=== PATIENT | female | born 1930 | race Caucasian/White ===

== ENCOUNTER 2016-02-19 18:59 | Inpatient (IN) | payer MEDICARE ==
[~2016-02-19] VITALS: Ht 165.1 cm; Wt 72.9 kg
[~2016-02-19 18:59] MED LIST: ASPI81TA82 PO; CIPR500T4 PO; CLOP75 PO; GEMF600 PO; GLIM2 PO; LOSA50 PO; METF500 PO; PRAV80 PO; SYNT137T PO; TASI150C OR
[2016-02-19 19:05] VITALS: BP 190/99; PULSE 105; RESP 16; TEMP 98.5; O2SAT 98
[2016-02-19] MEDS ORDERED: CIPR-9 PO (19:54)
[2016-02-19] MEDS ORDERED: METF1000 PO (19:54)
[2016-02-19] MEDS ORDERED: ASPI1TAB69 PO (19:54)
[2016-02-19] MEDS ORDERED: PRAV80TA2 PO (19:54)
[2016-02-19] MEDS ORDERED: LEVO125T4 PO (19:54)
[2016-02-19] MEDS ORDERED: LOSA50TA PO (19:54)
[2016-02-19] MEDS ORDERED: TASI150C PO (19:54)
[2016-02-19] MEDS ORDERED: ASPIRIN 81 MG CHEW TAB PO ONE (20:00)
[2016-02-19] MEDS ORDERED: SODIUM CHLORIDE 0.9% FLUSH 5 ML FLUSH IVF PRN ×2 (20:00→23:45)
[2016-02-19 20:02] LABS: AUTOMATED NEUTROPHIL # 9.6 TH/MM3 (1.8-7.7); BASOPHIL # 0.4 TH/MM3 (0-0.2); BASOPHIL % 3.4 % (0.0-2.0); EOSINOPHIL % 0.3 % (0.0-4.0); HEMO FLAGS DIFF FINAL; LYMPH % 14.6 % (9.0-44.0); LYMPHOCYTE # 1.8 TH/MM3 (1.0-4.8); MEAN CELL VOLUME 83.8 FL (80.0-100.0); MEAN CORPUSCULAR HEMOGLOBIN 26.7 PG (27.0-34.0); MEAN CORPUSCULAR HGB CONC 31.9 % (32.0-36.0); NEUT % 76.7 % (16.0-70.0); PLATELET COUNT 424 TH/MM3 (150-450); RED BLOOD COUNT 3.58 MIL/MM3 (4.00-5.30); WHITE BLOOD COUNT 12.4 TH/MM3 (4.0-11.0)
[2016-02-19 20:11] LABS: CHLORIDE 93 MEQ/L (98-107); POTASSIUM 3.9 MEQ/L (3.5-5.1); SODIUM (NA) 130 MEQ/L (136-145)
[2016-02-19 20:15] LABS: ANION GAP 13 MEQ/L (5-15); BICARBONATE 24.5 MEQ/L (21.0-32.0); BLOOD UREA NITROGEN 10 MG/DL (7-18)
[2016-02-19 20:16] LABS: APTT (PATIENT) 25.7 SEC (24.3-30.1); INTERNATIONAL NORMALIZED RATIO 0.9 RATIO; PROTHROMBIN TIME - PATIENT 10.3 SEC (9.8-11.6)
[2016-02-19 20:18] LABS: ALT (GPT) 31 U/L (10-53); AST (GOT) 19 U/L (15-37); GLOMERULAR FILTRATION RATE 70 ML/MIN (>89)
[2016-02-19 20:19] VITALS: BP 187/85; PULSE 107; RESP 18; O2SAT 97
[2016-02-19 20:19] LABS: TOTAL BILIRUBIN ADULT 0.4 MG/DL (0.2-1.0)
[2016-02-19 20:21] LABS: ALKALINE PHOSPHATASE 93 U/L (45-117)
[2016-02-19 20:30] LABS: CREATINE KINASE 71 U/L (26-192)
[2016-02-19 20:40] LABS: BLOOD, URINE NEG (NEG); GLUCOSE,URINE NEG (NEG); KETONE, URINE 15 mg/dL (NEG); NITRITE,URINE NEG (NEG)
[2016-02-19 20:55] LABS: METHOD OF COLLECTION VOIDED; URINE COLOR STRAW (YELLW/STRAW)
[2016-02-19 20:56] LABS: SQUAMOUS EPITHELIAL CELL URINE 0-3 /hpf (0-5); WBC, URINE 0-2 /hpf (0-5)
[2016-02-19 20:57] LABS: COMMENT (UR) CULT NOT INDICATED; CULTURE IF INDICATED CULT NOT INDICATED
--- NOTE | 2016-02-19 20:59 | RADHPO ---
EXAM DATE/TIME: 02/19/2016 20:26 [facility] COMPARISON: CHEST PA & LAT, November 27, 2014, 23:09. INDICATIONS : Chest pain. MEDICAL HISTORY : Hypertension. Hypercholesterolemia. Carcinoma, breast. Thyroid disease, Gallbladder disease, GERD , Arthritis, Bladder prolapse, Diabetes, Anemia, Shingles SURGICAL HISTORY : Coronary artery stent. Appendectomy. Cholecystectomy. Right breast biopsy, Tubal ligation, Hysterecto my, ENCOUNTER: Initial ACUITY: 1 day PAIN SCORE: 1/10 LOCATION: Bilateral chest FINDINGS: Subsegmental airspace disease present at the bases. Heart size is mildly enlarged. Trace pleural flui d.. No pneumothorax. Atherosclerotic change in aorta. CONCLUSION: 1. Subsegmental airspace disease at the lung bases. No pneumothorax. Jorge Avila MD on February 19, 2016 at 20:55 Board Certified Radiologist. This report was verified electronically.
[2016-02-19] MEDS ORDERED: FUROSEMIDE 40 MG/4 ML VIAL IV PUSH ONE (21:00)
[2016-02-19 21:10] VITALS: BP 182/74; PULSE 101; RESP 18; O2SAT 95
[2016-02-19] MEDS ORDERED: IOHEXOL 350 MG/ML 10 ML VIAL (for RAD DIAG) IV ONE (22:03)
--- NOTE | 2016-02-19 22:30 | RADHPO ---
EXAM DATE/TIME: 02/19/2016 21:48 [facility] COMPARISON: CT PULMONARY ANGIOGRAM, November 12, 2015, 10:05. INDICATIONS : Chest pain. IV CONTRAST: 75 cc Omnipaque 350 (iohexol) IV RADIATION DOSE: 12.55 CTDIvol (mGy) MEDICAL HISTORY : Hypertension. Gastroesophageal reflux disease. SURGICAL HISTORY : None. ENCOUNTER: Initial ACUITY: 1 day PAIN SCALE: 7/10 LOCATION: chest TECHNIQUE: Volumetric scanning of the chest was performed using a pulmonary embolism protocol MIP images were re constructed. Using automated exposure control and adjustment of the mA and/or kV according to patien t size, radiation dose was kept as low as reasonably achievable to obtain optimal diagnostic quality images. FINDINGS: There are no filling defects identified to suggest pulmonary embolic disease. Small bilateral pleural effusions. Scattered subsegmental atelectasis in the lungs. Pulmonary nodule right lower lobe is sta ble in appearance compared with October 2015. Moderate to severe coronary artery calcifications. No acute findings in the upper abdomen. CONCLUSION: 1. Negative for pulmonary embolic disease. 2. 12 mm nodule right lower lobe medially is stable in size and appearance since October 2015. Simeon jeremy, this is increased in size since 2013. Finding is suspicious for a slow-growing malignancy. Furth er evaluation with PET CT recommended if this has not been performed. 3. Small bilateral pleural effusions. Scattered atelectasis and scarring in the lungs. Jorge Avila MD on February 19, 2016 at 22:21 Board Certified Radiologist. This report was verified electronically.
[2016-02-19 22:31] VITALS: BP 174/80; PULSE 102; RESP 18; O2SAT 97
--- NOTE | 2016-02-19 22:35 | PD ---
HPI Chief Complaint: Chest Pain Time Seen by Provider: 19:44 Travel History International Travel<30 days: No Contact w/Intl Traveler<30days: No Traveled to known affect area: No History of Present Illness HPI Patient is an 85-year-old female presents emergency Department with shortness of breath and leg swelling for the past week. Patient states that earlier today she did have the sensation in her upper chest that she thought was reflux disease as well. She did not take anything for it and resolved spontaneously. She does not have a cloth colorer. She has no history of congestive heart failure ACS. No cough no congestion. She states that her shortness of breath does get worse when she exerts herself or lays flat. Denies any fever. PFSH Past Medical History Hx Anticoagulant Therapy: No Anemia: Yes Arthritis: Yes Asthma: No Anxiety: No Depression: No Heart Rhythm Problems: No Cancer: Yes (CML, RIGHT BREAST) Cardiac Catheterization: Yes (NEGATIVE IN THE ) Cardiovascular Problems: Yes High Cholesterol: Yes Chemotherapy: Yes Chest Pain: Yes (OCC) Congestive Heart Failure: No COPD: No Cerebrovascular Accident: Yes (TIA X2) Diabetes: Yes Patient Takes Glucophage: Yes Diminished Hearing: No Endocrine: Yes Gastrointestinal Disorders: No GERD: Yes Genitourinary: Yes (Bladder prolapse, FIBROID TUMORS) Headaches: Yes Hepatitis: No Hiatal Hernia: No Hypertension: Yes Immune Disorder: No Implanted Vascular Access Dvce: No Kidney Stones: No Musculoskeletal: Yes (BACK, HIP) Neurologic: No Psychiatric: No Reproductive: No Respiratory: Yes Migraines: No Radiation Therapy: No Renal Failure: No Seizures: No Shingles: Yes Sleep Apnea: No Thyroid Disease: Yes Ulcer: No Tetanus Vaccination: Unknown Influenza Vaccination: Yes ?: Not Menopausal: Yes : 2 Para: 2 Tubal Ligation: Yes Past Surgical History Abdominal Surgery: Yes AICD: No Appendectomy: Yes Arteriovenous Shunt: No Cardiac Surgery: No Section: Yes (X1) Cholecystectomy: Yes Ear Surgery: No Endocrine Surgery: No Eye Surgery: Yes (cataract RIGHT EYE) Genitourinary Surgery: Yes ("2009,bladder surgery,prolapse") Gynecologic Surgery: Yes (PARTIAL HYSTERECTOMY, C SECTION) Hysterectomy: Yes (PARTIAL) Insulin Pump: No Joint Replacement: No Mastectomy: Yes (RIGHT BREAST BIOPSY ONLY) Neurologic Surgery: No Oral Surgery: No Pacemaker: No Thoracic Surgery: No Other Surgery: Yes ("blocked tear duct,left side") Social History Alcohol Use: Yes ("GLASS OF WINE VERY RARELY") Tobacco Use: No (QUIT IN S) Substance Use: No Allergies-Medications (Allergen,Severity, Reaction): Coded Allergies: Sulfa (Verified Allergy, Severe, "face swells", 02/19/16) Codeine (Verified Adverse Reaction, Severe, "heart races", 02/19/16) Reported Meds & Prescriptions Reported Meds & Active Scripts Active Reported Pravastatin 80 Mg Tab 80 Mg PO HS Tasigna (Nilotinib) 150 Mg Cap 150 Mg PO Q12H Take on empty stomach Losartan (Losartan Potassium) 50 Mg Tab 50 Mg PO Q12HR Metformin (Metformin HCl) 1,000 Mg Tab 1,000 Mg PO BIDPC With meals Levothyroxine (Levothyroxine Sodium) 125 Mcg Tab 125 Mcg PO DAILY Cipro (Ciprofloxacin HCl) 500 Mg Tab 500 Mg PO BID Aspirin 81 Mg Tabdr 81 Mg PO DAILY Physical Exam Narrative GENERAL: Well-developed well-nourished in no apparent distress SKIN: Warm and dry. No rash. HEAD: Atraumatic. Normocephalic. EYES: Pupils equal and round. No scleral icterus. No injection or drainage. ENT: No nasal bleeding or discharge. Mucous membranes pink and moist. NECK: Trachea midline. No JVD. CARDIOVASCULAR: Regular rhythm and tachycardic.. No murmur appreciated. 2+ bilateral equal pulses in all 4 extremities RESPIRATORY: No accessory muscle use. Bibasilar faint rales otherwise clear.. Breath sounds equal bilaterally. GASTROINTESTINAL: Abdomen soft, non-tender, nondistended. Hepatic and splenic margins not palpable. MUSCULOSKELETAL: No obvious deformities. No clubbing. No cyanosis. 2+ bilateral equal pitting edema of the lower extremities level of the knee.. NEUROLOGICAL: Awake and alert. No obvious cranial nerve deficits. Motor grossly within normal limits. Normal speech. PSYCHIATRIC: Appropriate mood and affect; insight and judgment normal. Data Data Last Documented VS Vital Signs Date Time Temp Pulse Resp B/P Pulse Ox O2 Delivery O2 Flow Rate FiO2 02/19/16 23:24 108 18 184/75 97 Room Air 02/19/16 19:05 98.5 Orders Electrocardiogram (02/19/16 19:50) B-Type Natriuretic Peptide (02/19/16 19:50) Ckmb (Isoenzyme) Profile (02/19/16 19:50) Complete Blood Count With Diff (02/19/16 19:50) Comprehensive Metabolic Panel (02/19/16 19:50) Prothrombin Time / Inr (Pt) (02/19/16 19:50) Act Partial Throm Time (Ptt) (02/19/16 19:50) Troponin I (02/19/16 19:50) Ecg Monitoring (02/19/16 19:50) Bilateral Bp Monitoring (02/19/16 19:50) Iv Access Insert/Monitor (02/19/16 19:50) Oximetry (02/19/16 19:50) Oxygen Administration (02/19/16 19:50) Aspirin Chew (Aspirin Chew) (02/19/16 20:00) Sodium Chloride 0.9% Flush (Ns Flush) (02/19/16 20:00) Chest, Pa & Lat (02/19/16 19:50) Urinalysis - C+S If Indicated (02/19/16 19:54) Us Leg Venous Doppler Bilat (02/19/16 20:55) Ct Pulmonary Angiogram (02/19/16 ) Furosemide Inj (Lasix Inj) (02/19/16 21:00) Iohexol 350 Inj (Omnipaque 350 Inj) (02/19/16 22:03) Admit Order (Ed Use Only) (02/19/16 ) ^ Refinery Operator Helper / Telemetry (02/19/16 23:34) Creatine Kinase (Cpk) (02/20/16 01:50) Creatine Kinase (Cpk) (02/20/16 07:50) Troponin I (02/20/16 01:50) Troponin I (02/20/16 07:50) ^ Saline Lock (02/19/16 23:34) Resp Oxygen Clif C Titrat 1-4 L (02/19/16 ) ^ Notify Dr: Other (02/19/16 23:34) Sodium Chloride 0.9% Flush (Ns Flush) (02/20/16 09:00) Sodium Chloride 0.9% Flush (Ns Flush) (02/19/16 23:45) Labs Laboratory Tests Test 02/19/16 02/19/16 19:50 20:10 White Blood Count 12.4 TH/MM3 Red Blood Count 3.58 MIL/MM3 Hemoglobin 9.6 GM/DL Hematocrit 30.0 % Mean Corpuscular Volume 83.8 FL Mean Corpuscular Hemoglobin 26.7 PG Mean Corpuscular Hemoglobin 31.9 % Concent Red Cell Distribution Width 16.0 % Platelet Count 424 TH/MM3 Mean Platelet Volume 9.2 FL Neutrophils (%) (Auto) 76.7 % Lymphocytes (%) (Auto) 14.6 % Monocytes (%) (Auto) 5.0 % Eosinophils (%) (Auto) 0.3 % Basophils (%) (Auto) 3.4 % Neutrophils # (Auto) 9.6 TH/MM3 Lymphocytes # (Auto) 1.8 TH/MM3 Monocytes # (Auto) 0.6 TH/MM3 Eosinophils # (Auto) 0.0 TH/MM3 Basophils # (Auto) 0.4 TH/MM3 CBC Comment DIFF FINAL Differential Comment Prothrombin Time 10.3 SEC Prothromb Time International 0.9 RATIO Ratio Activated Partial 25.7 SEC Thromboplast Time Sodium Level 130 MEQ/L Potassium Level 3.9 MEQ/L Chloride Level 93 MEQ/L Carbon Dioxide Level 24.5 MEQ/L Anion Gap 13 MEQ/L Blood Urea Nitrogen 10 MG/DL Creatinine 0.78 MG/DL Estimat Glomerular Filtration 70 ML/MIN Rate Random Glucose 152 MG/DL Calcium Level 8.7 MG/DL Total Bilirubin 0.4 MG/DL Aspartate Amino Transf 19 U/L (AST/SGOT) Alanine Aminotransferase 31 U/L (ALT/SGPT) Alkaline Phosphatase 93 U/L Total Creatine Kinase 71 U/L Troponin I 0.02 NG/ML B-Type Natriuretic Peptide 258 PG/ML Total Protein 7.6 GM/DL Albumin 3.7 GM/DL Urine Collection Type VOIDED Urine Color STRAW Urine Turbidity CLEAR Urine pH 7.0 Urine Specific [place] 1.015 Urine Protein NEG mg/dL Urine Glucose (UA) NEG mg/dL Urine Ketones 15 mg/dL Urine Occult Blood NEG Urine Nitrite NEG Urine Bilirubin NEG Urine Leukocyte Esterase TRACE Urine WBC 0-2 /hpf Urine Squamous Epithelial 0-3 /hpf Cells Microscopic Urinalysis Comment CULT NOT INDICATED MDM Medical Decision Making Medical Screen Exam Complete: Yes Emergency Medical Condition: Yes Interpretation(s) EKG shows sinus tachycardia with normal axis normal R-wave progression. There is a biphasic T-wave pattern and V6 without any reciprocal changes. This is an abnormal EKG. Comparison to 11/12/2015, biphasic T-wave pattern and V6 is new, patient is not tachycardic. Differential Diagnosis ACS, RI, new onset CHF, PE, DVT. Narrative Course Patient is an 85-year-old female presents today with appears to be new onset congestive heart failure. She does have pedal edema and small rales in both bases. She is saturating well and appears well. CT of her PE is pending as well as an ultrasound. At 2235 I have been tasked with transporting a critically ill patient. Patient will be signed out temporarily to Dr. Samir Javier. She is stable for time being. She's been given Lasix. I return to the emergency department after the emergent transfer, patient is already been admitted to the hospitalist by Dr. aJvier for new onset CHF. Patient's EKG has been reviewed troponin negative BNP is minimally elevated to 58, animal hyponatremia at 130 UA negative. Patient has been informed of her findings and agrees for admission at this time. She states she is a little less short of breath after some Lasix. Last 24 hours Impressions Lower Extremity Ultrasound 02/19/162054 Signed Impressions: Service Date/Time: Friday, February 19, 2016 21:59 - CONCLUSION: Normal examination. Jorge Avila MD Chest X-Ray 02/19/16 1950 Signed Impressions: Service Date/Time: Friday, February 19, 2016 20:26 - CONCLUSION: 1. Subsegmental airspace disease at the lung bases. No pneumothorax. Jorge Avila MD CT Angiography 02/19/16 0000 Signed Impressions: Service Date/Time: Friday, February 19, 2016 21:48 - CONCLUSION: 1. Negative for pulmonary embolic disease. 2. 12 mm nodule right lower lobe medially is stable in size and appearance since October 2015. However, this is increased in size since 2013. Finding is suspicious for a slow-growing malignancy. Further evaluation with PET CT recommended if this has not been performed. 3. Small bilateral pleural effusions. Scattered atelectasis and scarring in the lungs. Jorge Avila MD Diagnosis Primary Impression: Congestive heart failure Qualified Code: I50.9 - Congestive heart failure, unspecified congestive heart failure chronicity, unspecified congestive heart failure type Admitting Information Admitting Physician Requests: Observation Condition: Stable Mika Bertrand MD Feb 19, 2016 22:35
--- NOTE | 2016-02-19 22:35 | RADHPO ---
EXAM DATE/TIME: 02/19/2016 21:59 [facility] COMPARISON: No previous studies available for comparison. INDICATIONS : Feet swelling. MEDICAL HISTORY : Hypertension. Hypercholesterolemia. Thyroid disease. SURGICAL HISTORY : Appendectomy.Cholecystectomy. Hysterectomy.Right breast biopsy. section. Tubal ligation. ENCOUNTER: Initial ACUITY: 2 weeks PAIN SCORE: 2/10 LOCATION: Bilateral leg. TECHNIQUE: Venous ultrasound of the left and right leg was performed from the inguinal ligament to the proximal calf. Real-time, color Doppler and spectral tracing, compression and augmentation techniques were us ed. FINDINGS: RIGHT LEG: There is normal compressibility of the deep venous system from the inguinal region to the proximal ca lf. No echogenic clot is seen in the lumen of the common femoral, femoral, popliteal, and posterior tibial veins. There is a normal response of the venous system to proximal and distal augmentation an d respiration. LEFT LEG: There is normal compressibility of the deep venous system from the inguinal region to the proximal ca lf. No echogenic clot is seen in the lumen of the common femoral, femoral, popliteal, and posterior tibial veins. There is a normal response of the venous system to proximal and distal augmentation an d respiration. CONCLUSION: Normal examination. Jorge Avila MD on February 19, 2016 at 22:32 Board Certified Radiologist. This report was verified electronically.
--- NOTE | 2016-02-19 22:45 | EKG ---
Date Performed: 02/19/2016 Time Performed: 19:17:08 PTAGE: 85 years EKG: Sinus tachycardia Nonspecific ST and T wave abnormalities Abnormal ECG PREVIOUS TRACING : 11/12/2015 08.00 Since previous tracing, no significant change noted DOCTOR: Derrick Dahl Interpretating Date/Time 02/19/2016 22:43:37
[2016-02-19 23:24] VITALS: BP 184/75; PULSE 108; RESP 18; O2SAT 97
[2016-02-20] VITALS (10 sets, daily range): BP systolic 121–175; BP diastolic 57–85; PULSE 64–101; RESP 18–20; TEMP 97–98; O2SAT 94–98
[2016-02-20] MEDS ORDERED: LORA1TAB12 PO (01:35)
[2016-02-20] MEDS ORDERED: AMIT10TA6 PO (01:35)
[2016-02-20] MEDS ORDERED: LORazepam 1 MG TAB PO SCH (02:00)
[2016-02-20] MEDS ORDERED: AMITRIPTYLINE HCL 10 MG TAB PO SCH (02:00)
--- NOTE | 2016-02-20 02:23 | PD ---
Physical Exam Date Seen by Provider: Feb 19, 2016 Time Seen by Provider: 23:00 Narrative accepted in transfer of care from Dr Bertrand Data Data Last Documented VS Vital Signs Date Time Temp Pulse Resp B/P Pulse Ox O2 Delivery O2 Flow Rate FiO2 02/19/16 23:24 108 18 184/75 97 Room Air 02/19/16 19:05 98.5 Orders Electrocardiogram (02/19/16 19:50) B-Type Natriuretic Peptide (02/19/16 19:50) Ckmb (Isoenzyme) Profile (02/19/16 19:50) Complete Blood Count With Diff (02/19/16 19:50) Comprehensive Metabolic Panel (02/19/16 19:50) Prothrombin Time / Inr (Pt) (02/19/16 19:50) Act Partial Throm Time (Ptt) (02/19/16 19:50) Troponin I (02/19/16 19:50) Ecg Monitoring (02/19/16 19:50) Bilateral Bp Monitoring (02/19/16 19:50) Iv Access Insert/Monitor (02/19/16 19:50) Oximetry (02/19/16 19:50) Oxygen Administration (02/19/16 19:50) Aspirin Chew (Aspirin Chew) (02/19/16 20:00) Sodium Chloride 0.9% Flush (Ns Flush) (02/19/16 20:00) Chest, Pa & Lat (02/19/16 19:50) Urinalysis - C+S If Indicated (02/19/16 19:54) Us Leg Venous Doppler Bilat (02/19/16 20:55) Ct Pulmonary Angiogram (02/19/16 ) Furosemide Inj (Lasix Inj) (02/19/16 21:00) Iohexol 350 Inj (Omnipaque 350 Inj) (02/19/16 22:03) Admit Order (Ed Use Only) (02/19/16 ) ^ Residential Treatment Specialist / Telemetry (02/19/16 23:34) Creatine Kinase (Cpk) (02/20/16 01:50) Creatine Kinase (Cpk) (02/20/16 07:50) Troponin I (02/20/16 01:50) Troponin I (02/20/16 07:50) ^ Saline Lock (02/19/16 23:34) Resp Oxygen Clif C Titrat 1-4 L (02/19/16 ) ^ Notify Dr: Other (02/19/16 23:34) Sodium Chloride 0.9% Flush (Ns Flush) (02/20/16 09:00) Sodium Chloride 0.9% Flush (Ns Flush) (02/19/16 23:45) Labs Laboratory Tests Test 02/19/16 02/19/16 19:50 20:10 White Blood Count 12.4 TH/MM3 Red Blood Count 3.58 MIL/MM3 Hemoglobin 9.6 GM/DL Hematocrit 30.0 % Mean Corpuscular Volume 83.8 FL Mean Corpuscular Hemoglobin 26.7 PG Mean Corpuscular Hemoglobin 31.9 % Concent Red Cell Distribution Width 16.0 % Platelet Count 424 TH/MM3 Mean Platelet Volume 9.2 FL Neutrophils (%) (Auto) 76.7 % Lymphocytes (%) (Auto) 14.6 % Monocytes (%) (Auto) 5.0 % Eosinophils (%) (Auto) 0.3 % Basophils (%) (Auto) 3.4 % Neutrophils # (Auto) 9.6 TH/MM3 Lymphocytes # (Auto) 1.8 TH/MM3 Monocytes # (Auto) 0.6 TH/MM3 Eosinophils # (Auto) 0.0 TH/MM3 Basophils # (Auto) 0.4 TH/MM3 CBC Comment DIFF FINAL Differential Comment Prothrombin Time 10.3 SEC Prothromb Time International 0.9 RATIO Ratio Activated Partial 25.7 SEC Thromboplast Time Sodium Level 130 MEQ/L Potassium Level 3.9 MEQ/L Chloride Level 93 MEQ/L Carbon Dioxide Level 24.5 MEQ/L Anion Gap 13 MEQ/L Blood Urea Nitrogen 10 MG/DL Creatinine 0.78 MG/DL Estimat Glomerular Filtration 70 ML/MIN Rate Random Glucose 152 MG/DL Calcium Level 8.7 MG/DL Total Bilirubin 0.4 MG/DL Aspartate Amino Transf 19 U/L (AST/SGOT) Alanine Aminotransferase 31 U/L (ALT/SGPT) Alkaline Phosphatase 93 U/L Total Creatine Kinase 71 U/L Troponin I 0.02 NG/ML B-Type Natriuretic Peptide 258 PG/ML Total Protein 7.6 GM/DL Albumin 3.7 GM/DL Urine Collection Type VOIDED Urine Color STRAW Urine Turbidity CLEAR Urine pH 7.0 Urine Specific [place] 1.015 Urine Protein NEG mg/dL Urine Glucose (UA) NEG mg/dL Urine Ketones 15 mg/dL Urine Occult Blood NEG Urine Nitrite NEG Urine Bilirubin NEG Urine Leukocyte Esterase TRACE Urine WBC 0-2 /hpf Urine Squamous Epithelial 0-3 /hpf Cells Microscopic Urinalysis Comment CULT NOT INDICATED MDM Medical Record Reviewed: Yes Supervised Visit with ONELIA: No Interpretation(s) Last Impressions Lower Extremity Ultrasound 02/19/162054 Signed Impressions: Service Date/Time: Friday, February 19, 2016 21:59 - CONCLUSION: Normal examination. Jorge Avila MD Chest X-Ray 02/19/16 1950 Signed Impressions: Service Date/Time: Friday, February 19, 2016 20:26 - CONCLUSION: 1. Subsegmental airspace disease at the lung bases. No pneumothorax. Jorge Avila MD CT Angiography 02/19/16 0000 Signed Impressions: Service Date/Time: Friday, February 19, 2016 21:48 - CONCLUSION: 1. Negative for pulmonary embolic disease. 2. 12 mm nodule right lower lobe medially is stable in size and appearance since October 2015. However, this is increased in size since 2013. Finding is suspicious for a slow-growing malignancy. Further evaluation with PET CT recommended if this has not been performed. 3. Small bilateral pleural effusions. Scattered atelectasis and scarring in the lungs. Jorge Avila MD Differential Diagnosis please refer to Dr Bertrand's dictation Narrative Course accepted in transfer of care from Dr Bertrand with request to the patient for new onset CHF after pending CT resulted Patient reports she feels clinically improved after receiving Lasix IV as ordered per prior providers management. Patient continues to have good urine output. Patient is no longer complaining of dyspnea with rest and supine positioning. Patient reports not feeling well times one week with progressive shortness of breath orthopnea and dyspnea on exertion as well as noticing lower extremity and peel edema which is new for her. Physician Communication Physician Communication discussed with DR Rosado --will accept for obs admission Diagnosis Primary Impression: Congestive heart failure Qualified Code: I50.9 - Congestive heart failure, unspecified congestive heart failure chronicity, unspecified congestive heart failure type Admitting Information Admitting Physician Requests: Observation Condition: Stable Sara Javier MD Feb 20, 2016 02:23
[2016-02-20] MEDS ORDERED: NILOTINIB 150 MG PO SCH (09:00)
[2016-02-20] MEDS: LEVOTHYROXINE SODIUM 125 MCG TAB PO SCH (09:00)
[2016-02-20] MEDS: LOSARTAN 50 MG TAB PO SCH ×2 (09:01→21:31)
[2016-02-20] MEDS: SODIUM CHLORIDE 0.9% FLUSH 5 ML FLUSH IVF SCH ×2 (09:01→21:32)
[2016-02-20] MEDS: ASPIRIN EC 81 MG TABEC PO SCH (09:01)
[2016-02-20 09:04] LABS: POTASSIUM 3.4 MEQ/L (3.5-5.1)
[2016-02-20 09:07] LABS: BICARBONATE 27.1 MEQ/L (21.0-32.0); MAGNESIUM 2.2 MG/DL (1.5-2.5)
[2016-02-20] MEDS ORDERED: POTASSIUM CHLORIDE 20 MEQ CONTROLLED RELEASE TAB PO SCH (12:00)
[2016-02-20] MEDS ORDERED: GLUCAGON 1 MG/ML VIAL OTHER PRN (12:00)
[2016-02-20] MEDS ORDERED: DEXTROSE 50% IN WATER 50 ML VIAL(D50) IV PUSH PRN (12:00)
[2016-02-20] MEDS ORDERED: FUROSEMIDE 40 MG TAB PO SCH (12:00)
[2016-02-20] MEDS ORDERED: GLIMEPIRIDE 2 MG TAB PO SCH (12:15)
[2016-02-20] MEDS: FUROSEMIDE 20 MG TAB PO SCH (12:21)
[2016-02-20] MEDS: ENOXAPARIN SODIUM 40 MG/0.4 ML SYRINGE SQ SCH (12:22)
[2016-02-20] MEDS: POTASSIUM CHLORIDE 20 MEQ CONTROLLED RELEASE TAB PO SCH (12:22)
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
--- NOTE | 2016-02-20 15:40 | EC ---
Study Study Date:02/20/2016 STUDY CONCLUSIONS SUMMARY - Left ventricle: The cavity size was normal. Wall thickness was increased in a pattern of mild LVH. Systolic function was mildly to moderately reduced. The estimated ejection fraction was in the range of 40% to 45%. Diffuse hypokinesis. - Aortic valve: Valve mobility was restricted. Transvalvular velocity was within the normal range. There was mild stenosis. Valve area: 0.68cm^2(VTI). - Mitral valve: Mildly calcified annulus. Mildly thickened leaflets, . Moderate regurgitation. - Left atrium: The atrium was mildly dilated. - Tricuspid valve: Mild-moderate regurgitation. - Pulmonary arteries: Systolic pressure was moderately increased. PA peak pressure: 73mm Hg (S). If LV function is below 40, please consider prescribing an ACEI or ARB or document rationale for non-use. PROCEDURE DATA STUDY STATUS: Elective. Procedure: Transthoracic echocardiography. Image quality was fair. Scanning was performed from the parasternal, apical, and subcostal acoustic windows. Study completion: The patient tolerated the procedure well. Transthoracic echocardiography. M-mode, complete 2D, complete spectral Doppler, and color Doppler. Patient status: Inpatient. CARDIAC ANATOMY LEFT VENTRICLE: The cavity size was normal. Wall thickness was increased in a pattern of mild LVH. Systolic function was mildly to moderately reduced. The estimated ejection fraction was in the range of 40% to 45%. Diffuse hypokinesis. AORTIC VALVE: Not well visualized. Moderately thickened, moderately calcified leaflets. Valve mobility was restricted. Doppler: Transvalvular velocity was within the normal range. There was mild stenosis. No regurgitation. Valve area: 0.68cm^2(VTI). Mean gradient: 15mm Hg (S). Peak gradient: 25mm Hg (S). AORTA: Aortic root: The aortic root was normal in size. MITRAL VALVE: Mildly calcified annulus. Mildly thickened leaflets, . Doppler: Transvalvular velocity was within the normal range. There was no evidence for stenosis. Moderate regurgitation. LEFT ATRIUM: The atrium was mildly dilated. RIGHT VENTRICLE: The cavity size was normal. Wall thickness was normal. PULMONIC VALVE: Doppler: Transvalvular velocity was within the normal range. There was no evidence for stenosis. No regurgitation. TRICUSPID VALVE: Structurally normal valve. Doppler: Transvalvular velocity was within the normal range. Mild-moderate regurgitation. PULMONARY ARTERY: The main pulmonary artery was normal-sized. Systolic pressure was moderately increased. RIGHT ATRIUM: The atrium was normal in size. PERICARDIUM: There was no pericardial effusion. BASIC MEASUREMENTS ADULT Normal Left ventricle LV internal dimension, ED, chordal level, *39.4 mm 43-52 PLAX LV internal dimension, ES, chordal level, 32.5 mm 23-38 PLAX Fractional shortening, chordal level, PLAX *18 % >29 LV posterior wall thickness, ED 13.1 mm IVS/LVPW ratio, ED 0.92 <1.3 Ventricular septum Septal thickness, ED 12.1 mm Aortic valve Leaflet separation 17 mm 15-26 Right ventricle RV internal dimension, ED, PLAX 26.9 mm 19-38 BASIC MEASUREMENTS ADULT Normal Aortic valve Leaflet separation 17 mm 15-26 Aorta Root diameter, ED 23 mm 20-37 Left atrium Anterior-posterior dimension, ES *45 mm 19-40 LA/aortic root ratio 1.96 DOPPLER MEASUREMENTS ADULT Normal Main pulmonary artery Pressure, S *73 mm Hg =30 Aortic valve Peak velocity, S 250 cm/s Mean velocity, S 186 cm/s VTI, S 57.5 cm Mean gradient, S 15 mm Hg Peak gradient, S 25 mm Hg Valve area, VTI 0.68 cm^2 Tricuspid valve Regurgitant peak velocity 397 cm/s Peak RV-RA gradient, S 63 mm Hg Maximal regurgitant velocity 397 cm/s Systemic veins Estimated CVP 10 mm Hg Right ventricle RV pressure, S *73 mm Hg <30 LEGEND: Mean values are shown as u=mean value. Asterisk (*) browning values outside specified normal range. Prepared and signed by Emil Salamanca [id number]
[2016-02-20] MEDS: INSULIN ASPART SUPPLEMENTAL SCALE SQ SCH ×2 (16:00→21:00)
[2016-02-20 17:21] LABS: POTASSIUM 3.9 MEQ/L (3.5-5.1)
[2016-02-20 17:40] LABS: BICARBONATE 28.2 MEQ/L (21.0-32.0)
[2016-02-20] MEDS ORDERED: LORazepam 1 MG TAB PO PRN (21:00)
[2016-02-20] MEDS: PRAVASTATIN SOD 80 MG TAB PO SCH (21:31)
[2016-02-20] MEDS: AMITRIPTYLINE HCL 10 MG TAB PO SCH (21:31)
[2016-02-21] VITALS (7 sets, daily range): BP systolic 124–160; BP diastolic 63–78; PULSE 82–93; RESP 15–20; TEMP 96.4–98.7; O2SAT 96–100
[2016-02-21] MEDS: LEVOTHYROXINE SODIUM 125 MCG TAB PO SCH (06:34)
[2016-02-21] MEDS: INSULIN ASPART SUPPLEMENTAL SCALE SQ SCH ×4 (06:39→21:00)
[2016-02-21 07:09] LABS: POTASSIUM 4.6 MEQ/L (3.5-5.1)
[2016-02-21 07:14] LABS: BICARBONATE 27.5 MEQ/L (21.0-32.0)
[2016-02-21] MEDS ORDERED: GLIMEPIRIDE 4 MG TAB PO SCH (08:00)
[2016-02-21] MEDS: FUROSEMIDE 20 MG TAB PO SCH (08:35)
[2016-02-21] MEDS: ASPIRIN EC 81 MG TABEC PO SCH (08:36)
[2016-02-21] MEDS: POTASSIUM CHLORIDE 20 MEQ CONTROLLED RELEASE TAB PO SCH (08:36)
[2016-02-21] MEDS: LOSARTAN 50 MG TAB PO SCH ×2 (08:36→21:34)
[2016-02-21] MEDS: SODIUM CHLORIDE 0.9% FLUSH 5 ML FLUSH IVF SCH ×2 (08:36→21:34)
[2016-02-21] MEDS ORDERED: REGADENOSON INJ 0.4 MG/5 ML SYR IV ONE (09:53)
--- NOTE | 2016-02-21 11:26 | RADHPO ---
EXAM DATE/TIME: 02/21/2016 10:10 [place] COMPARISON: MYOCARDIAL PERF PHARM SPECT, GATED W/EF, November 28, 2014, 10:42. INDICATIONS : Leg swelling and increased dyspnea. Congestive heart failure. DOSE: 25.8 mCi Tc99m Myoview at stress. 8.1 mCi Tc99m Myoview at rest. 0.4 mg Lexiscan STRESS SYMPTOMS: Shortness of breath and headache. EJECTION FRACTION: 34% MEDICAL HISTORY : Hypertension. Gastroesophageal reflux disease. Carcinoma, breast. SURGICAL HISTORY : Hysterectomy. Appendectomy. section. Cholecystectomy. ENCOUNTER: Initial ACUITY: 1 day PAIN SCALE: 0/10 LOCATION: Left chest TECHNIQUE: The patient underwent pharmacologic stress with infusion of prescribed dose. Continuous ECG tracing was monitored during stress. Gated SPECT imaging was performed after stress and conventional SPECT i maging was performed at rest. The examination was performed on a SPECT/CT scanner, both attenuation and non-corrected datasets were reviewed. FINDINGS: There is redistribution in the anterior lateral wall involving the large segment of myocardium. He s econdary redistribution is seen in the inferior septal region. The ejection fraction is now 34%, dec reased from 52%. CONCLUSION: Redistribution consistent with stress-induced ischemia. Depressed ejection fraction 34%. RISK CATEGORY: Intermediate (1-3% Annual Mortality Rate) Noel Downs MD FACR on February 21, 2016 at 11:21 Board Certified Radiologist. This report was verified electronically.
--- NOTE | 2016-02-21 13:22 | HHI.PR ---
Subjective Remarks slept well, no indigestion, no sob able to lie flat, voiding Objective Vitals Vital Signs Date Time Temp Pulse Resp B/P Pulse Ox O2 Delivery O2 Flow Rate FiO2 02/21/16 08:56 97.1 93 15 124/73 97 02/21/16 04:00 98.1 90 20 132/63 98 02/21/16 00:00 97.3 82 18 133/65 96 02/20/16 20:00 97.9 101 20 154/80 98 02/20/16 20:00 96 02/20/16 16:00 97.1 95 19 157/72 95 02/20/16 02/20/16 02/21/16 15:00 23:00 07:00 Intake Total 0 ml 0 ml 0 ml Output Total 650 ml 2300 ml Balance -650 ml -2300 ml 0 ml Intake Oral 0 ml 0 ml IV Total 0 ml Output Urine Total 650 ml 2300 ml # Voids 2 # Bowel Movements 0 0 Result Diagram: 02/19/16 1950 02/21/16 0612 Other Results Vital Signs Date Time Temp Pulse Resp B/P Pulse Ox O2 Delivery O2 Flow Rate FiO2 02/21/16 08:56 97.1 93 15 124/73 97 02/20/16 07:45 Nasal Cannula 1.50 I/O 02/20/16 02/20/16 02/21/16 08:00 16:00 00:00 Intake Total 0 ml 0 ml Output Total 400 ml 650 ml 2300 ml Balance -400 ml -650 ml -2300 ml Imaging Last Impressions Myocardial Perfusion Scan Nuc Med 02/21/16 0600 Signed Impressions: Service Date/Time: Sunday, February 21, 2016 10:10 - CONCLUSION: Redistribution consistent with stress-induced ischemia. Depressed ejection fraction 34%%. RISK CATEGORY: Intermediate (1-3%% Annual Mortality Rate) Noel Downs MD FACR Lower Extremity Ultrasound 02/19/162054 Signed Impressions: Service Date/Time: Friday, February 19, 2016 21:59 - CONCLUSION: Normal examination. Jorge Avila MD Chest X-Ray 02/19/16 1950 Signed Impressions: Service Date/Time: Friday, February 19, 2016 20:26 - CONCLUSION: 1. Subsegmental airspace disease at the lung bases. No pneumothorax. Jorge Avila MD CT Angiography 02/19/16 0000 Signed Impressions: Service Date/Time: Friday, February 19, 2016 21:48 - CONCLUSION: 1. Negative for pulmonary embolic disease. 2. 12 mm nodule right lower lobe medially is stable in size and appearance since October 2015. However, this is increased in size since 2013. Finding is suspicious for a slow-growing malignancy. Further evaluation with PET CT recommended if this has not been performed. 3. Small bilateral pleural effusions. Scattered atelectasis and scarring in the lungs. Jorge Avila MD Objective Remarks Lying in bed NAD Lungs clear, faint crackle at rt base rrr +bs nontender no edema ambulating with front wheeled walker A/P Problem List: (1) Congestive heart failure Status: Acute Plan: she had a postive stress test today with decreased EF as compared to 2 years ago currently she is feeling better after diuresis, have asked cardiology to see her , responding to low dose furosemide, cont arb ,asa (2) Type 2 diabetes mellitus Status: Chronic Plan: cont diabetic diet, ssi and glimeperide, metformin on hold due to cta (3) HTN (hypertension) Status: Chronic Plan: on losartan 50 bid blood pressure doing well with addition of furosemide (4) Chronic myelogenous leukemia Status: Chronic Plan: On tasigna, followed by Dr Correa, may need medication change depending on cardiac evaluation (5) Hyperlipidemia Status: Chronic Plan: cont pravastatin Problem Qualifiers (1) Congestive heart failure: Qualified Code: I50.9 - Congestive heart failure, unspecified congestive heart failure chronicity, unspecified congestive heart failure type (2) HTN (hypertension): Qualified Code: I10 - Essential hypertension Claribel Rosado MD Feb 21, 2016 13:22
[2016-02-21] MEDS: ENOXAPARIN SODIUM 40 MG/0.4 ML SYRINGE SQ SCH (13:45)
[2016-02-21] MEDS ORDERED: MAGNESIUM HYDROXIDE SUSP 30 ML CUP PO PRN (18:00)
[2016-02-21] MEDS: AMITRIPTYLINE HCL 10 MG TAB PO SCH (21:34)
[2016-02-21] MEDS: PRAVASTATIN SOD 80 MG TAB PO SCH (21:34)
[2016-02-21] MEDS: LORazepam 1 MG TAB PO PRN (21:53)
[2016-02-22] VITALS (11 sets, daily range): BP systolic 133–151; BP diastolic 67–80; PULSE 76–99; RESP 18–20; TEMP 96.1–99; O2SAT 95–99
[2016-02-22 05:47] LABS: POTASSIUM 4.2 MEQ/L (3.5-5.1)
[2016-02-22] MEDS: INSULIN ASPART SUPPLEMENTAL SCALE SQ SCH ×4 (05:48→21:34)
[2016-02-22] MEDS: LEVOTHYROXINE SODIUM 125 MCG TAB PO SCH (05:48)
[2016-02-22 05:50] LABS: BICARBONATE 27.1 MEQ/L (21.0-32.0)
[2016-02-22] MEDS: LOSARTAN 50 MG TAB PO SCH ×2 (08:00→21:23)
[2016-02-22] MEDS: ASPIRIN EC 81 MG TABEC PO SCH (08:01)
[2016-02-22] MEDS: POTASSIUM CHLORIDE 20 MEQ CONTROLLED RELEASE TAB PO SCH (08:01)
[2016-02-22] MEDS: SODIUM CHLORIDE 0.9% FLUSH 5 ML FLUSH IVF SCH ×2 (08:01→21:23)
[2016-02-22] MEDS: FUROSEMIDE 20 MG TAB PO SCH (08:01)
--- NOTE | 2016-02-22 11:22 | HHI.PR ---
Subjective Remarks ambulating in room, voiding well, a little cough Objective Vitals Vital Signs Date Time Temp Pulse Resp B/P Pulse Ox O2 Delivery O2 Flow Rate FiO2 02/22/16 09:03 90 02/22/16 08:00 97.8 89 18 136/75 95 02/22/16 04:00 96.1 93 20 151/80 99 02/22/16 00:00 97.0 99 20 142/67 96 02/21/16 20:10 93 02/21/16 20:00 98.3 90 20 136/63 100 02/21/16 17:58 98.7 90 15 158/73 98 02/21/16 14:33 96.4 92 16 160/78 98 02/21/16 02/21/16 02/22/16 15:00 23:00 07:00 Intake Total 240 ml Balance 240 ml Intake Oral 240 ml # Voids 1 Result Diagram: 02/19/16194902/22/16 0500 Imaging Last Impressions Myocardial Perfusion Scan Nuc Med 02/21/16 0600 Signed Impressions: Service Date/Time: Sunday, February 21, 2016 10:10 - CONCLUSION: Redistribution consistent with stress-induced ischemia. Depressed ejection fraction 34%%. RISK CATEGORY: Intermediate (1-3%% Annual Mortality Rate) Noel Downs MD FACR Lower Extremity Ultrasound 02/19/162054 Signed Impressions: Service Date/Time: Friday, February 19, 2016 21:59 - CONCLUSION: Normal examination. Jorge Avila MD Chest X-Ray 02/19/16 1950 Signed Impressions: Service Date/Time: Friday, February 19, 2016 20:26 - CONCLUSION: 1. Subsegmental airspace disease at the lung bases. No pneumothorax. Jorge Avila MD CT Angiography 02/19/16 0000 Signed Impressions: Service Date/Time: Friday, February 19, 2016 21:48 - CONCLUSION: 1. Negative for pulmonary embolic disease. 2. 12 mm nodule right lower lobe medially is stable in size and appearance since October 2015. However, this is increased in size since 2013. Finding is suspicious for a slow-growing malignancy. Further evaluation with PET CT recommended if this has not been performed. 3. Small bilateral pleural effusions. Scattered atelectasis and scarring in the lungs. Jorge Avila MD Objective Remarks sitting on edge of in bed NAD Lungs clear, faint crackle at rt base rrr +bs nontender no edema ambulating with front wheeled walker A/P Problem List: (1) Congestive heart failure Status: Acute Plan: she had a postive stress test today with decreased EF as compared to 2 years ago currently she is feeling better after diuresis, have asked cardiology to see her , responding to low dose furosemide, cont arb ,asa awaiting cardiology input (2) Type 2 diabetes mellitus Status: Chronic Plan: cont diabetic diet, ssi and glimeperide, resume metformin (3) HTN (hypertension) Status: Chronic Plan: on losartan 50 bid blood pressure doing well with addition of furosemide (4) Chronic myelogenous leukemia Status: Chronic Plan: On tasigna, followed by Dr Correa, may need medication change depending on cardiac evaluation (5) Hyperlipidemia Status: Chronic Plan: cont pravastatin Problem Qualifiers (1) Congestive heart failure: Qualified Code: I50.21 - Acute systolic congestive heart failure (2) HTN (hypertension): Qualified Code: I10 - Essential hypertension Claribel Rosado MD Feb 22, 2016 11:22 Claribel Rosado MD Feb 22, 2016 11:22
[2016-02-22] MEDS: ENOXAPARIN SODIUM 40 MG/0.4 ML SYRINGE SQ SCH (11:24)
--- NOTE | 2016-02-22 13:39 | MB ---
cc: BECCA PATIÑO MD DATE OF CONSULTATION: 02/22/2016 HISTORY OF PRESENT ILLNESS This is a 85-year-old woman, admitted to the hospital with increasing shortness of breath with exertion and some mild lower extremity edema. She has noted over the past several weeks episodes as well as heartburn which has been off and on, no particular precipitant is present for it and she has used Tums or Rolaids with varying relief. The heartburn can last as long as several hours. She is admitted to the hospital and chest x-ray was unremarkable. She was felt to have a mild degree of heart failure. She was given Lasix with improvement in her ankle edema and shortness of breath. Myocardial perfusion scan was also done which has revealed redistribution in the anterior wall with ejection fraction lower than that prior. We do note that she had a previous stress test 2 years ago which was unremarkable. An echocardiogram was done which has shown estimated ejection fraction of 40-45% with mild aortic stenosis. PAST MEDICAL HISTORY Past medical history has otherwise been significant for: 1. CML which is being followed by Dr. Correa. 2. Solitary pulmonary nodule. 3. History of hypertension. 4. Hyperlipidemia. 5. Type 2 diabetes. ALLERGIES CODEINE AND SULFA. MEDICATIONS Current medications have included: 1. Pravastatin 80 mg daily. 2. Metformin twice a day. 3. Tasigna 150 twice a day. 4. Losartan 50 mg daily. 5. Amitriptyline p.o. at bedtime. 6. Levothyroxine. 7. Aspirin 81 mg daily. 8. Glimepiride 4 mg in the morning and 2 mg in the evening. PHYSICAL EXAMINATION GENERAL: She is awake and alert, in no acute distress. VITAL SIGNS: Her blood pressure is 130/70 and she is afebrile. NECK: There is no neck vein distension. Carotids are normal. LUNGS: Lungs are clear. CARDIOVASCULAR: Exam reveals regular rate and rhythm. There is a 2/6 systolic murmur at the apex. No diastolic murmur is present. ABDOMEN: Soft without tenderness. EXTREMITIES: Reveal no edema. LABORATORY DATA Laboratory examination shows normal creatinine. Her H&H is 9.6 over 30, white count is 12,400 with a fairly normal differential. ASSESSMENT The patient has evidence to suggest unstable angina with positive myocardial perfusion scan suggesting a rather large vascular bed at risk. We will add metoprolol and nitrates to her regimen and we will plan on transferring her to [place] for catheterization tomorrow. MD MORENO Morataya/FAITH /12:48 PM /1:25 PM
[2016-02-22] MEDS: METOPROLOL TARTRATE 25 MG TAB PO SCH ×2 (14:35→21:23)
[2016-02-22] MEDS: NITROGLYCERIN 2% OINT 1 GM PACKET TOPICAL SCH ×3 (14:36→23:45)
[2016-02-22 14:41] LABS: AUTOMATED NEUTROPHIL # 5.1 TH/MM3 (1.8-7.7); BASOPHIL # 0.2 TH/MM3 (0-0.2); BASOPHIL % 2.4 % (0.0-2.0); EOSINOPHIL # 0.3 TH/MM3 (0-0.4); EOSINOPHIL % 3.2 % (0.0-4.0); HEMATOCRIT 30.5 % (35.0-46.0); HEMO FLAGS DIFF FINAL; LYMPH % 23.2 % (9.0-44.0); LYMPHOCYTE # 1.8 TH/MM3 (1.0-4.8); MEAN CELL VOLUME 84.8 FL (80.0-100.0); MEAN CORPUSCULAR HEMOGLOBIN 26.7 PG (27.0-34.0); MEAN CORPUSCULAR HGB CONC 31.5 % (32.0-36.0); NEUT % 65.2 % (16.0-70.0); PLATELET COUNT 397 TH/MM3 (150-450); RED CELL DISTRIBUTION WIDTH 16.3 % (11.6-17.2); WHITE BLOOD COUNT 7.9 TH/MM3 (4.0-11.0)
[2016-02-22] MEDS ORDERED: metFORMIN HCL 500 MG TAB PO SCH (18:00)
[2016-02-22] MEDS ORDERED: DOCUSATE SODIUM 50 MG/SENNA 8.6 MG TAB PO PRN (21:00)
[2016-02-22] MEDS: PRAVASTATIN SOD 80 MG TAB PO SCH (21:23)
[2016-02-22] MEDS: LORazepam 1 MG TAB PO PRN (21:34)
[2016-02-22] MEDS: AMITRIPTYLINE HCL 10 MG TAB PO SCH (22:19)
[2016-02-23] VITALS (32 sets, daily range): BP systolic 129–158; BP diastolic 58–79; PULSE 69–99; RESP 17–20; TEMP 97.2–98.7; O2SAT 96–98
[2016-02-23] MEDS: LEVOTHYROXINE SODIUM 125 MCG TAB PO SCH (06:32)
[2016-02-23] MEDS: NITROGLYCERIN 2% OINT 1 GM PACKET TOPICAL SCH ×4 (06:32→23:16)
[2016-02-23] MEDS: INSULIN ASPART SUPPLEMENTAL SCALE SQ SCH ×4 (06:38→21:07)
--- NOTE | 2016-02-23 08:08 | HHI.PR ---
Subjective Remarks no sob. edema better. Objective Vitals heart reg lung cta abd s/nt ext no edema Vital Signs Date Time Temp Pulse Resp B/P Pulse Ox O2 Delivery O2 Flow Rate FiO2 02/23/16 08:03 97.2 85 17 129/73 97 02/23/16 06:00 86 02/23/16 05:00 74 02/23/16 04:00 98.7 79 20 145/78 96 02/23/16 04:00 79 02/23/16 03:00 76 02/23/16 02:00 78 02/23/16 01:00 75 02/23/16 00:00 71 02/23/16 00:00 98.4 71 18 137/68 98 02/22/16 23:00 76 02/22/16 22:00 78 02/22/16 21:00 84 02/22/16 20:00 98.8 91 20 133/72 96 02/22/16 20:00 91 02/22/16 18:10 99.0 88 18 144/79 99 02/22/16 18:00 99.0 88 18 144/79 99 02/22/16 12:00 97.8 88 18 134/74 95 02/22/16 09:03 90 02/22/16 02/22/16 02/23/16 15:00 23:00 07:00 Intake Total 0 ml 150 ml Balance 0 ml 150 ml Intake Oral 150 ml IV Total 0 ml 0 ml # Voids 3 # Bowel Movements 0 Result Diagram: 02/22/16 0500 02/22/16 0500 Imaging Last Impressions Myocardial Perfusion Scan Nuc Med 02/21/16 0600 Signed Impressions: Service Date/Time: Sunday, February 21, 2016 10:10 - CONCLUSION: Redistribution consistent with stress-induced ischemia. Depressed ejection fraction 34%%. RISK CATEGORY: Intermediate (1-3%% Annual Mortality Rate) Noel Downs MD FACR Lower Extremity Ultrasound 02/19/162054 Signed Impressions: Service Date/Time: Friday, February 19, 2016 21:59 - CONCLUSION: Normal examination. Jorge Avila MD Chest X-Ray 02/19/16 1950 Signed Impressions: Service Date/Time: Friday, February 19, 2016 20:26 - CONCLUSION: 1. Subsegmental airspace disease at the lung bases. No pneumothorax. Jorge Avila MD CT Angiography 02/19/16 0000 Signed Impressions: Service Date/Time: Friday, February 19, 2016 21:48 - CONCLUSION: 1. Negative for pulmonary embolic disease. 2. 12 mm nodule right lower lobe medially is stable in size and appearance since October 2015. However, this is increased in size since 2013. Finding is suspicious for a slow-growing malignancy. Further evaluation with PET CT recommended if this has not been performed. 3. Small bilateral pleural effusions. Scattered atelectasis and scarring in the lungs. Jorge Avila MD A/P Problem List: (1) Congestive heart failure Status: Acute Plan: Presents with new onset systolic chf. echo ef 40% positive stress test for ischemia Pt transferred to [facility] today hold metformin cont bb/arb/diuretic bmp tomorrow (2) Type 2 diabetes mellitus Status: Chronic Plan: cont amaryl hold metformin ssi (3) HTN (hypertension) Status: Chronic Plan: cont current meds. (4) Chronic myelogenous leukemia Status: Chronic Plan: [facility],will call Dr Correa prior to d/c (5) Hyperlipidemia Status: Chronic Plan: cont pravastatin Problem Qualifiers (1) Congestive heart failure: Qualified Code: I50.21 - Acute systolic congestive heart failure (2) HTN (hypertension): Qualified Code: I10 - Essential hypertension Aguilar Garza MD Feb 23, 2016 08:08
[2016-02-23] MEDS: ASPIRIN EC 81 MG TABEC PO SCH (08:38)
[2016-02-23] MEDS: FUROSEMIDE 20 MG TAB PO SCH (08:38)
[2016-02-23] MEDS: LOSARTAN 50 MG TAB PO SCH ×2 (08:38→20:26)
[2016-02-23] MEDS: POTASSIUM CHLORIDE 20 MEQ CONTROLLED RELEASE TAB PO SCH (08:38)
[2016-02-23] MEDS: METOPROLOL TARTRATE 25 MG TAB PO SCH ×2 (08:38→20:26)
[2016-02-23] MEDS: SODIUM CHLORIDE 0.9% FLUSH 5 ML FLUSH IVF SCH ×2 (08:40→21:07)
--- NOTE | 2016-02-23 11:39 | PD.CARD.PN ---
Subjective Subjective Remarks No further chest pain Objective Vital Signs / I&O Vital Signs Date Time Temp Pulse Resp B/P Pulse Ox O2 Delivery O2 Flow Rate FiO2 02/23/16 10:00 69 02/23/16 09:00 80 02/23/16 08:03 97.2 85 17 129/73 97 02/23/16 08:00 89 02/23/16 07:00 75 02/23/16 06:00 86 02/23/16 05:00 74 02/23/16 04:00 98.7 79 20 145/78 96 02/23/16 04:00 79 02/23/16 03:00 76 02/23/16 02:00 78 02/23/16 01:00 75 02/23/16 00:00 71 02/23/16 00:00 98.4 71 18 137/68 98 02/22/16 23:00 76 02/22/16 22:00 78 02/22/16 21:00 84 02/22/16 20:00 98.8 91 20 133/72 96 02/22/16 20:00 91 02/22/16 18:10 99.0 88 18 144/79 99 02/22/16 18:00 99.0 88 18 144/79 99 02/22/16 12:00 97.8 88 18 134/74 95 I/O 02/22/16 02/22/16 02/22/16 02/23/16 02/23/16 02/23/16 07:00 15:00 23:00 07:00 15:00 23:00 Intake Total 240 ml 0 ml 150 ml Balance 240 ml 0 ml 150 ml Intake Oral 240 ml 150 ml IV Total 0 ml 0 ml # Voids 1 3 # Bowel Movements 0 Physical Exam Lungs clear RRR Assessment and Plan Assessment and Plan For cath at 12.15 Miguelito Andre MD, FACC Feb 23, 2016 11:39
[2016-02-23] MEDS: ENOXAPARIN SODIUM 40 MG/0.4 ML SYRINGE SQ SCH (12:00)
[2016-02-23] MEDS ORDERED: HEPARIN-NS/PF INJ 500 ML ONE (12:06)
[2016-02-23] MEDS ORDERED: MIDAZOLAM HCL 2 MG/2 ML VIAL ONE (12:06)
[2016-02-23] MEDS ORDERED: HEPARIN SODIUM - IV 10,000 UNITS/10 ML VIAL ONE (12:36)
[2016-02-23] MEDS ORDERED: CLOPIDOGREL 300 MG TAB ONE (12:50)
[2016-02-23] MEDS ORDERED: MISC INFORMATION XX ONE (13:00)
[2016-02-23] MEDS ORDERED: IOHEXOL 350 MG/ML 100 ML BTL (for Cath Lab) OTHER ONE (13:00)
[2016-02-23] MEDS ORDERED: SODIUM CHLOR 0.9% 250 ML INJ 250 ML IV PRN (13:00)
[2016-02-23] MEDS ORDERED: BACITRACIN OINT 0.9 GM PKT TOP ONE (13:00)
[2016-02-23] MEDS ORDERED: LIDOCAINE HCL 1% 50 ML VIAL INFIL PRN (13:00)
[2016-02-23] MEDS ORDERED: LORazepam 2 MG/ML VIAL IV PRN (13:00)
[2016-02-23] MEDS ORDERED: ONDANSETRON HCL 4 MG/2 ML VIAL IV PRN (13:00)
[2016-02-23] MEDS ORDERED: SODIUM CHLORIDE 0.9% FLUSH 5 ML FLUSH IVF PRN (13:00)
[2016-02-23] MEDS ORDERED: METOCLOPRAMIDE HCL 10 MG/2 ML VIAL IV PRN (13:00)
[2016-02-23] MEDS ORDERED: ATROPINE SULFATE 1 MG/ML VIAL IV PRN (13:00)
[2016-02-23] MEDS ORDERED: ACETAMINOPHEN 325 MG TAB PO PRN (13:00)
--- NOTE | 2016-02-23 13:13 | MA ---
cc: BECCA PATIÑO MD DATE: 02/23/2016 PROCEDURE Cardiac catheterization. PROCEDURAL STATEMENTS The patient was prepped and draped in the usual fashion. A 6 sheath was inserted percutaneously into the right femoral artery. Coronary angiography was done with Celina preformed catheters. RESULTS The left main coronary was normal. The left anterior descending artery was essentially normal throughout its course. A ramus intermedius branch arose between the circumflex and the LAD and demonstrated a high-grade stenosis in its proximal portion compromising the lumen by approximately 90%. A small branch vessel arose from the center of this vessel as well. In the distal portion of the ramus branch a second 40-50% stenosis was present. The left circumflex artery descended into the AV groove and gave off two obtuse marginal branches. The circumflex itself was anatomically dominant. No other significant lesions were seen. The right coronary was small and non-dominant. A 75-80% stenosis was present in its proximal portion. INTERVENTION It was felt that the ramus branch was probably the culprit artery to explain the patient's symptoms. An XB 3.5 guide was used and heparin was administered with an ACT of 233. A Biz In [employer] Box JV wire was advanced into the distal ramus. Pre-dilatation with a 2.0 balloon was done resulting in a fairly good cosmetic result with some haziness noted in the midportion of the lesion. The balloon was withdrawn. A 2.25 x 12 mm bare metal stent was then deployed to 12 atmospheres with a very good cosmetic result. DYLAN-III flow was present pre and post procedure and there was no evidence for dissection. The equipment was withdrawn. The sheath was sutured in place. The patient returned to her room in good condition. CONCLUSIONS Successful PTCA and stenting of the ramus intermedius branch. MD MORENO [place]/ORESTES /12:59 PM /1:04 PM
[2016-02-23] MEDS: PRAVASTATIN SOD 80 MG TAB PO SCH (20:26)
[2016-02-23] MEDS: AMITRIPTYLINE HCL 10 MG TAB PO SCH (20:26)
[2016-02-23] MEDS ORDERED: ATORVASTATIN 80 MG TAB PO SCH (21:00)
[2016-02-23] MEDS ORDERED: SODIUM CHLORIDE 0.9% FLUSH 5 ML FLUSH IVF SCH (21:00)
[2016-02-23] MEDS: LORazepam 1 MG TAB PO PRN (23:16)
[2016-02-24] VITALS (11 sets, daily range): BP systolic 131–146; BP diastolic 66–74; PULSE 72–88; RESP 16–18; TEMP 97.7–98; O2SAT 97–98
[2016-02-24 03:43] LABS: AUTOMATED NEUTROPHIL # 6.2 TH/MM3 (1.8-7.7); BASOPHIL % 0.4 % (0.0-2.0); EOSINOPHIL # 0.2 TH/MM3 (0-0.4); EOSINOPHIL % 2.3 % (0.0-4.0); HEMATOCRIT 29.6 % (35.0-46.0); HEMO FLAGS DIFF FINAL; LYMPH % 17.4 % (9.0-44.0); LYMPHOCYTE # 1.5 TH/MM3 (1.0-4.8); MEAN CELL VOLUME 82.3 FL (80.0-100.0); MEAN CORPUSCULAR HEMOGLOBIN 26.7 PG (27.0-34.0); MEAN CORPUSCULAR HGB CONC 32.4 % (32.0-36.0); MONO % 7.9 % (0.0-8.0); PLATELET COUNT 412 TH/MM3 (150-450); RED CELL DISTRIBUTION WIDTH 16.5 % (11.6-17.2); WHITE BLOOD COUNT 8.6 TH/MM3 (4.0-11.0)
[2016-02-24 04:12] LABS: BICARBONATE 27.1 MEQ/L (21.0-32.0)
[2016-02-24 04:15] LABS: HDL CHOLESTEROL 47.4 MG/DL (40.0-60.0)
[2016-02-24] MEDS: NITROGLYCERIN 2% OINT 1 GM PACKET TOPICAL SCH (05:19)
[2016-02-24] MEDS: LEVOTHYROXINE SODIUM 125 MCG TAB PO SCH (05:20)
[2016-02-24] MEDS: INSULIN ASPART SUPPLEMENTAL SCALE SQ SCH (06:48)
--- NOTE | 2016-02-24 08:12 | HHI.PR ---
Subjective Remarks want to go home. Objective Vitals heart reg lung cta abd s. nt ext no edema Vital Signs Date Time Temp Pulse Resp B/P Pulse Ox O2 Delivery O2 Flow Rate FiO2 02/24/16 06:00 88 02/24/16 05:00 78 02/24/16 04:00 77 02/24/16 04:00 98.0 80 18 146/66 98 02/24/16 03:00 77 02/24/16 02:00 79 02/24/16 01:00 77 02/24/16 00:00 98.0 74 18 136/74 98 02/24/16 00:00 74 02/23/16 23:00 80 02/23/16 22:00 80 02/23/16 21:00 99 02/23/16 20:00 88 02/23/16 20:00 97.8 88 18 154/71 97 02/23/16 19:00 95 02/23/16 18:30 83 154/71 02/23/16 17:30 92 153/79 02/23/16 17:00 90 151/79 02/23/16 17:00 88 02/23/16 16:30 86 145/73 02/23/16 16:00 85 152/71 02/23/16 16:00 78 02/23/16 15:30 84 148/69 02/23/16 15:00 83 02/23/16 15:00 86 140/65 02/23/16 14:30 82 142/63 02/23/16 14:15 85 140/69 02/23/16 14:00 79 02/23/16 14:00 80 132/65 02/23/16 13:50 83 138/67 02/23/16 13:20 158/58 02/23/16 13:00 79 02/23/16 12:00 76 02/23/16 11:00 71 02/23/16 10:00 69 02/23/16 09:00 80 02/23/16 02/23/16 02/24/16 15:00 23:00 07:00 Intake Total 460 ml Balance 460 ml Intake Oral 460 ml # Voids 2 # Bowel Movements 1 Result Diagram: 02/24/1631302/24/16313 Imaging Last Impressions Myocardial Perfusion Scan Nuc Med 02/21/16 06 Signed Impressions: Service Date/Time: Sunday, February 21, 2016 10:10 - CONCLUSION: Redistribution consistent with stress-induced ischemia. Depressed ejection fraction 34%%. RISK CATEGORY: Intermediate (1-3%% Annual Mortality Rate) Noel Downs MD FACR Lower Extremity Ultrasound 02/19/162054 Signed Impressions: Service Date/Time: Friday, February 19, 2016 21:59 - CONCLUSION: Normal examination. Jorge Avila MD Chest X-Ray 02/19/161949 Signed Impressions: Service Date/Time: Friday, February 19, 2016 20:26 - CONCLUSION: 1. Subsegmental airspace disease at the lung bases. No pneumothorax. Jorge Avila MD CT Angiography 02/19/16 0000 Signed Impressions: Service Date/Time: Friday, February 19, 2016 21:48 - CONCLUSION: 1. Negative for pulmonary embolic disease. 2. 12 mm nodule right lower lobe medially is stable in size and appearance since October 2015. However, this is increased in size since 2013. Finding is suspicious for a slow-growing malignancy. Further evaluation with PET CT recommended if this has not been performed. 3. Small bilateral pleural effusions. Scattered atelectasis and scarring in the lungs. Jorge Avila MD A/P Problem List: (1) Congestive heart failure Status: Acute Plan: Presents with new onset systolic chf. echo ef 40% positive stress test for ischemia. cad of rca and ramus intermedius bms ramus intermedius d/c home asa/plavix lasix arb/bb f/u cardiology discussed with pcp and oncologist (2) CAD (coronary artery disease) Status: Acute Plan: see above (3) Type 2 diabetes mellitus Status: Chronic Plan: cont amaryl hold metformin ssi (4) HTN (hypertension) Status: Chronic Plan: cont current meds. (5) Chronic myelogenous leukemia Status: Chronic Plan: On tasigna,will call Dr Correa prior to d/c (6) Hyperlipidemia Status: Chronic Plan: cont pravastatin (7) Lung nodule Status: Chronic Plan: stable from oct 2015. 12mm right lung followed by oncology Problem Qualifiers (1) Congestive heart failure: Qualified Code: I50.21 - Acute systolic congestive heart failure (2) HTN (hypertension): Qualified Code: I10 - Essential hypertension Aguilar Garza MD Feb 24, 2016 08:12
[2016-02-24] MEDS ORDERED: METO25TA3 PO (08:20)
[2016-02-24] MEDS ORDERED: PLAV75TA29 PO (08:20)
[2016-02-24] MEDS ORDERED: METF1000 PO (08:20)
[2016-02-24] MEDS ORDERED: FURO20TA PO (08:20)
[2016-02-24] MEDS ORDERED: POTA20TA5 PO (08:20)
[2016-02-24] MEDS ORDERED: AMAR2TAB PO (08:21)
[2016-02-24] MEDS ORDERED: AMAR4TAB PO (08:21)
--- NOTE | 2016-02-24 08:22 | HHI.DCPOC ---
Discharge Care Plan Diagnosis: (1) CAD (coronary artery disease) (2) Congestive heart failure (3) Chronic myelogenous leukemia (4) Lung nodule (5) Type 2 diabetes mellitus (6) HTN (hypertension) (7) Hyperlipidemia Goals to Promote Your Health * To prevent worsening of your condition and complications * To maintain your health at the optimal level Directions to Meet Your Goals Take your medications as prescribed Follow your dietary instruction Follow activity as directed Keep your appointments as scheduled Take your immunizations and boosters as scheduled If your symptoms worsen call your PCP, if no PCP go to Urgent Care Center or Emergency Room Smoking is Dangerous to Your Health. Avoid second hand smoke Call the 24-hour hour crisis hotline for domestic abuse at Aguilar Garza MD Feb 24, 2016 08:22
[2016-02-24] MEDS ORDERED: CLOPIDOGREL 75 MG TAB PO SCH (09:00)
[2016-02-24] MEDS: SODIUM CHLORIDE 0.9% FLUSH 5 ML FLUSH IVF SCH (09:25)
[2016-02-24] MEDS: POTASSIUM CHLORIDE 20 MEQ CONTROLLED RELEASE TAB PO SCH (09:25)
[2016-02-24] MEDS: FUROSEMIDE 20 MG TAB PO SCH (09:26)
[2016-02-24] MEDS: ASPIRIN EC 81 MG TABEC PO SCH (09:26)
[2016-02-24] MEDS: LOSARTAN 50 MG TAB PO SCH (09:26)
[2016-02-24] MEDS: METOPROLOL TARTRATE 25 MG TAB PO SCH (09:26)
--- NOTE | 2016-03-14 09:07 | HHI.DS ---
Discharge Summary Admission Date Feb 21, 2016 at 13:00 Discharge Date: Feb 24, 2016 Admitting Diagnosis dyspnea-new onset chf; palpitations (1) Congestive heart failure Diagnosis: Principal (2) CAD (coronary artery disease) Diagnosis: Secondary (3) Type 2 diabetes mellitus Diagnosis: Secondary (4) HTN (hypertension) Diagnosis: Secondary (5) Chronic myelogenous leukemia Diagnosis: Secondary (6) Hyperlipidemia Diagnosis: Secondary (7) Lung nodule Diagnosis: Secondary Hospital Course Presents with new onset systolic chf. echo ef 40%..positive stress test for ischemia. cad of rca and ramus intermedius bms ramus intermedius d/c home with asa/plavix lasix,arb/bb f/u cardiology discussed with pcp and oncologist Pt Condition on Discharge: Stable Discharge Disposition: Discharge Home Discharge Instructions DIET: Follow Instructions for: Diabetic Diet Activities you can perform: Regular-No Restrictions Follow up Referrals: Cardiology - [address] perry PCP Follow-up - [address] ayon New Medications: Clopidogrel (Plavix) 75 Mg Tab 75 MG PO DAILY cad #30 Ref 6 TAB Furosemide (Furosemide) 20 Mg Tab 20 MG PO DAILY chf #30 Ref 6 TAB Metoprolol Tartrate (Metoprolol Tartrate) 25 Mg Tab 25 MG PO Q12HR cad #60 Ref 6 TAB Potassium Chloride Microencaps (Potassium Chloride Microencaps) 20 Meq Tab 20 MEQ PO DAILY supplement #30 TAB Changed Medications: Metformin (Metformin) 1,000 Mg Tab 1000 MG PO BIDPC resume on 02/26/16 Blood Sugar Management #0 Ref 0 TAB (Changed from: 60; With meals) Continued Medications: Amitriptyline (Amitriptyline) 10 Mg Tab 10 MG PO HS FOOT CRAMPS TAB Aspirin (Aspirin) 81 Mg Tabdr 81 MG PO DAILY HX TIA TAB Glimepiride (Amaryl) 2 Mg Tab 2 MG PO HS Take with breakfast or first main meal Blood Sugar Management #30 Ref 0 TAB Glimepiride (Amaryl) 4 Mg Tab 4 MG PO DAILY Take with breakfast or first main meal Blood Sugar Management #30 Ref 0 TAB Levothyroxine (Levothyroxine) 125 Mcg Tab 125 MCG PO DAILY Thyroid #30 Ref 0 TAB Lorazepam (Lorazepam) 1 Mg Tab 1 MG PO HS PRN ANXIETY AND/OR INSOMNIA Ref 0 TAB Losartan (Losartan) 50 Mg Tab 50 MG PO Q12HR Blood Pressure Management #30 Ref 0 TAB Nilotinib (Tasigna) 150 Mg Cap 150 MG PO Q12H Take on empty stomach Chemotherapy Management Ref 0 CAP Pravastatin (Pravastatin) 80 Mg Tab 80 MG PO HS Cholesterol Management #30 Ref 0 TAB Aguilar Garza MD Mar 14, 2016 09:07
== END 2016-02-24 11:24 | disposition home or self-care (01) | DRG 249 ==
LOC: PHED 18:59 → PHEDA 23:38 → PH3B 02-20 02:32 → OBSVTOIN 02-21 13:00 → HCIS 02-22 17:29
PROVIDERS: ADMIT Hospitalist; ATTEND Hospitalist
PROC: 4A023N7 Measurement of Cardiac Sampling and Pressure, Left Heart, Percutaneous Approach (ICD-10-PCS; 2016-02-23)
PROC: B2111ZZ Fluoroscopy of Multiple Coronary Arteries using Low Osmolar Contrast (ICD-10-PCS; 2016-02-23)
PROC: B2151ZZ Fluoroscopy of Left Heart using Low Osmolar Contrast (ICD-10-PCS; 2016-02-23)
PROC: 02703DZ Dilation of Coronary Artery, One Artery with Intraluminal Device, Percutaneous Approach (ICD-10-PCS; principal; 2016-02-23 12:15)
DX: I50.21 Acute systolic (congestive) heart failure (principal); C92.10 Chronic myeloid leukemia, BCR/ABL-positive, not having achieved remission; G62.9 Polyneuropathy, unspecified; I25.10 Atherosclerotic heart disease of native coronary artery without angina pectoris; E11.9 Type 2 diabetes mellitus without complications; I10 Essential (primary) hypertension; E78.5 Hyperlipidemia, unspecified; R91.1 Solitary pulmonary nodule; E03.9 Hypothyroidism, unspecified; I35.0 Nonrheumatic aortic (valve) stenosis; M19.90 Unspecified osteoarthritis, unspecified site; K21.9 Gastro-esophageal reflux disease without esophagitis; E78.00 Pure hypercholesterolemia, unspecified; Z85.3 Personal history of malignant neoplasm of breast; Z87.891 Personal history of nicotine dependence; Z86.73 Personal history of transient ischemic attack (TIA), and cerebral infarction without residual deficits
CPT/HCPCS: 71020; 71275; 78452; 80048; 80053; 80061; 81001; 82550; 82948; 83735; 83880; 84443; 84484; 85025; 85347; 85610; 85730; 92928; 93005; 93017; 93306; 93454; 93970; 96374; A9502; C1725; C1769; C1876; C1887; C1893; G0378; J1644; J1650; J1815; J1940; J2250; J2785; Q9967

== ENCOUNTER → 2016-06-01 | Day surgery (SDC) | payer MEDICARE ==
[~2016-06-01] MED LIST changes: +AMAR2TAB PO; +AMAR4TAB PO; +AMIT10TA6 PO; +ASPI1TAB69 PO; -ASPI81TA82 PO; -CIPR500T4 PO; -CLOP75 PO; +FURO20TA PO; -GEMF600 PO; -GLIM2 PO; +LACTATED RINGER'S 1000 ML INJ 1,000 ML ONE; +LEVO125T4 PO; +LORA1TAB12 PO; -LOSA50 PO; +LOSA50TA PO; +METF1000 PO; -METF500 PO; +METO25TA3 PO; +PLAV75TA29 PO; +POTA20TA5 PO; -PRAV80 PO; +PRAV80TA2 PO; +PROPOFOL 200 MG/20 ML AMP IV ONE; -SYNT137T PO; -TASI150C OR; +TASI150C PO
--- NOTE | 2016-06-01 10:19 | GIPROC ---
[facility] [place] [address], [address] COLONOSCOPY PROCEDURE REPORT EXAM DATE: 06/01/2016 PATIENT NAME: Hetal Limon MR #: [id number] BIRTHDATE: 1930 ENDOSCOPIST: Bebeto Snow MD ORDER #: [id number] [employer] COMMANDER: Solange Waters RN STATUS: outpatient INDICATIONS: The patient is a 86 yr old female here for a colonoscopy due to occult blood PROCEDURE PERFORMED: Colonoscopy, diagnostic MEDICATIONS: None and Per Anesthesia. PREP QUALITY: fair ESTIMATED BLOOD LOSS: None CONSENT: The patient understands the risks and benefits of the procedure and understands that these risks include, but are not limited to: sedation, allergic reaction, infection, perforation and/or bleeding. Alternative means of evaluation and treatment include, among others: physical exam, x-rays, and/or surgical intervention. The patient elects to proceed with this endoscopic procedure. medical equipment was checked for proper function. Hand hygiene and appropriate measures for infection prevention was taken. After the risks, benefits and alternatives of the procedure were thoroughly explained, Informed consent was verified, confirmed and timeout was successfully executed by the treatment team. A digital exam revealed no abnormalities of the rectum The EC-[id number] ([id number]) endoscope was introduced through the anus and advanced to the cecum, which was identified by both the appendix and ileocecal valve. The instrument was then slowly withdrawn as the colon was fully examined. COLON FINDINGS: Severe diverticulosis was noted throughout the entire examined colon. The colon mucosa was otherwise normal. Retroflexed views revealed no abnormalities The scope was then completely withdrawn from the patient and the procedure terminated. PROCEDURE WITHDRAWAL TIME:12.6minutes ADVERSE EVENTS: There were no complications. IMPRESSIONS: 1. Severe diverticulosis was noted throughout the entire examined colon 2. The colon mucosa was otherwise normal 3. Retroflexed views revealed no abnormalities 4. Revealed no abnormalities of the rectum RECOMMENDATIONS: 1. High fiber diet. Avoid nuts, seeds, and popcorn. Chew your food well. 2. Yearly hemoccult 3. Follow-up: GI Clinic 4 week(s) RECALL: Return 5 years Colonoscopy Bebeto Snow MD eSigned: Bebeto Snow MD 06/01/2016 10:19 AM cc: Richy Meza M.D and John Zapata [facility]
== END | disposition home or self-care (01) ==
LOC: ESDC 08:19
PROVIDERS: ATTEND Internal Medicine Gastroenterology
DX: K92.1 Melena (principal); K57.91 Diverticulosis of intestine, part unspecified, without perforation or abscess with bleeding; K29.70 Gastritis, unspecified, without bleeding
CPT/HCPCS: 00740; 00810; 43239; 45378; 88305; 88312; J3010; J7120

== ENCOUNTER 2016-09-18 10:08 | Emergency (ER) | payer MEDICARE ==
[~2016-09-18] VITALS: Ht 160 cm; Wt 80.5 kg
[~2016-09-18 10:08] MED LIST changes: -LACTATED RINGER'S 1000 ML INJ 1,000 ML ONE; -PROPOFOL 200 MG/20 ML AMP IV ONE
[2016-09-18 10:16] VITALS: BP 189/82; PULSE 82; RESP 20; TEMP 98.2; O2SAT 94
[2016-09-18] MEDS ORDERED: SODIUM CHLORIDE 0.9% FLUSH 10 ML FLUSH IV FLUSH PRN (11:15)
[2016-09-18] MEDS ORDERED: ONDANSETRON HCL 4 MG/2 ML VIAL IVP ONE (11:15)
[2016-09-18] MEDS ORDERED: KETOROLAC TROMETHAMINE 30 MG/ML (IVP) VIAL IVP ONE (11:15)
[2016-09-18] MEDS ORDERED: MORPHINE SULFATE 4 MG/ML INJ IV PUSH ONE (11:15)
--- NOTE | 2016-09-18 11:15 | PD ---
HPI Chief Complaint: Pain: Acute or Chronic Time Seen by Provider: 10:53 Travel History International Travel<30 days: No Contact w/Intl Traveler<30days: No Traveled to known affect area: No History of Present Illness HPI The patient is a 86-year-old female who presents emergency department for back pain that radiates to left hip and the left groin. The patient states the pain started over 1 week ago, has been constant, minimally alleviated with [place], and slightly worse with certain positions and movements. The patient was seen by her primary physician, Dr. Meza, who ordered an outpatient CT of the abdomen and pelvis with IV contrast which was essentially unremarkable. The pain starts in the left lower aspect of the back radiates around the left flank, past left hip and into the left groin. She does have a history of chronic urinary tract infections and incontinence and has a follow-up appointment with a urologist tomorrow. The patient does have a previous history of back surgery that was performed by Dr. Isbell. She denies any acute weakness or numbness to lower extremities, but does have a history of previous weakness to the left lower extremity. She does complain of mild constipation since Monday, possibly secondary to taking hydrocodone. She also complains of mild abdominal distention since Monday. She denies any nausea or vomiting. Symptoms are moderate but no acute alleviating or exacerbating factors. PFSH Past Medical History Hx Anticoagulant Therapy: No Anemia: Yes Arthritis: Yes Asthma: No Blood Disorders: No Anxiety: No Depression: No Heart Rhythm Problems: No Cancer: Yes (CML, RIGHT BREAST) Cardiac Catheterization: Yes (NEGATIVE IN THE ) Cardiovascular Problems: Yes (heart stent in Feb 2016) High Cholesterol: Yes Chemotherapy: Yes (for leukemia ) Chest Pain: Yes (OCC) Congestive Heart Failure: Yes COPD: No Cerebrovascular Accident: Yes (TIA X2) Diabetes: Yes Diminished Hearing: No Endocrine: Yes Gastrointestinal Disorders: No GERD: Yes Genitourinary: Yes (Bladder prolapse, FIBROID TUMORS) Headaches: Yes Hepatitis: No Hiatal Hernia: No Hypertension: Yes Immune Disorder: No Implanted Vascular Access Dvce: No Kidney Stones: No Musculoskeletal: Yes (BACK, HIP) Neurologic: No Psychiatric: No Reproductive: No Respiratory: Yes Migraines: No Radiation Therapy: No Renal Failure: No Seizures: No Shingles: Yes Sleep Apnea: No Thyroid Disease: Yes Ulcer: No Menopausal: Yes : 2 Para: 2 Tubal Ligation: Yes Past Surgical History Abdominal Surgery: Yes AICD: No Appendectomy: Yes Arteriovenous Shunt: No Cardiac Surgery: No Section: Yes (X1) Cholecystectomy: Yes Ear Surgery: No Endocrine Surgery: No Eye Surgery: Yes (cataract RIGHT EYE) Genitourinary Surgery: Yes ("2009,bladder surgery,prolapse") Gynecologic Surgery: Yes (PARTIAL HYSTERECTOMY, C SECTION) Hysterectomy: Yes (PARTIAL) Insulin Pump: No Joint Replacement: No Mastectomy: Yes (RIGHT BREAST BIOPSY ONLY) Neurologic Surgery: No Oral Surgery: No Pacemaker: No Thoracic Surgery: No Other Surgery: Yes ("blocked tear duct,left side") Social History Alcohol Use: Yes ("GLASS OF WINE VERY RARELY") Tobacco Use: No (QUIT IN ) Substance Use: No Allergies-Medications (Allergen,Severity, Reaction): Coded Allergies: Sulfa (Verified Allergy, Severe, "face swells", 09/18/16) Codeine (Verified Adverse Reaction, Severe, "heart races", 09/18/16) Reported Meds & Prescriptions Reported Meds & Active Scripts Active Potassium Chloride Microencaps 20 Meq Tab 20 Meq PO DAILY Metoprolol Tartrate 25 Mg Tab 25 Mg PO Q12HR Metformin (Metformin HCl) 1,000 Mg Tab 1,000 Mg PO BIDPC resume on 02/26/16 Reported Vitamin B-12 (Cyanocobalamin) 500 Mcg Tab 500 Mcg PO DAILY Tizanidine (Tizanidine HCl) 4 Mg Cap 4 Mg PO HS Hydrocodone-Acetaminophen 5-325 mg Tab 1 Tab PO Q8HR PRN Furosemide 40 Mg Tab 40 Mg PO DIRECTED Calcium 500 +D (Calcium Carbonate-Cholecalciferol) 500-400 Mg-Unit Tab 2 Tab PO DAILY Atorvastatin (Atorvastatin Calcium) 80 Mg Tab 80 Mg PO HS Amaryl (Glimepiride) 4 Mg Tab 4 Mg PO DAILY Take with breakfast or first main meal Amaryl (Glimepiride) 2 Mg Tab 2 Mg PO HS Take with breakfast or first main meal Lorazepam 1 Mg Tab 1 Mg PO HS PRN Amitriptyline (Amitriptyline HCl) 10 Mg Tab 10 Mg PO HS Tasigna (Nilotinib) 150 Mg Cap 150 Mg PO Q12H Take on empty stomach Losartan (Losartan Potassium) 50 Mg Tab 50 Mg PO Q12HR Levothyroxine (Levothyroxine Sodium) 125 Mcg Tab 125 Mcg PO DAILY Review of Systems Except as stated in HPI: all other systems reviewed are Neg Cardiovascular: No: Chest Pain or Discomfort Respiratory: No: Shortness of Breath Gastrointestinal: Positive: Abdominal Pain (distention), Constipation, No: Nausea, Vomiting Genitourinary: Positive: Incontinence, Other (has an appointment tomorrow with a urologist in regards to incontinence and recurrent UTIs) Musculoskeletal: Positive: Weakness (chronic left leg weakness), Pain Neurologic: No: Paresthesia, Sensory Disturbance Physical Exam Narrative GENERAL: Awake, alert, pleasant 86-year-old female appears her stated age and appears in moderate discomfort. SKIN: Focused skin assessment warm/dry. No stigmata of shingles over the left flank. HEAD: Atraumatic. Normocephalic. EYES: No injection or drainage. ENT: No nasal bleeding or discharge. Mucous membranes pink and moist. NECK: Trachea midline. No JVD. CARDIOVASCULAR: Regular rate and rhythm. No murmur appreciated. RESPIRATORY: No accessory muscle use. Clear to auscultation. Breath sounds equal bilaterally. GASTROINTESTINAL: Abdomen soft, no tenderness, minimal distention, well-healed midline surgical scar. Back: Well-healed midline lower lumbar scar. Tenderness over the left sacroiliac. MUSCULOSKELETAL: No obvious deformities. No clubbing. No cyanosis. No edema. Patient is able flex her hip to 90. NEUROLOGICAL: Awake and alert. No obvious cranial nerve deficits. Motor grossly within normal limits. Normal speech. Nonfocal. PSYCHIATRIC: Appropriate mood and affect; insight and judgment normal. Data Data Last Documented VS Vital Signs Date Time Temp Pulse Resp B/P Pulse Ox O2 Delivery O2 Flow Rate FiO2 09/18/16 12:04 75 20 125/67 98 Room Air 09/18/16 10:16 98.2 Orders Complete Blood Count With Diff (09/18/16 11:05) Comprehensive Metabolic Panel (09/18/16 11:05) Lipase (09/18/16 11:05) Lactic Acid (09/18/16 11:05) Urinalysis - C+S If Indicated (09/18/16 11:05) Ct Abd/Pel W/O Iv Contrast (09/18/16 11:05) Iv Access Insert/Monitor (09/18/16 11:05) Ecg Monitoring (09/18/16 11:05) Oximetry (09/18/16 11:05) Morphine Inj (Morphine Inj) (09/18/16 11:15) Ondansetron Inj (Zofran Inj) (09/18/16 11:15) Sodium Chloride 0.9% Flush (Ns Flush) (09/18/16 11:15) Ketorolac Inj (Toradol Inj) (09/18/16 11:15) Labs Laboratory Tests Test 09/18/16 09/18/16 11:15 12:00 White Blood Count 10.7 TH/MM3 Red Blood Count 3.95 MIL/MM3 Hemoglobin 11.5 GM/DL Hematocrit 34.8 % Mean Corpuscular Volume 88.1 FL Mean Corpuscular Hemoglobin 29.0 PG Mean Corpuscular Hemoglobin 33.0 % Concent Red Cell Distribution Width 17.8 % Platelet Count 275 TH/MM3 Mean Platelet Volume 9.7 FL Neutrophils (%) (Auto) 82.9 % Lymphocytes (%) (Auto) 9.7 % Monocytes (%) (Auto) 4.3 % Eosinophils (%) (Auto) 0.3 % Basophils (%) (Auto) 2.8 % Neutrophils # (Auto) 8.9 TH/MM3 Lymphocytes # (Auto) 1.0 TH/MM3 Monocytes # (Auto) 0.5 TH/MM3 Eosinophils # (Auto) 0.0 TH/MM3 Basophils # (Auto) 0.3 TH/MM3 CBC Comment DIFF FINAL Differential Comment Sodium Level 132 MEQ/L Potassium Level 4.6 MEQ/L Chloride Level 96 MEQ/L Carbon Dioxide Level 25.9 MEQ/L Anion Gap 10 MEQ/L Blood Urea Nitrogen 10 MG/DL Creatinine 0.74 MG/DL Estimat Glomerular Filtration 74 ML/MIN Rate Random Glucose 271 MG/DL Lactic Acid Level 1.9 mmol/L Calcium Level 9.4 MG/DL Total Bilirubin 0.9 MG/DL Aspartate Amino Transf 37 U/L (AST/SGOT) Alanine Aminotransferase 47 U/L (ALT/SGPT) Alkaline Phosphatase 104 U/L Total Protein 7.7 GM/DL Albumin 4.0 GM/DL Lipase 126 U/L Urine Collection Type CLEAN CATCH Urine Color DARK-YELLOW Urine Turbidity CLEAR Urine pH 7.0 Urine Specific [place] 1.017 Urine Protein TRACE mg/dL Urine Glucose (UA) 100 mg/dL Urine Ketones TRACE mg/dL Urine Occult Blood NEG Urine Nitrite NEG Urine Bilirubin NEG Urine Leukocyte Esterase TRACE Urine RBC 0-3 /hpf Urine WBC 0-2 /hpf Urine Squamous Epithelial 0-5 /hpf Cells Microscopic Urinalysis Comment CULT NOT INDICATED MDM Medical Decision Making Medical Screen Exam Complete: Yes Emergency Medical Condition: Yes Medical Record Reviewed: Yes Interpretation(s) I reviewed the patient's CT of the abdomen and pelvis with IV contrast was performed on September 13, 2016. The liver appears inhomogeneous of indeterminate nonspecific etiology. There is surgical absence of gallbladder. Small amount of free fluid in the pelvis and area in the right upper quadrant of indeterminate etiology. Stable right hepatic cyst and 1 cm right lower lobe pulmonary soft tissue nodules. Last Impressions Abdomen/Pelvis CT 09/18/16 1105 Signed Impressions: Service Date/Time: Sunday, September 18, 2016 11:27 - CONCLUSION: 1. No acute finding is identified to explain the clinical symptoms. No renal stone or signs of urinary obstruction are present. 2. There are very small bilateral pleural effusions along with a small volume of free fluid in the abdomen and pelvis from uncertain etiology. Mild anasarca. 3. Other nonacute findings include severe atherosclerotic disease, 2.2 cm right hepatic cyst, and sigmoid diverticulosis. Tru Walker MD Laboratory Tests Test 09/18/16 09/18/16 11:15 12:00 White Blood Count 10.7 TH/MM3 Red Blood Count 3.95 MIL/MM3 Hemoglobin 11.5 GM/DL Hematocrit 34.8 % Mean Corpuscular Volume 88.1 FL Mean Corpuscular Hemoglobin 29.0 PG Mean Corpuscular Hemoglobin 33.0 % Concent Red Cell Distribution Width 17.8 % Platelet Count 275 TH/MM3 Mean Platelet Volume 9.7 FL Neutrophils (%) (Auto) 82.9 % Lymphocytes (%) (Auto) 9.7 % Monocytes (%) (Auto) 4.3 % Eosinophils (%) (Auto) 0.3 % Basophils (%) (Auto) 2.8 % Neutrophils # (Auto) 8.9 TH/MM3 Lymphocytes # (Auto) 1.0 TH/MM3 Monocytes # (Auto) 0.5 TH/MM3 Eosinophils # (Auto) 0.0 TH/MM3 Basophils # (Auto) 0.3 TH/MM3 CBC Comment DIFF FINAL Differential Comment Sodium Level 132 MEQ/L Potassium Level 4.6 MEQ/L Chloride Level 96 MEQ/L Carbon Dioxide Level 25.9 MEQ/L Anion Gap 10 MEQ/L Blood Urea Nitrogen 10 MG/DL Creatinine 0.74 MG/DL Estimat Glomerular Filtration 74 ML/MIN Rate Random Glucose 271 MG/DL Lactic Acid Level 1.9 mmol/L Calcium Level 9.4 MG/DL Total Bilirubin 0.9 MG/DL Aspartate Amino Transf 37 U/L (AST/SGOT) Alanine Aminotransferase 47 U/L (ALT/SGPT) Alkaline Phosphatase 104 U/L Total Protein 7.7 GM/DL Albumin 4.0 GM/DL Lipase 126 U/L Urine Collection Type CLEAN CATCH Urine Color DARK-YELLOW Urine Turbidity CLEAR Urine pH 7.0 Urine Specific [place] 1.017 Urine Protein TRACE mg/dL Urine Glucose (UA) 100 mg/dL Urine Ketones TRACE mg/dL Urine Occult Blood NEG Urine Nitrite NEG Urine Bilirubin NEG Urine Leukocyte Esterase TRACE Urine RBC 0-3 /hpf Urine WBC 0-2 /hpf Urine Squamous Epithelial 0-5 /hpf Cells Microscopic Urinalysis Comment CULT NOT INDICATED Differential Diagnosis Doses includes back pain with radiculopathy, hydronephrosis, nephrolithiasis, pyelonephritis, diverticulitis, partial small bowel obstruction, shingles. Narrative Course IV was established, labs are drawn and sent, and the patient was placed on cardiac telemetry monitoring and continuous pulse oximetry monitoring. I reviewed the patient's outpatient CT of the abdomen and pelvis with IV contrast performed on September 13, 2016. Repeat noncontrast CT the abdomen and pelvis was performed to evaluate for nephrolithiasis and/or developing partial small bowel obstruction. The patient was administered morphine, Zofran, and monitored in the emergency department. UA was sent to lab. White count is unremarkable. UA was negative. Lactic acid is within normal limits. CT reveals anasarca but no acute findings. The patient appears to have radiculopathy type pain/ neuropathy type pain that is radiating from the left sacroiliac around the left hip and into the left groin. The patient is had previous back surgery and has undergone epidural steroid injections in the past. She is advised to follow-up with her primary physician, Dr. Meza, for outpatient referral to see pain interventional list to see if epidural steroid injections in her Kenalog injections would be of any benefit. The patient agrees and understands. She will be provided a copy of her labs and CT results at discharge. Diagnosis Primary Impression: Back pain with left-sided radiculopathy Patient Instructions: General Instructions Additional Instructions: Please provide the patient a copy of her CT results and lab results at discharge. Follow-up with your primary physician. You may benefit from outpatient follow-up with pain interventional for steroid injections. Return if symptoms worsen or progress. Med/Other Pt SpecificInfo: No Change to Meds Disposition: 01 DISCHARGE HOME Condition: Stable Philip Morales MD Sep 18, 2016 11:15
[2016-09-18 11:35] LABS: AUTOMATED NEUTROPHIL # 8.9 TH/MM3 (1.8-7.7); BASOPHIL # 0.3 TH/MM3 (0-0.2); BASOPHIL % 2.8 % (0.0-2.0); EOSINOPHIL % 0.3 % (0.0-4.0); HEMATOCRIT 34.8 % (35.0-46.0); LYMPH % 9.7 % (9.0-44.0); MEAN CELL VOLUME 88.1 FL (80.0-100.0); MONO % 4.3 % (0.0-8.0); NEUT % 82.9 % (16.0-70.0); PLATELET COUNT 275 TH/MM3 (150-450); RED BLOOD COUNT 3.95 MIL/MM3 (4.00-5.30); RED CELL DISTRIBUTION WIDTH 17.8 % (11.6-17.2); WHITE BLOOD COUNT 10.7 TH/MM3 (4.0-11.0)
[2016-09-18 11:38] LABS: HEMO FLAGS DIFF FINAL
[2016-09-18 11:47] LABS: CHLORIDE 96 MEQ/L (98-107); POTASSIUM 4.6 MEQ/L (3.5-5.1); SODIUM (NA) 132 MEQ/L (136-145)
[2016-09-18 11:51] LABS: ANION GAP 10 MEQ/L (5-15); BICARBONATE 25.9 MEQ/L (21.0-32.0); BLOOD UREA NITROGEN 10 MG/DL (7-18)
[2016-09-18 11:54] LABS: ALT (GPT) 47 U/L (10-53); AST (GOT) 37 U/L (15-37); GLOMERULAR FILTRATION RATE 74 ML/MIN (>89)
[2016-09-18 11:55] LABS: TOTAL BILIRUBIN ADULT 0.9 MG/DL (0.2-1.0)
--- NOTE | 2016-09-18 11:55 | RADRPT ---
EXAM DATE/TIME: 09/18/2016 11:27 [facility] COMPARISON: No previous studies available for comparison. INDICATIONS : Left flank pain radiating to inguinal area. ORAL CONTRAST: No oral contrast ingested. RADIATION DOSE: 24.46 CTDIvol (mGy) MEDICAL HISTORY : Cardiovascular disease. Cerebrovascular disease. Hypertension. SURGICAL HISTORY : Coronary artery stent. Cholecystectomy.Hysterectomy.Bladder prolapse surgery. ENCOUNTER: Initial ACUITY: 1 week PAIN SCALE: 8/10 LOCATION: Left flank TECHNIQUE: Volumetric scanning of the abdomen and pelvis was performed. Using automated exposure control and ad justment of the mA and/or kV according to patient size, radiation dose was kept as low as reasonably achievable to obtain optimal diagnostic quality images. DICOM format image data is available electro nically for review and comparison. FINDINGS: LOWER LUNGS: Very small bilateral pleural effusions. LIVER: Homogeneous density without a concerning abnormality. There is a partially visualized 2.2 cm right he patic cyst. Scattered punctate calcifications are present. There is no dilation of the biliary tree. Gallbladder is not visualized. SPLEEN: Normal size without lesion. PANCREAS: No acute abnormality is appreciated. KIDNEYS: Normal in size and shape. There is no mass, stone, or hydronephrosis. ADRENAL GLANDS: Within normal limits. VASCULAR: There is no aortic aneurysm. There is severe atherosclerotic disease. BOWEL/MESENTERY: Stomach and small bowel demonstrate no acute finding. There is sigmoid diverticulosis. A duodenal div erticulum is present. A small volume of free fluid is present within the abdomen and pelvis. There is no free air. ABDOMINAL WALL: There is mild diffuse subcutaneous edema. RETROPERITONEUM: There is no lymphadenopathy. BLADDER: No wall thickening or mass. REPRODUCTIVE: Uterus is absent. INGUINAL: There is no lymphadenopathy or hernia. MUSCULOSKELETAL: There are degenerative changes of the lumbar spine. CONCLUSION: 1. No acute finding is identified to explain the clinical symptoms. No renal stone or signs of urinar y obstruction are present. 2. There are very small bilateral pleural effusions along with a small volume of free fluid in the ab domen and pelvis from uncertain etiology. Mild anasarca. 3. Other nonacute findings include severe atherosclerotic disease, 2.2 cm right hepatic cyst, and sig moid diverticulosis. Tru Walker MD on September 18, 2016 at 11:48 Board Certified Radiologist. This report was verified electronically.
[2016-09-18 11:57] LABS: ALKALINE PHOSPHATASE 104 U/L (45-117)
[2016-09-18 12:04] VITALS: BP 125/67; PULSE 75; RESP 20; O2SAT 98
[2016-09-18 12:05] LABS: BLOOD, URINE NEG (NEG); GLUCOSE,URINE 100 mg/dL (NEG); KETONE, URINE TRACE mg/dL (NEG); NITRITE,URINE NEG (NEG)
[2016-09-18 12:11] LABS: METHOD OF COLLECTION CLEAN CATCH; URINE COLOR DARK-YELLOW (YELLW/STRAW)
[2016-09-18 12:12] LABS: COMMENT (UR) CULT NOT INDICATED; CULTURE IF INDICATED CULT NOT INDICATED; RBC, URINE 0-3 /hpf (0-3); SQUAMOUS EPITHELIAL CELL URINE 0-5 /hpf (0-5); WBC, URINE 0-2 /hpf (0-5)
[2016-09-18] MEDS ORDERED: ATOR1TAB18 PO (12:18)
[2016-09-18] MEDS ORDERED: HYDR-3516 PO (12:18)
[2016-09-18] MEDS ORDERED: FURO40TA PO (12:18)
[2016-09-18] MEDS ORDERED: CALC1TAB12 PO (12:18)
[2016-09-18] MEDS ORDERED: VITA500T4 PO (12:18)
[2016-09-18] MEDS ORDERED: TIZA4CAP3 PO (12:18)
[2016-09-18 12:55] VITALS: BP 135/67
== END 2016-09-18 12:58 | disposition home or self-care (01) ==
LOC: PHED 10:08
DX: M54.5 Low back pain (principal); M54.18 Radiculopathy, sacral and sacrococcygeal region
CPT/HCPCS: 74176; 80053; 81001; 83605; 83690; 85025; 96374; 96375; 99285; J1885; J2270; J2405

== ENCOUNTER 2016-10-03 17:00 | Inpatient (IN) | payer MEDICARE ==
[~2016-10-03] VITALS: Ht 160 cm; Wt 81.5 kg
[~2016-10-03 17:00] MED LIST changes: -ASPI1TAB69 PO; +ATOR1TAB18 PO; +CALC1TAB12 PO; -FURO20TA PO; +FURO40TA PO; +HYDR-3516 PO; +IOHEXOL 350 MG/ML 10 ML VIAL (for RAD DIAG) IV PUSH ONE; -PLAV75TA29 PO; -PRAV80TA2 PO; +TIZA4CAP3 PO; +VITA500T4 PO
[2016-10-03 17:10] VITALS: BP 172/76; PULSE 92; RESP 26; O2SAT 100
[2016-10-03 17:25] VITALS: BP 172/76; PULSE 87; RESP 26; TEMP 98.6; O2SAT 99
--- NOTE | 2016-10-03 17:26 | PD ---
HPI Chief Complaint: Respiratory Symptoms Time Seen by Provider: 17:19 Travel History International Travel<30 days: No Contact w/Intl Traveler<30days: No Traveled to known affect area: No History of Present Illness HPI This 86-year-old female complaining of shortness of breath. She has a history of congestive failure and is on diuretics. Her ankles have been swollen. She has orthopnea and dyspnea on minimal exertion. Her symptoms have not improved with a diuretic. In February of this year she had a cardiac catheter and a stent placed by Dr. Andre. She has a history of hypertension and type 2 diabetes. She gets a lot of palpitations at night. She also has a history of chronic myelogenous leukemia and sees Dr. Conklin. She is thought to be in remission. She went to see Dr. Conklin for a routine visit today and he was concerned about her dyspnea and recommended that she come here for evaluation. She denies any chest pain. She does say that she had a blood clot in her lung in the 80s. She does not know what triggered that. PFSH Past Medical History Hx Anticoagulant Therapy: No Anemia: Yes Arthritis: Yes Asthma: No Blood Disorders: No Anxiety: No Depression: No Heart Rhythm Problems: No Cancer: Yes (Leukemia, breast ) Cardiac Catheterization: Yes Cardiovascular Problems: Yes (heart stent in Feb 2016) High Cholesterol: Yes Chemotherapy: Yes Chest Pain: Yes Congestive Heart Failure: Yes COPD: No Cerebrovascular Accident: Yes (TIA X's 2) Diabetes: Yes Patient Takes Glucophage: Yes Diminished Hearing: No Endocrine: Yes Gastrointestinal Disorders: No GERD: Yes Genitourinary: Yes (Bladder prolapse, fibroid ) Headaches: Yes Hepatitis: No Hiatal Hernia: No Hypertension: Yes Immune Disorder: No Implanted Vascular Access Dvce: No Kidney Stones: No Musculoskeletal: Yes (Back, hip) Neurologic: No Psychiatric: No Reproductive: No Respiratory: Yes Migraines: No Radiation Therapy: No Renal Failure: No Seizures: No Shingles: Yes Sleep Apnea: No Thyroid Disease: Yes Ulcer: No Tetanus Vaccination: < 5 Years Influenza Vaccination: Yes ?: Not Menopausal: Yes : 2 Para: 2 Tubal Ligation: Yes Past Surgical History Abdominal Surgery: Yes AICD: No Appendectomy: Yes Arteriovenous Shunt: No Cardiac Surgery: No Section: Yes Cholecystectomy: Yes Coronary Stent: Yes Ear Surgery: No Endocrine Surgery: No Eye Surgery: Yes (Cataract Rt. eye ) Genitourinary Surgery: Yes (Bladder, prolapse ) Gynecologic Surgery: Yes (PARTIAL HYSTERECTOMY, C SECTION) Hysterectomy: Yes (Partial ) Insulin Pump: No Joint Replacement: No Mastectomy: Yes (Rt. breast BX) Neurologic Surgery: No Oral Surgery: No Pacemaker: No Thoracic Surgery: Yes (back) Other Surgery: Yes (blood clot in lung, breast lump removal (CA)) Social History Alcohol Use: No Tobacco Use: No Substance Use: No Allergies-Medications (Allergen,Severity, Reaction): Coded Allergies: Sulfa (Sulfonamide Antibiotics) (Unverified Allergy, Severe, Facial swelling, 10/03/16) codeine (Unverified Adverse Reaction, Severe, Heart races, 10/03/16) Reported Meds & Prescriptions Reported Meds & Active Scripts Active Potassium Chloride Microencaps 20 Meq Tab 20 Meq PO DAILY Metoprolol Tartrate 25 Mg Tab 25 Mg PO Q12HR Metformin (Metformin HCl) 1,000 Mg Tab 1,000 Mg PO BIDPC resume on 02/26/16 Reported Vitamin B-12 (Cyanocobalamin) 500 Mcg Tab 500 Mcg PO DAILY Tizanidine (Tizanidine HCl) 4 Mg Cap 4 Mg PO HS Furosemide 40 Mg Tab 40 Mg PO DAILY Calcium 500 +D (Calcium Carbonate-Cholecalciferol) 500-400 Mg-Unit Tab 2 Tab PO DAILY Atorvastatin (Atorvastatin Calcium) 80 Mg Tab 80 Mg PO HS Amaryl (Glimepiride) 4 Mg Tab 4 Mg PO BID Take with breakfast or first main meal Lorazepam 1 Mg Tab 1 Mg PO HS PRN Amitriptyline (Amitriptyline HCl) 10 Mg Tab 10 Mg PO HS Tasigna (Nilotinib) 150 Mg Cap 150 Mg PO Q12H Take on empty stomach Losartan (Losartan Potassium) 50 Mg Tab 50 Mg PO Q12HR Levothyroxine (Levothyroxine Sodium) 125 Mcg Tab 125 Mcg PO DAILY Review of Systems General / Constitutional: No: Fever, Chills Eyes: No: Diploplia, Blurred Vision HENT: No: Headaches Cardiovascular: Positive: Dyspnea on exertion, Edema, No: Chest Pain or Discomfort, Palpitations Respiratory: Positive: Shortness of Breath, Orthopnea, No: Wheezing, Sneezing, Stridor, Pleuritic Pain Gastrointestinal: No: Nausea, Vomiting Genitourinary: No: Urgency, Frequency Musculoskeletal: No: Myalgias, Arthralgias Skin: No Rash Neurologic: Positive: Weakness Endocrine: No: Heat Intolerance Hematologic/Lymphatic: No: Easy Bruising Physical Exam Narrative GENERAL: Well-developed female. She is in moderate respiratory distress. Her oxygen saturation on arrival is 88% SKIN: Focused skin assessment warm/dry. HEAD: Atraumatic. Normocephalic. EYES: Pupils equal and round. No scleral icterus. No injection or drainage. ENT: No nasal bleeding or discharge. Mucous membranes pink and moist. NECK: Trachea midline. No JVD. CARDIOVASCULAR: Regular rate and rhythm. No murmur appreciated. RESPIRATORY: There is accessory muscle use. She has some bibasilar rales GASTROINTESTINAL: Abdomen soft, non-tender, nondistended. Hepatic and splenic margins not palpable. MUSCULOSKELETAL: No obvious deformities. No clubbing. No cyanosis. Bilateral pedal edema NEUROLOGICAL: Awake and alert. No obvious cranial nerve deficits. Motor grossly within normal limits. Normal speech. PSYCHIATRIC: Appropriate mood and affect; insight and judgment normal. Data Data Last Documented VS Vital Signs Date Time Temp Pulse Resp B/P (MAP) Pulse Ox O2 Delivery O2 Flow Rate FiO2 10/03/16 21:00 82 18 142/63 (89) 99 Nasal Cannula 2.50 10/03/16 17:25 98.6 Orders Orders Electrocardiogram (10/03/16 17:22) Complete Blood Count With Diff (10/03/16 17:22) Comprehensive Metabolic Panel (10/03/16 17:22) Troponin I (10/03/16 17:22) B-Type Natriuretic Peptide (10/03/16 17:22) Prothrombin Time / Inr (Pt) (10/03/16 17:22) Act Partial Throm Time (Ptt) (10/03/16 17:22) Urinalysis - C+S If Indicated (10/03/16 17:22) Magnesium (Mg) (10/03/16 17:22) Thyroid Stimulating Hormone (10/03/16 17:22) Chest, Single Ap (10/03/16 17:22) Furosemide Inj (Lasix Inj) (10/03/16 18:30) Potassium Chloride (Kcl) (10/03/16 18:30) Ct Pulmonary Angiogram (10/03/16 18:31) Amitriptyline (Elavil) (10/03/16 21:00) Cyanocobalamin (Vitamin B12) (10/04/16 09:00) Glimepiride (Amaryl) (10/03/16 21:00) Lorazepam (Ativan) (10/03/16 20:00) Losartan (Cozaar) (10/03/16 21:00) Metformin (Glucophage) (10/04/16 09:00) Metoprolol Tartrate (Lopressor) (10/03/16 21:00) Potassium Chloride (Kcl) (10/04/16 09:00) Tizanidine Hcl (Zanaflex) (10/03/16 21:00) Calcium-Vit D 250-125 Mg (Oscal-D 250-12 (10/04/16 09:00) Patient Own Medication (10/03/16 21:00) Admit To Inpatient (10/03/16 ) Inpatient Certification (10/03/16 ) Atorvastatin (Lipitor) (10/03/16 21:00) Levothyroxine (Synthroid) (10/04/16 06:00) Bedside Glucose ISAIAH.AC&HS (10/03/16 20:18) Blood Glucose Goal (Criteria) (10/03/16 20:18) Hypoglycemia 70 Mg/Dl Or < (10/03/16 20:18) Notify Dr: Other (10/03/16 20:18) Dextrose 50% In Cooper (Vial) Inj (D50w (Vi (10/03/16 20:30) Glucagon Inj (Glucagon Inj) (10/03/16 20:30) Insulin Aspart Supplemtl Scale (Novolog (10/03/16 21:00) Levothyroxine (Synthroid) (10/04/16 06:00) Iohexol 350 Inj (Omnipaque 350 Inj) (10/03/16 16:35) Admit Order (Ed Use Only) (10/03/16 21:01) Labs Laboratory Tests Test 10/03/16 17:45 10/03/16 19:25 White Blood Count 6.9 TH/MM3 Red Blood Count 3.35 MIL/MM3 Hemoglobin 9.5 GM/DL Hematocrit 29.6 % Mean Corpuscular Volume 88.3 FL Mean Corpuscular Hemoglobin 28.4 PG Mean Corpuscular Hemoglobin Concent 32.2 % Red Cell Distribution Width 17.5 % Platelet Count 244 TH/MM3 Mean Platelet Volume 8.7 FL Neutrophils (%) (Auto) 74.6 % Lymphocytes (%) (Auto) 16.2 % Monocytes (%) (Auto) 7.6 % Eosinophils (%) (Auto) 1.2 % Basophils (%) (Auto) 0.4 % Neutrophils # (Auto) 5.2 TH/MM3 Lymphocytes # (Auto) 1.1 TH/MM3 Monocytes # (Auto) 0.5 TH/MM3 Eosinophils # (Auto) 0.1 TH/MM3 Basophils # (Auto) 0.0 TH/MM3 CBC Comment DIFF FINAL Differential Comment Prothrombin Time 11.4 SEC Prothromb Time International Ratio 1.0 RATIO Activated Partial Thromboplast Time 25.3 SEC Blood Urea Nitrogen 15 MG/DL Creatinine 0.70 MG/DL Random Glucose 156 MG/DL Total Protein 7.1 GM/DL Albumin 3.8 GM/DL Calcium Level 8.9 MG/DL Magnesium Level 1.8 MG/DL Alkaline Phosphatase 98 U/L Aspartate Amino Transf (AST/SGOT) 28 U/L Alanine Aminotransferase (ALT/SGPT) 48 U/L Total Bilirubin 0.5 MG/DL Sodium Level 135 MEQ/L Potassium Level 3.6 MEQ/L Chloride Level 100 MEQ/L Carbon Dioxide Level 25.7 MEQ/L Estimat Glomerular Filtration Rate 79 ML/MIN Troponin I 0.02 NG/ML B-Type Natriuretic Peptide 1008 PG/ML Thyroid Stimulating Hormone 3rd Gen 3.110 uIU/ML Urine Color STRAW Urine Turbidity CLEAR Urine pH 7.0 Urine Specific [place] 1.005 Urine Protein NEG mg/dL Urine Glucose (UA) NEG mg/dL Urine Ketones NEG mg/dL Urine Occult Blood NEG Urine Nitrite NEG Urine Bilirubin NEG Urine Leukocyte Esterase NEG Urine RBC 0-3 /hpf Urine WBC 0-2 /hpf Urine Squamous Epithelial Cells 0-5 /hpf Microscopic Urinalysis Comment CULT NOT INDICATED MDM Medical Decision Making Medical Screen Exam Complete: Yes Emergency Medical Condition: Yes Medical Record Reviewed: Yes Differential Diagnosis Differential includes CHF, COPD, pneumonia, anemia Narrative Course She does have a hemoglobin of 9 which is lower than she has been previously. Chest x-rays read as negative clinically she appears to have congestive heart failure. Her BNP is come back elevated at 1000. She has received intravenous Lasix and has had a brisk diuresis with clinical improvement. With supplemental oxygen his saturations are in the high 90s. EKG does not show any acute abnormality. A CTA was done to assess for pulmonary embolus and is negative Diagnosis Primary Impression: Congestive heart failure Qualified Codes: I50.9 - Heart failure, unspecified Additional Impression: Anemia Lane Tapia MD Oct 03, 2016 17:26
--- NOTE | 2016-10-03 17:41 | RADRPT ---
EXAM DATE/TIME: 10/03/2016 17:34 [facility] COMPARISON: CHEST SINGLE AP, November 12, 2015, 8:07. INDICATIONS : Shortness of breath. MEDICAL HISTORY : Hypertension. Gastroesophageal reflux disease. SURGICAL HISTORY : None. ENCOUNTER: Initial ACUITY: 1 day PAIN SCORE: 0/10 LOCATION: Bilateral chest FINDINGS: A single view of the chest demonstrates the lungs to be symmetrically aerated without evidence of mas s, infiltrate or effusion. The cardiomediastinal contours are unremarkable. Osseous structures are intact. CONCLUSION: No acute disease. Jatin aBrrios MD on October 03, 2016 at 17:39 Board Certified Radiologist. This report was verified electronically.
[2016-10-03 17:56] LABS: AUTOMATED NEUTROPHIL # 5.2 TH/MM3 (1.8-7.7); BASOPHIL % 0.4 % (0.0-2.0); EOSINOPHIL # 0.1 TH/MM3 (0-0.4); EOSINOPHIL % 1.2 % (0.0-4.0); HEMATOCRIT 29.6 % (35.0-46.0); HEMO FLAGS DIFF FINAL; LYMPH % 16.2 % (9.0-44.0); LYMPHOCYTE # 1.1 TH/MM3 (1.0-4.8); MEAN CELL VOLUME 88.3 FL (80.0-100.0); MEAN CORPUSCULAR HEMOGLOBIN 28.4 PG (27.0-34.0); MEAN CORPUSCULAR HGB CONC 32.2 % (32.0-36.0); MONO % 7.6 % (0.0-8.0); NEUT % 74.6 % (16.0-70.0); PLATELET COUNT 244 TH/MM3 (150-450); RED BLOOD COUNT 3.35 MIL/MM3 (4.00-5.30); RED CELL DISTRIBUTION WIDTH 17.5 % (11.6-17.2); WHITE BLOOD COUNT 6.9 TH/MM3 (4.0-11.0)
[2016-10-03 18:09] LABS: CHLORIDE 100 MEQ/L (98-107); POTASSIUM 3.6 MEQ/L (3.5-5.1); SODIUM (NA) 135 MEQ/L (136-145)
[2016-10-03 18:12] LABS: ANION GAP 9 MEQ/L (5-15); BICARBONATE 25.7 MEQ/L (21.0-32.0); BLOOD UREA NITROGEN 15 MG/DL (7-18); MAGNESIUM 1.8 MG/DL (1.5-2.5)
[2016-10-03 18:13] LABS: APTT (PATIENT) 25.3 SEC (24.3-30.1); PROTHROMBIN TIME - PATIENT 11.4 SEC (9.8-11.6)
[2016-10-03 18:15] LABS: ALT (GPT) 48 U/L (10-53); AST (GOT) 28 U/L (15-37); GLOMERULAR FILTRATION RATE 79 ML/MIN (>89)
[2016-10-03 18:17] LABS: TOTAL BILIRUBIN ADULT 0.5 MG/DL (0.2-1.0)
[2016-10-03 18:18] LABS: ALKALINE PHOSPHATASE 98 U/L (45-117)
[2016-10-03] MEDS ORDERED: FUROSEMIDE 40 MG/4 ML VIAL IV PUSH ONE (18:30)
[2016-10-03] MEDS ORDERED: POTASSIUM CHLORIDE 20 MEQ CONTROLLED RELEASE TAB PO ONE (18:30)
[2016-10-03 19:42] LABS: BLOOD, URINE NEG (NEG); GLUCOSE,URINE NEG (NEG); KETONE, URINE NEG (NEG); NITRITE,URINE NEG (NEG)
[2016-10-03 19:48] LABS: COMMENT (UR) CULT NOT INDICATED; CULTURE IF INDICATED CULT NOT INDICATED; RBC, URINE 0-3 /hpf (0-3); SQUAMOUS EPITHELIAL CELL URINE 0-5 /hpf (0-5); URINE COLOR STRAW (YELLW/STRAW); WBC, URINE 0-2 /hpf (0-5)
[2016-10-03] MEDS ORDERED: LORazepam 1 MG TAB PO PRN (20:00)
[2016-10-03] MEDS ORDERED: GLUCAGON 1 MG/ML VIAL OTHER PRN (20:30)
[2016-10-03] MEDS ORDERED: DEXTROSE 50% IN WATER 50 ML VIAL(D50) IV PRN (20:30)
--- NOTE | 2016-10-03 20:56 | MH ---
cc: DAVINA REYES DATE OF ADMISSION 10/03/2016 ADMISSION DIAGNOSIS Congestive heart failure. HISTORY OF PRESENT ILLNESS Mrs. Limon is a very pleasant 86-year-old female who presents to the emergency room after being sent from [facility]'s office for increasing shortness of breath. According to the patient for the last month she has become progressively more short of breath, with worsening lower extremity edema. She states she is unable to lie flat. She wakes up short of breath at night. She states that she has actually been getting palpitations as well particularly in the evening. Does not relate any particular cough of significance as she did have a PTCA with stent placement to the ramus intermediate on February of this year. At that time she did have an echo that showed an ejection fraction of 45-50% and evidence of pulmonary hypertension. She states that once she had the stent placed she was doing well for the next several months. She also has a history of anemia for which she has been getting GI evaluation. She underwent an endoscopy and colonoscopy without any difficulties. She relates no change in medications or diet over the last month. She denies any kind of chest pain. She tells me she is unable to tell me if she has gained weight as her scale is broken. PAST MEDICAL HISTORY Aside from the prior congestive heart failure and coronary artery disease is also type 2 diabetes, hypertension. 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 Hyperlipidemia. She also has a lung nodule that is being followed by her primary care doctor. She also has a history of lumbar stenosis and back pain. PAST SURGICAL HISTORY Surgical history includes the PTCA. She has had a , cholecystectomy, back surgery, left breast lumpectomy and total abdominal hysterectomy. ALLERGIES ALLERGIES INCLUDE CODEINE, SULFA AND ULTRAM. MEDICATIONS Include: 1. B12 2. Metformin 1000 milligrams twice a day. 3. Potassium chloride 20 milliequivalents daily. 4. Levothyroxine 137 micrograms daily. 5. Elavil 10 milligrams at bedtime. 6. Atorvastatin 80 milligrams daily. 7. Glimepiride 4 milligrams twice a day. 8. Losartan 50 milligrams every 12 hours. 9. Metoprolol 25 milligrams every 12 hours. 10. Tizanidine 4 milligrams at bedtime. 11. Lorazepam 1 milligram at bedtime or as needed for anxiety. 12. She is also on Tasigna 150 milligrams twice a day. HABITS She rarely consumes alcohol. She stopped smoking in the 1970s. SOCIAL HISTORY She is currently retired. She lives with her at [facility]. She still continues to use the front-wheel walker for steadiness. FAMILY HISTORY Noncontributory. REVIEW OF SYSTEMS See HPI. No fevers. No chills. No cough. She states she has had a good appetite. She suffers from constipation. No recent diarrhea. She urinates well. As stated the lower extremity swelling. She did have an episode of left flank pain for which she was in the emergency room 2 weeks ago, that resolved. PHYSICAL EXAMINATION VITAL SIGNS: Temperature is 98.6, pulse of 87, respirations 26, blood pressure is 172/76, pulse ox is 99% on 2 liters. GENERAL: When I see her in the ER she is semi-sitting in bed. She is wearing her oxygen. She is speaking in short sentences, but does not appear to be in any acute distress. HEENT: She is normocephalic and atraumatic. EOM is intact. LUNGS: Sounds are, I do no hear any rhonchi or wheezes, just very faint crackles on the right base ___. HEART: Her heart is regular. She is not tachycardiac. I hear no ectopy. ABDOMEN: Abdomen is globose. She has got good bowel sounds. Nontender. EXTREMITIES: Show edema up to her knees. LABORATORY DATA Lab work that was done showed a white count of 6.9, hemoglobin of 9.5, hematocrit 29.6, platelet count of 244, sodium of 135, BUN of 15, creatinine 0.7, GFR of 79, random glucose 156. LFTs were normal. Troponin was normal. BNP was 1008. TSH was 3.1. PT was 11.4, INR was 1, PTT was 25.3. Urine was clear. IMAGING STUDIES X-ray that was done showed no acute disease. ASSESSMENT/PLAN 1. An 86-year-old female presenting to the emergency room with volume overload and apparent CHF. At this point she is started on her diuretics, will go ahead and diurese her. Chest x-ray is read as normal and after discussion with the ER physician was gone ahead and ordered a CTA that is currently pending. Will go ahead and order an echocardiogram as well. She does have pulmonary hypertension which would also explain some of her shortness of breath but certainly not the significant amount of edema she has. Consult her assistant track coach further recommendation. She did have a stent placed on 06/02. She was placed on Plavix and aspirin but this was discontinued secondary to her iron deficiency anemia with apparent GI bleed of unknown source. 2. For her anemia. When I reviewed her hemoglobin/hematocrit from the children's institution attendant it would appear that on September 18 her hemoglobin was 11.5, today at 9.5, will continue to monitor her H&H. At this point she would need a pill cam for further evaluation. 3. For her type 2 diabetes we will continue her diabetic medications, diabetic diet and sliding scale. She is on her losartan for her hypertension. We will continue that. It would appear that her CML is stable at this point. Further recommendations as the case develops. MD JULIA Warner/GIOVANNI /8:05 PM /8:30 PM
[2016-10-03] MEDS: AMITRIPTYLINE HCL 10 MG TAB PO SCH (20:58)
[2016-10-03] MEDS: LOSARTAN 50 MG TAB PO SCH (20:58)
[2016-10-03 21:00] VITALS: BP 142/63; PULSE 82; RESP 18; O2SAT 99
[2016-10-03] MEDS ORDERED: GLIMEPIRIDE 4 MG TAB PO SCH (21:00)
[2016-10-03] MEDS: INSULIN ASPART SUPPLEMENTAL SCALE SQ SCH (21:00)
[2016-10-03] MEDS: METOPROLOL TARTRATE 25 MG TAB PO SCH (21:05)
--- NOTE | 2016-10-03 21:12 | RADRPT ---
EXAM DATE/TIME: 10/03/2016 20:30 [facility] COMPARISON: CT PULMONARY ANGIOGRAM, February 19, 2016, 21:48. INDICATIONS : Short of breath and bilateral lower extremity swelling. IV CONTRAST: 75 cc Omnipaque 350 (iohexol) IV RADIATION DOSE: 11.02 CTDIvol (mGy) MEDICAL HISTORY : Cerebrovascular disease. Cardiovascular disease Congestive heart failure.Hypertension. Diabetes. Leuk emia. Right breast cancer. SURGICAL HISTORY : Coronary artery stent. Cholecystectomy.Appendectomy.Hysterectomy. Tubal ligation. Right breast masrec lizzie. ENCOUNTER: Initial ACUITY: 1 day PAIN SCALE: 0/10 LOCATION: chest TECHNIQUE: Volumetric scanning of the chest was performed using a pulmonary embolism protocol MIP images were re constructed. Using automated exposure control and adjustment of the mA and/or kV according to patien t size, radiation dose was kept as low as reasonably achievable to obtain optimal diagnostic quality images. DICOM format image data is available electronically for review and comparison. Follow-up recommendations for detected pulmonary nodules are based at a minimum on nodule size and pa tient risk factors according to Fleischner Society Guidelines. FINDINGS: PULMONARY ARTERIES: No filling defects are seen in the pulmonary arteries through the segmental level. LUNGS: There is no consolidation or pneumothorax . Well-circumscribed nodule measuring approximately 11 mm i n the right lower lobe has remained stable. PLEURAE: There is no pleural thickening or pleural effusion. MEDIASTINUM: There is good visualization of the great vessels of the middle mediastinum. No evidence of mediastin al or hilar adenopathy/mass. MUSCULOSKELETAL: Within normal limits for patient age. MISCELLANEOUS: The visualized upper abdominal organs demonstrate no acute abnormality. CONCLUSION: 1. No evidence of PE. 2. Stable right lower lobe pulmonary nodule. 3. No acute cardiopulmonary process. Hugo Santana MD on October 03, 2016 at 20:59 Board Certified Radiologist. This report was verified electronically.
[2016-10-03] MEDS: ATORVASTATIN 40 MG TAB PO SCH (21:24)
[2016-10-03 22:00] VITALS: BP 98/65; PULSE 60; RESP 16; TEMP 95.4; O2SAT 100
[2016-10-03] MEDS ORDERED: SODIUM CHLORIDE 0.9% FLUSH 10 ML FLUSH IV FLUSH PRN (23:00)
[2016-10-04] VITALS (10 sets, daily range): BP systolic 98–157; BP diastolic 65–82; PULSE 60–85; RESP 16–20; TEMP 95.4–98.4; O2SAT 96–100
[2016-10-04] MEDS: LEVOTHYROXINE SODIUM 112 MCG TAB PO SCH (05:37)
[2016-10-04] MEDS: LEVOTHYROXINE SODIUM 25 MCG TAB PO SCH (05:38)
[2016-10-04] MEDS: INSULIN ASPART SUPPLEMENTAL SCALE SQ SCH ×4 (05:40→21:00)
[2016-10-04 06:30] LABS: AUTOMATED NEUTROPHIL # 4.6 TH/MM3 (1.8-7.7); BASOPHIL % 0.3 % (0.0-2.0); EOSINOPHIL # 0.1 TH/MM3 (0-0.4); EOSINOPHIL % 1.7 % (0.0-4.0); HEMATOCRIT 27.2 % (35.0-46.0); HEMO FLAGS DIFF FINAL; LYMPH % 18.8 % (9.0-44.0); LYMPHOCYTE # 1.2 TH/MM3 (1.0-4.8); MEAN CORPUSCULAR HEMOGLOBIN 28.5 PG (27.0-34.0); MEAN CORPUSCULAR HGB CONC 32.5 % (32.0-36.0); MONO % 7.3 % (0.0-8.0); NEUT % 71.9 % (16.0-70.0); PLATELET COUNT 207 TH/MM3 (150-450); RED CELL DISTRIBUTION WIDTH 17.4 % (11.6-17.2); WHITE BLOOD COUNT 6.4 TH/MM3 (4.0-11.0)
[2016-10-04 06:40] LABS: CHLORIDE 100 MEQ/L (98-107); POTASSIUM 3.5 MEQ/L (3.5-5.1); SODIUM (NA) 136 MEQ/L (136-145)
[2016-10-04 06:44] LABS: ANION GAP 7 MEQ/L (5-15); BICARBONATE 29.4 MEQ/L (21.0-32.0)
[2016-10-04 06:45] LABS: BLOOD UREA NITROGEN 13 MG/DL (7-18)
[2016-10-04 06:47] LABS: ALT (GPT) 40 U/L (10-53)
[2016-10-04 06:48] LABS: AST (GOT) 23 U/L (15-37)
[2016-10-04 06:49] LABS: GLOMERULAR FILTRATION RATE 107 ML/MIN (>89); TOTAL BILIRUBIN ADULT 0.7 MG/DL (0.2-1.0)
[2016-10-04 06:51] LABS: ALKALINE PHOSPHATASE 83 U/L (45-117)
--- NOTE | 2016-10-04 08:19 | PD.CONS ---
HPI Service cardiology Consult Requested By Flakito Reason for Consult CHF Primary Care Physician Richy Meza MD, PhD History of Present Illness 86yo WF with CAD, prior stenting to ramus earlier this year, anemia, HTN and DMII admitted yesterday for progressive SOB x several weeks. She went to see her operational review sergeant yesterday for follow up of anemia work-up and she was then directed to the ED due to concerns of acute CHF. She admits to having progressive SOB, lower leg edema and orthopnea for several weeks. No chest pain. Last echo earlier this year shows EF 45% with pHTN. Plavix and asa stopped around April due to anemia and concerns for occult bleed. She has had an upper and lower GI so far which were unremarkable and due to have capsule study soon. ECG upon arrival shows sinus rhythm with occasional PVCs, CXR clear. Diuresing well overnight and feeling better. Review of Systems Consitutional: DENIES: Fever, Chills, Weight loss Respiratory: DENIES: Cough, Snoring, Wheezing, Sputum production Cardiovascular: DENIES: Chest pain, Syncope, Tachycardia Gastrointestinal: DENIES: Nausea, Vomiting, Change in bowel habits, Reflux, Bloody stools, Melena Past Family Social History Allergies: Coded Allergies: Sulfa (Sulfonamide Antibiotics) (Unverified Allergy, Severe, Facial swelling, 10/03/16) codeine (Unverified Adverse Reaction, Severe, Heart races, 10/03/16) Past Medical History CAD, DMII,HTN. 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 Hyperlipidemia. She also has a lung nodule that is being followed by her primary care doctor. She also has a history of lumbar stenosis and back pain. Past Surgical History Surgical history includes the PTCA. She has had a , cholecystectomy, back surgery, left breast lumpectomy and total abdominal hysterectomy. Reported Medications Reported Meds & Active Scripts Active Potassium Chloride Microencaps 20 Meq Tab 20 Meq PO DAILY Metoprolol Tartrate 25 Mg Tab 25 Mg PO Q12HR Metformin (Metformin HCl) 1,000 Mg Tab 1,000 Mg PO BIDPC resume on 02/26/16 Reported Vitamin B-12 (Cyanocobalamin) 500 Mcg Tab 500 Mcg PO DAILY Tizanidine (Tizanidine HCl) 4 Mg Cap 4 Mg PO HS Furosemide 40 Mg Tab 40 Mg PO DAILY Calcium 500 +D (Calcium Carbonate-Cholecalciferol) 500-400 Mg-Unit Tab 2 Tab PO DAILY Atorvastatin (Atorvastatin Calcium) 80 Mg Tab 80 Mg PO HS Amaryl (Glimepiride) 4 Mg Tab 4 Mg PO BID Take with breakfast or first main meal Lorazepam 1 Mg Tab 1 Mg PO HS PRN Amitriptyline (Amitriptyline HCl) 10 Mg Tab 10 Mg PO HS Tasigna (Nilotinib) 150 Mg Cap 150 Mg PO Q12H Take on empty stomach Losartan (Losartan Potassium) 50 Mg Tab 50 Mg PO Q12HR Levothyroxine (Levothyroxine Sodium) 125 Mcg Tab 125 Mcg PO DAILY Active Ordered Medications Current Medications Medications (Trade) Dose Ordered Sig/Brian Route Start Time Stop Time Status Last Admin (Elavil) 10 mg HS PO 10/03/16 21:00 10/03/16 20:58 (Lipitor) 80 mg HS PO 10/03/16 21:00 10/03/16 21:24 (Vitamin B12) 500 mcg DAILY PO 10/04/16 09:00 (Ativan) 1 mg HS PRN PO 10/03/16 20:00 (Cozaar) 50 mg Q12HR PO 10/03/16 21:00 10/03/16 20:58 (Glucophage) 1,000 mg BIDPC PO 10/04/16 09:00 (Lopressor) 25 mg Q12HR PO 10/03/16 21:00 10/03/16 21:05 (Zanaflex) 4 mg HS PO 10/03/16 21:00 10/03/16 20:58 (Oscal-D 250-125) 4 mg DAILY PO 10/04/16 09:00 Patient Own Medication PT OWN MED: (Niloti... Q12HR PO 10/03/16 21:00 Future Hold (Synthroid) 112 mcg DAILY@0600 PO 10/04/16 06:00 10/04/16 05:37 (Synthroid) 25 mcg DAILY@0600 PO 10/04/16 06:00 10/04/16 05:38 (D50w (Vial) Inj) 50 ml UNSCH PRN IV 10/03/16 20:30 (Glucagon Inj) 1 mg UNSCH PRN OTHER 10/03/16 20:30 (NovoLOG SUPPLEMENTAL SCALE) 1 ACHS SLIDING SCALE SQ 10/03/16 21:00 (NS Flush) 2 ml BID IV FLUSH 10/04/16 09:00 (NS Flush) 2 ml UNSCH PRN IV FLUSH 10/03/16 23:00 (Lasix Inj) 40 mg BID@09,18 IVP 10/04/16 09:00 (KCl) 20 meq BID PO 10/04/16 09:00 Family History non-contributory Social History denies etoh, smoking or illicit drug use Physical Exam Vital Signs Vital Signs Date Time Temp Pulse Resp B/P (MAP) Pulse Ox O2 Delivery O2 Flow Rate FiO2 10/04/16 04:00 96.1 81 16 148/81 (103) 97 10/04/16 01:30 99 Nasal Cannula 2.00 10/04/16 00:00 95.4 60 16 98/65 (76) 100 10/03/16 22:00 10/03/16 22:00 95.4 60 16 98/65 (76) 100 10/03/16 21:00 82 18 142/63 (89) 99 Nasal Cannula 2.50 10/03/16 17:25 98.6 87 26 172/76 (108) 99 Nasal Cannula 2.00 10/03/16 17:15 26 100 Nasal Cannula 2.00 10/03/16 17:10 92 26 172/76 (108) 100 Physical Exam SKIN: Warm and dry. HEAD: Atraumatic. Normocephalic. EYES: Pupils equal and round. ENT: No nasal bleeding or discharge. Mucous membranes pink and moist. NECK: Trachea midline. No JVD. CARDIOVASCULAR: Regular rate and rhythm. No murmurs. bilateral lower leg 2+ pitting edema. RESPIRATORY: No accessory muscle use. Clear to auscultation. Breath sounds equal bilaterally. GASTROINTESTINAL: Abdomen soft, non-tender, nondistended. MUSCULOSKELETAL: Extremities without clubbing, cyanosis. No obvious deformities. NEUROLOGICAL: Awake and alert. No obvious cranial nerve deficits. Normal speech. PSYCHIATRIC: Appropriate mood and affect; insight and judgment normal. Laboratory Laboratory Tests Test 10/03/16 17:45 10/03/16 19:25 10/04/16 06:07 White Blood Count 6.9 6.4 Red Blood Count 3.35 3.10 Hemoglobin 9.5 8.8 Hematocrit 29.6 27.2 Mean Corpuscular Volume 88.3 88.0 Mean Corpuscular Hemoglobin 28.4 28.5 Mean Corpuscular Hemoglobin Concent 32.2 32.5 Red Cell Distribution Width 17.5 17.4 Platelet Count 244 207 Mean Platelet Volume 8.7 9.1 Neutrophils (%) (Auto) 74.6 71.9 Lymphocytes (%) (Auto) 16.2 18.8 Monocytes (%) (Auto) 7.6 7.3 Eosinophils (%) (Auto) 1.2 1.7 Basophils (%) (Auto) 0.4 0.3 Neutrophils # (Auto) 5.2 4.6 Lymphocytes # (Auto) 1.1 1.2 Monocytes # (Auto) 0.5 0.5 Eosinophils # (Auto) 0.1 0.1 Basophils # (Auto) 0.0 0.0 CBC Comment DIFF FINAL DIFF FINAL Differential Comment Prothrombin Time 11.4 Prothromb Time International Ratio 1.0 Activated Partial Thromboplast Time 25.3 Blood Urea Nitrogen 15 13 Creatinine 0.70 0.54 Random Glucose 156 126 Total Protein 7.1 6.5 Albumin 3.8 3.5 Calcium Level 8.9 8.9 Magnesium Level 1.8 Alkaline Phosphatase 98 83 Aspartate Amino Transf (AST/SGOT) 28 23 Alanine Aminotransferase (ALT/SGPT) 48 40 Total Bilirubin 0.5 0.7 Sodium Level 135 136 Potassium Level 3.6 3.5 Chloride Level 100 100 Carbon Dioxide Level 25.7 29.4 Estimat Glomerular Filtration Rate 79 107 Troponin I 0.02 B-Type Natriuretic Peptide 1008 Thyroid Stimulating Hormone 3rd Gen 3.110 Urine Color STRAW Urine Turbidity CLEAR Urine pH 7.0 Urine Specific [place] 1.005 Urine Protein NEG Urine Glucose (UA) NEG Urine Ketones NEG Urine Occult Blood NEG Urine Nitrite NEG Urine Bilirubin NEG Urine Leukocyte Esterase NEG Urine RBC 0-3 Urine WBC 0-2 Urine Squamous Epithelial Cells 0-5 Microscopic Urinalysis Comment CULT NOT INDICATED Anion Gap 7 Result Diagram: 10/04/1660610/04/16606 Assessment and Plan Problem List: (1) CAD (coronary artery disease) ICD Codes: I25.10 - Atherosclerotic heart disease of [place] coronary artery without angina pectoris Status: Acute (2) Anemia ICD Codes: D64.9 - Anemia, unspecified Status: Acute (3) Congestive heart failure ICD Codes: I50.9 - Heart failure, unspecified Status: Acute Assessment and Plan 86 yo WF with CAD, HTN, anemia and DMII admitted for CHF. CHF- echo in February EF 45%; echo today pending. diuresing well with -1.8L output yesterday. neg troponin, creatinine stable. ECG unremarkable. Continue diuresis with lasix IV 40mg BID. monitor Is/Os closely and creatinine. anemia- Hgb 8.8. hematology following. Problem Qualifiers (1) Congestive heart failure: Qualified Codes: I50.9 - Heart failure, unspecified Zo Vilchis Oct 04, 2016 08:19
[2016-10-04] MEDS ORDERED: CALCIUM/VITAMIN D 250 MG/125 U TAB PO SCH (09:00)
[2016-10-04] MEDS ORDERED: POTASSIUM CHLORIDE 20 MEQ CONTROLLED RELEASE TAB PO SCH (09:00)
[2016-10-04] MEDS: SODIUM CHLORIDE 0.9% FLUSH 10 ML FLUSH IV FLUSH SCH ×2 (09:33→21:29)
[2016-10-04] MEDS: FUROSEMIDE 40 MG/4 ML VIAL IVP SCH ×2 (09:34→18:51)
[2016-10-04] MEDS: CYANOCOBALAMIN 1,000 MCG TAB PO SCH (09:37)
[2016-10-04] MEDS: METOPROLOL TARTRATE 25 MG TAB PO SCH ×2 (09:38→21:29)
[2016-10-04] MEDS: POTASSIUM CHLORIDE 20 MEQ CONTROLLED RELEASE TAB PO SCH ×2 (09:38→21:31)
[2016-10-04] MEDS: metFORMIN HCL 500 MG TAB PO SCH ×2 (09:39→18:51)
[2016-10-04] MEDS: LOSARTAN 50 MG TAB PO SCH ×2 (09:39→21:30)
--- NOTE | 2016-10-04 13:38 | EKG ---
Date Performed: 10/03/2016 Time Performed: 17:29:51 PTAGE: 86 years EKG: Sinus rhythm WITH OCCASIONAL VENTRICULAR PREMATURE COMPLEXES NONSPECIFIC ST & T-WAVE ABNORMALITY BORDERLINE ECG C ompared to prior tracing no significant change PREVIOUS TRACING : 02/19/2016 19.17 DOCTOR: Sophy Rasmussen Interpretating Date/Time 10/04/2016 13:37:11
--- NOTE | 2016-10-04 14:56 | ECHRPT ---
Indication: HEART FAILURE CONCLUSIONS The left ventricular systolic function is severely reduced with an estimated ejection fraction in th e range of 30-35% There is global left ventricular dysfunction. Wall thickness is normal. Normal left ventricular size. Moderate thickening of the mitral valve leaflets. Moderate mitral valve regurgitation. Diffuse calcification of the aortic valve. Moderate aortic valve stenosis, severe stenosis cannot be excluded. There is moderate to severe tricuspid valve regurgitation. The estimated pulmonary arterial pressure is 74 mmHg. The inferior vena cava is dilated. BP: 148 / 81 HR: 103 Rhythm: Sinus MEASUREMENTS (Male / Female) Normal Values Technical Quality:Good 2D ECHO LV Diastolic Diameter PLAX 5.1 cm 4.2 - 5.9 / 3.9 - 5.3 cm LV Systolic Diameter PLAX 4.4 cm IVS Diastolic Thickness 1.1 cm 0.6 - 1.0 / 0.6 - 0.9 cm LVPW Diastolic Thickness 1.1 cm 0.6 - 1.0 / 0.6 - 0.9 cm LV Relative Wall Thickness 0.4 RV Internal Dim ED PLAX 3.1 cm LVOT Diameter 1.7 cm LA Systolic Diameter LX 4.0 cm 3.0 - 4.0 / 2.7 - 3.8 cm LV Ejection Fraction MOD 4C 35.9 % LV Cardiac Index MOD 4C 1503.0 cm/minm LV Ejection Fraction 4C AL 37.6 % LV Cardiac Index 4C AL 1608.6 cm/minm M-MODE Aortic Root Diameter MM 1.6 cm AV Cusp Separation MM 0.6 cm DOPPLER AV Peak Velocity 333.5 cm/s AV Peak Gradient 44.5 mmHg AV Mean Gradient 21.5 mmHg AV Velocity Time Integral 66.6 cm LVOT Peak Velocity 140.0 cm/s LVOT Peak Gradient 7.8 mmHg LVOT Velocity Time Integral 30.7 cm LVOT Cardiac Index 3740.6 cm/minm AV Area Cont Eq vti 1.0 cm AV Area Cont Eq pk 1.0 cm MV Area PHT 6.7 cm Mitral E Point Velocity 137.0 cm/s Mitral A Point Velocity 86.6 cm/s Mitral E to A Ratio 1.6 LV E' Lateral Velocity 7.6 cm/s Mitral E to LV E' Lateral Ratio 18.1 LV E' Septal Velocity 5.0 cm/s Mitral E to LV E' Septal Ratio 27.5 TR Peak Velocity 401.0 cm/s TR Peak Gradient 64.3 mmHg PV Peak Velocity 114.0 cm/s PV Peak Gradient 5.2 mmHg FINDINGS LEFT VENTRICLE The left ventricular systolic function is severely reduced with an estimated ejection fraction in th e range of 30-35% There is global left ventricular dysfunction. Wall thickness is normal. Normal left ventricular size. RIGHT VENTRICLE Normal right ventricular size and systolic function. LEFT ATRIUM The left atrial size is normal. RIGHT ATRIUM The right atrial size is normal. ATRIAL SEPTUM Normal atrial septal thickness without atrial level shunting by limited color doppler interrogation. AORTA The aortic root and proximal ascending aorta are normal in size on limited imaging. MITRAL VALVE Moderate thickening of the mitral valve leaflets. Moderate mitral valve regurgitation. AORTIC VALVE Diffuse calcification of the aortic valve. Moderate aortic valve stenosis. More severe stenosis can not be excluded withthe reduced EF. TRICUSPID VALVE There is moderate to severe tricuspid valve regurgitation. The estimated pulmonary arterial pressure is 74 mmHg. PULMONARY VALVE The pulmonary valve is not well visualized. VESSELS The inferior vena cava is dilated. PERICARDIUM No pericardial effusion. Gwendolyn Watt MD, FACC (Electronically Signed) Final Date:04 October 2016 14:55
--- NOTE | 2016-10-04 19:12 | HHI.PR ---
Subjective Remarks Feeling much better, can breathe better, no cp , no bm's since admission Objective Vitals Vital Signs Date Time Temp Pulse Resp B/P (MAP) Pulse Ox O2 Delivery O2 Flow Rate FiO2 10/04/16 15:50 98.4 85 20 157/82 (107) 97 10/04/16 11:38 97.7 71 20 133/75 (94) 98 10/04/16 08:00 96.9 79 20 147/80 (102) 100 10/04/16 07:45 99 Nasal Cannula 2.00 10/04/16 04:00 96.1 81 16 148/81 (103) 97 10/04/16 01:30 99 Nasal Cannula 2.00 10/04/16 00:00 95.4 60 16 98/65 (76) 100 10/03/16 22:00 10/03/16 22:00 95.4 60 16 98/65 (76) 100 10/03/16 21:00 82 18 142/63 (89) 99 Nasal Cannula 2.50 10/04/16 10/04/16 10/05/16 15:00 23:00 07:00 Intake Total 694 ml Output Total 1800 ml Balance -1106 ml Intake Oral 690 ml IV Total 4 ml Output Urine Total 1800 ml Result Diagram: 10/04/16 0607 10/04/16 0607 Other Results Last Impressions CT Angiography 10/03/16 1831 Signed Impressions: Service Date/Time: Monday, October 03, 2016 20:30 - CONCLUSION: 1. No evidence of PE. 2. Stable right lower lobe pulmonary nodule. 3. No acute cardiopulmonary process. Hugo Santana MD Chest X-Ray 10/03/16 1722 Signed Impressions: Service Date/Time: Monday, October 03, 2016 17:34 - CONCLUSION: No acute disease. Jatin Barrios MD Objective Remarks Sitting at bedside, looks much more comfortable cta, james 3/6 +bs, nontender + 1-2 pitting edema zachery A/P Problem List: (1) Congestive heart failure ICD Codes: I50.9 - Heart failure, unspecified Status: Acute Plan: diuresing well, clinically much improved echo shows diminished ef and increased compared to february cont arb follow renal function and electrolytes (2) Anemia ICD Codes: D64.9 - Anemia, unspecified Status: Chronic Plan: h/h dropped, so far gi w/u negative, next step is pill endoscopy no bms, no hemmocults monitor cbc (3) Lung nodule ICD Codes: R91.1 - Solitary pulmonary nodule Status: Chronic Plan: followed as outpatient (4) CAD (coronary artery disease) ICD Codes: I25.10 - Atherosclerotic heart disease of [place] coronary artery without angina pectoris Status: Chronic Plan: s/p stent to ramus intermedius in february, plavix and asa held due gi bleed and anemia (5) Type 2 diabetes mellitus ICD Codes: E11.9 - Type 2 diabetes mellitus without complications Status: Chronic Plan: continue on diabetic diet, metformin and sliding scale (6) Chronic myelogenous leukemia ICD Codes: C92.90 - Myeloid leukemia, unspecified, not having achieved remission Status: Chronic Plan: stable, follows with Dr Correa Problem Qualifiers (1) Congestive heart failure: Qualified Codes: I50.9 - Heart failure, unspecified Claribel Rosado MD Oct 04, 2016 19:12
[2016-10-04] MEDS: NILOTINIB 150 MG PO SCH (21:31)
[2016-10-04] MEDS: ATORVASTATIN 40 MG TAB PO SCH (21:31)
[2016-10-04] MEDS: AMITRIPTYLINE HCL 10 MG TAB PO SCH (21:35)
[2016-10-05] VITALS: BP 114/62; PULSE 69; RESP 18; TEMP 96.1; O2SAT 98
[2016-10-05 04:00] VITALS: BP 122/64; PULSE 71; RESP 18; TEMP 97.2; O2SAT 98
[2016-10-05] MEDS: INSULIN ASPART SUPPLEMENTAL SCALE SQ SCH ×2 (06:15→11:00)
[2016-10-05] MEDS: LEVOTHYROXINE SODIUM 25 MCG TAB PO SCH (06:15)
[2016-10-05] MEDS: LEVOTHYROXINE SODIUM 112 MCG TAB PO SCH (06:15)
--- NOTE | 2016-10-05 07:43 | PD.CARD.PN ---
Subjective Subjective Remarks denies chest pain or shortness of breath Objective Vital Signs / I&O Vital Signs Date Time Temp Pulse Resp B/P (MAP) Pulse Ox O2 Delivery O2 Flow Rate FiO2 10/05/16 04:00 97.2 71 18 122/64 (83) 98 10/05/16 00:00 96.1 69 18 114/62 (79) 98 10/04/16 23:00 85 10/04/16 20:34 96 21 10/04/16 20:00 85 10/04/16 20:00 97.0 82 18 147/78 (101) 97 10/04/16 15:50 98.4 85 20 157/82 (107) 97 10/04/16 11:38 97.7 71 20 133/75 (94) 98 10/04/16 08:00 96.9 79 20 147/80 (102) 100 10/04/16 07:45 99 Nasal Cannula 2.00 I/O 10/04/16 10/04/16 10/04/16 10/05/16 10/05/16 10/05/16 07:00 15:00 23:00 07:00 15:00 23:00 Intake Total 694 ml Output Total 1800 ml 900 ml Balance -1106 ml -900 ml Intake Oral 690 ml IV Total 4 ml Output Urine Total 1800 ml 900 ml # Voids 3 # Bowel Movements 0 Physical Exam GENERAL: Well-nourished, well-developed patient in no apparent distress. NECK: No JVD. No carotid bruit. CARDIOVASCULAR: Regular rate and rhythm. S1/S2 no rub or gallop. II/ PAM LSB RESPIRATORY: No accessory muscle use. Clear to auscultation. Breath sounds equal bilaterally. GASTROINTESTINAL: Abdomen soft, non-tender, nondistended. MUSCULOSKELETAL: Extremities without clubbing, cyanosis, or edema. Assessment and Plan Problem List: (1) CAD (coronary artery disease) ICD Codes: I25.10 - Atherosclerotic heart disease of [place] coronary artery without angina pectoris Status: Chronic (2) Congestive heart failure ICD Codes: I50.9 - Heart failure, unspecified Status: Acute Assessment and Plan Good diuresis, no clinical signs of CHF. She can be discharged home and f/u as outpatient Will need to consider further diagnostic workup of aortic stenosis Ischemic cardiomyopathy - on good medical regimen, avoid Sodium Problem Qualifiers (1) Congestive heart failure: Qualified Codes: I50.9 - Heart failure, unspecified Scotty Chung Oct 05, 2016 07:43
[2016-10-05 08:00] VITALS: BP 177/84; PULSE 87; RESP 18; TEMP 96.7; O2SAT 96
[2016-10-05] MEDS: LOSARTAN 50 MG TAB PO SCH (08:52)
[2016-10-05] MEDS: POTASSIUM CHLORIDE 20 MEQ CONTROLLED RELEASE TAB PO SCH (08:53)
[2016-10-05] MEDS: metFORMIN HCL 500 MG TAB PO SCH (08:53)
[2016-10-05] MEDS: METOPROLOL TARTRATE 25 MG TAB PO SCH (08:54)
[2016-10-05] MEDS: CYANOCOBALAMIN 1,000 MCG TAB PO SCH (08:54)
[2016-10-05] MEDS: SODIUM CHLORIDE 0.9% FLUSH 10 ML FLUSH IV FLUSH SCH (08:55)
[2016-10-05] MEDS: FUROSEMIDE 40 MG/4 ML VIAL IVP SCH (08:55)
[2016-10-05] MEDS: NILOTINIB 150 MG PO SCH (08:55)
[2016-10-05] MEDS ORDERED: CALCIUM/VITAMIN D 250 MG/125 U TAB PO SCH (09:00)
[2016-10-05 10:00] VITALS: O2SAT 96
[2016-10-05 11:48] LABS: AUTOMATED NEUTROPHIL # 7.3 TH/MM3 (1.8-7.7); BASOPHIL # 0.1 TH/MM3 (0-0.2); BASOPHIL % 0.7 % (0.0-2.0); EOSINOPHIL # 0.1 TH/MM3 (0-0.4); HEMATOCRIT 32.2 % (35.0-46.0); LYMPH % 12.9 % (9.0-44.0); LYMPHOCYTE # 1.2 TH/MM3 (1.0-4.8); MEAN CELL VOLUME 87.7 FL (80.0-100.0); MEAN CORPUSCULAR HEMOGLOBIN 27.9 PG (27.0-34.0); MEAN CORPUSCULAR HGB CONC 31.8 % (32.0-36.0); NEUT % 79.4 % (16.0-70.0); PLATELET COUNT 256 TH/MM3 (150-450); RED BLOOD COUNT 3.67 MIL/MM3 (4.00-5.30); RED CELL DISTRIBUTION WIDTH 17.3 % (11.6-17.2); WHITE BLOOD COUNT 9.3 TH/MM3 (4.0-11.0)
[2016-10-05 11:49] LABS: HEMO FLAGS DIFF FINAL
[2016-10-05 11:56] LABS: POTASSIUM 3.6 MEQ/L (3.5-5.1)
[2016-10-05 12:00] VITALS: BP 147/71; PULSE 74; RESP 18; TEMP 97.8; O2SAT 96
[2016-10-05 12:15] VITALS: PULSE 74
--- NOTE | 2016-10-05 13:51 | HHI.PR ---
Subjective Remarks Feeling good, still no bms, slept well tells me she actually was not taking her lasix every day. Took it maybe 3 times a week. Objective Vitals Vital Signs Date Time Temp Pulse Resp B/P (MAP) Pulse Ox O2 Delivery O2 Flow Rate FiO2 10/05/16 12:15 74 10/05/16 10:00 96 21 10/05/16 08:00 96.7 87 18 177/84 (115) 96 10/05/16 04:00 97.2 71 18 122/64 (83) 98 10/05/16 00:00 96.1 69 18 114/62 (79) 98 10/04/16 23:00 85 10/04/16 20:34 96 21 10/04/16 20:00 85 10/04/16 20:00 97.0 82 18 147/78 (101) 97 10/04/16 15:50 98.4 85 20 157/82 (107) 97 Result Diagram: 10/05/16 1115 10/05/16 1115 Objective Remarks Sitting at bedside, looks much more comfortable cta, james 3/6 +bs, nontender + trace edema zachery A/P Problem List: (1) Congestive heart failure ICD Codes: I50.9 - Heart failure, unspecified Status: Acute Plan: diuresed well, clinically much improved echo shows diminished ef and increased compared to february cont arb cardiology plans to evaluate as outpatient (2) Anemia ICD Codes: D64.9 - Anemia, unspecified Status: Chronic Plan: h/h dropped, so far gi w/u negative, next step is pill endoscopy no bms, no hemmocults h/h improved she gets transfusions as needed by dr correa (3) Lung nodule ICD Codes: R91.1 - Solitary pulmonary nodule Status: Chronic Plan: followed as outpatient (4) CAD (coronary artery disease) ICD Codes: I25.10 - Atherosclerotic heart disease of [place] coronary artery without angina pectoris Status: Chronic Plan: s/p stent to ramus intermedius in february, plavix and asa held due gi bleed and anemia stable (5) Type 2 diabetes mellitus ICD Codes: E11.9 - Type 2 diabetes mellitus without complications Status: Chronic Plan: continue on diabetic diet, metformin and sliding scale resume glimeperide at discharge (6) Chronic myelogenous leukemia ICD Codes: C92.90 - Myeloid leukemia, unspecified, not having achieved remission Status: Chronic Plan: stable, follows with Dr Correa Assessment and Plan dischrge home today with f/u with cardiology Problem Qualifiers (1) Congestive heart failure: Qualified Codes: I50.9 - Heart failure, unspecified Claribel Rosado MD Oct 05, 2016 13:51
--- NOTE | 2016-10-05 14:14 | HHI.DS ---
Discharge Summary Admission Date Oct 03, 2016 at 21:03 Discharge Date: Oct 05, 2016 Admitting Diagnosis CHF (1) Congestive heart failure Diagnosis: Principal ICD Codes: I50.9 - Heart failure, unspecified Status: Acute (2) Anemia Diagnosis: Secondary ICD Codes: D64.9 - Anemia, unspecified Status: Chronic (3) Lung nodule Diagnosis: Secondary ICD Codes: R91.1 - Solitary pulmonary nodule Status: Chronic (4) CAD (coronary artery disease) Diagnosis: Secondary ICD Codes: I25.10 - Atherosclerotic heart disease of [place] coronary artery without angina pectoris Status: Chronic (5) Type 2 diabetes mellitus Diagnosis: Secondary ICD Codes: E11.9 - Type 2 diabetes mellitus without complications Status: Chronic (6) Chronic myelogenous leukemia Diagnosis: Secondary ICD Codes: C92.90 - Myeloid leukemia, unspecified, not having achieved remission Status: Chronic [facility] Cardiology Brief History Pt presents to ER from [facility] office for 1 month of increasin SOB, edema PND and orthopnea. Admitted for chf. CBC/BMP: 10/05/16 1115 10/05/16 1115 Significant Findings Laboratory Tests Test 10/03/16 17:45 10/03/16 19:25 10/04/16 06:07 10/05/16 11:15 Red Blood Count 3.35 MIL/MM3 (4.00-5.30) 3.10 MIL/MM3 (4.00-5.30) 3.67 MIL/MM3 (4.00-5.30) Hemoglobin 9.5 GM/DL (11.6-15.3) 8.8 GM/DL (11.6-15.3) 10.2 GM/DL (11.6-15.3) Hematocrit 29.6 % (35.0-46.0) 27.2 % (35.0-46.0) 32.2 % (35.0-46.0) Red Cell Distribution Width 17.5 % (11.6-17.2) 17.4 % (11.6-17.2) 17.3 % (11.6-17.2) Neutrophils (%) (Auto) 74.6 % (16.0-70.0) 71.9 % (16.0-70.0) 79.4 % (16.0-70.0) Random Glucose 156 MG/DL (74-106) 126 MG/DL (74-106) 201 MG/DL (74-106) Sodium Level 135 MEQ/L (136-145) 133 MEQ/L (136-145) Estimat Glomerular Filtration Rate 79 ML/MIN (>89) 78 ML/MIN (>89) B-Type Natriuretic Peptide 1008 PG/ML (0-100) Mean Corpuscular Hemoglobin Concent 31.8 % (32.0-36.0) Chloride Level 96 MEQ/L (98-107) Imaging Last Impressions CT Angiography 10/03/16 1831 Signed Impressions: Service Date/Time: Monday, October 03, 2016 20:30 - CONCLUSION: 1. No evidence of PE. 2. Stable right lower lobe pulmonary nodule. 3. No acute cardiopulmonary process. Hugo Santana MD Chest X-Ray 10/03/16 1722 Signed Impressions: Service Date/Time: Monday, October 03, 2016 17:34 - CONCLUSION: No acute disease. Jatin Barrios MD PE at Discharge Sitting at bedside, looks much more comfortable cta, james 3/6 +bs, nontender + trace edema zachery Hospital Course Placed on iv lasix bid , echo ordered and seen by cardiology. Echo showed slightly diminished as compared to prior (30-35%) and She diuresed well and on day of discharge admitted to not taking her diuretics on a regular basis due to beinbg out of the house frequently with her and her husbands appointments. Stressed importance of taking them daily. Her anemia was monitored while she was in the hospital, she follow regularly with gi and hematology. She is to go home on all her regular medications. Pt Condition on Discharge: Stable Discharge Disposition: Discharge Home Discharge Instructions DIET: Follow Instructions for: Heart Healthy Diet, Diabetic Diet Activities you can perform: Regular-No Restrictions Follow up Referrals: Cardiology - 1 Week with Miguelito Andre MD PCP Follow-up - 2 Weeks with Richy Meza MD PhD Continued Medications: Amitriptyline (Amitriptyline) 10 Mg Tab 10 MG PO HS for FOOT CRAMPS, TAB Atorvastatin (Atorvastatin) 80 Mg Tab 80 MG PO HS for Cholesterol Management, #30 TAB 0 Refills Calcium Carbonate-Cholecalciferol (Calcium 500 +D) 500-400 Mg-Unit Tab 2 TAB PO DAILY for Calcium Supplement, TAB 0 Refills Cyanocobalamin (Vitamin B-12) 500 Mcg Tab 500 MCG PO DAILY for Nutritional Supplement, #1 BOTTLE 0 Refills Furosemide (Furosemide) 40 Mg Tab 40 MG PO DAILY, #30 TAB 0 Refills Glimepiride (Amaryl) 4 Mg Tab 4 MG PO BID for Blood Sugar Management, #30 TAB 0 Refills Take with breakfast or first main meal Levothyroxine (Levothyroxine) 125 Mcg Tab 125 MCG PO DAILY for Thyroid, #30 TAB 0 Refills Lorazepam (Lorazepam) 1 Mg Tab 1 MG PO HS PRN for ANXIETY AND/OR INSOMNIA, TAB 0 Refills Losartan (Losartan) 50 Mg Tab 50 MG PO Q12HR for Blood Pressure Management, #30 TAB 0 Refills Metformin (Metformin) 1,000 Mg Tab 1000 MG PO BIDPC for Blood Sugar Management, #0 TAB 0 Refills resume on 02/26/16 Metoprolol Tartrate (Metoprolol Tartrate) 25 Mg Tab 25 MG PO Q12HR for cad, #60 TAB 6 Refills Nilotinib (Tasigna) 150 Mg Cap 150 MG PO Q12H for Chemotherapy Management, CAP 0 Refills Take on empty stomach Potassium Chloride Microencaps (Potassium Chloride Microencaps) 20 Meq Tab 20 MEQ PO DAILY for supplement, #30 TAB Tizanidine (Tizanidine) 4 Mg Cap 4 MG PO HS for Muscle Spasm, CAP 0 Refills Claribel Rosado MD Oct 05, 2016 14:14
== END 2016-10-05 15:25 | disposition home or self-care (01) | DRG 292 ==
LOC: PHED 17:00 → PHEDA 21:03 → PH3A 22:02
PROVIDERS: ADMIT Legal Medicine; ATTEND Legal Medicine
DX: I11.0 Hypertensive heart disease with heart failure (principal); C92.11 Chronic myeloid leukemia, BCR/ABL-positive, in remission; I27.2 Other secondary pulmonary hypertension; E11.9 Type 2 diabetes mellitus without complications; K21.9 Gastro-esophageal reflux disease without esophagitis; E78.5 Hyperlipidemia, unspecified; I50.22 Chronic systolic (congestive) heart failure; D50.9 Iron deficiency anemia, unspecified; I25.10 Atherosclerotic heart disease of native coronary artery without angina pectoris; I25.5 Ischemic cardiomyopathy; M48.06 Spinal stenosis, lumbar region; I35.0 Nonrheumatic aortic (valve) stenosis; R91.1 Solitary pulmonary nodule; M19.90 Unspecified osteoarthritis, unspecified site; Z79.84 Long term (current) use of oral hypoglycemic drugs; Z95.5 Presence of coronary angioplasty implant and graft; Z86.711 Personal history of pulmonary embolism; Z85.3 Personal history of malignant neoplasm of breast; Z92.21 Personal history of antineoplastic chemotherapy; Z86.73 Personal history of transient ischemic attack (TIA), and cerebral infarction without residual deficits; Z87.891 Personal history of nicotine dependence
CPT/HCPCS: 36415; 71010; 71275; 80048; 80053; 81001; 82948; 83735; 83880; 84443; 84484; 85025; 85610; 85730; 93005; 93306; 96374; 99212; 99214; G0463; J1815; J1940; Q9967

== ENCOUNTER 2016-12-14 11:46 | Emergency (ER) | payer MEDICARE ==
[~2016-12-14 11:46] MED LIST changes: -AMAR2TAB PO; -ATOR1TAB18 PO; +ATOR80TA45 PO; +CYCL5TAB PO; -HYDR-3516 PO; -IOHEXOL 350 MG/ML 10 ML VIAL (for RAD DIAG) IV PUSH ONE; +MEDI220T PO; +NORC5TAB PO
[2016-12-14 11:49] VITALS: BP 178/89; PULSE 94; RESP 15; TEMP 97.7; O2SAT 95
[2016-12-14] MEDS ORDERED: MORPHINE SULFATE 4 MG/ML INJ IV PUSH ONE (12:00)
[2016-12-14] MEDS ORDERED: ONDANSETRON HCL 4 MG/2 ML VIAL IV PUSH ONE (12:00)
[2016-12-14] MEDS ORDERED: KETOROLAC TROMETHAMINE 30 MG/ML (IVP) VIAL IV PUSH ONE (12:00)
--- NOTE | 2016-12-14 12:05 | PD ---
HPI Chief Complaint: Back/ Neck Pain or Injury Time Seen by Provider: 11:51 Travel History International Travel<30 days: No Contact w/Intl Traveler<30days: No Traveled to known affect area: No History of Present Illness HPI The patient is a 86-year-old female who presents to the emergency department via EMS for low back pain. The patient states her back pain is located in the lower aspect of the back, radiates down the right leg. The pain is worse with movement but present at rest. The patient has a history of chronic back pain in the past and has been evaluated by her primary physician, Dr. Meza, for chronic back pain. The patient was referred to pain management in the past, however, her pet pain resolved and she never saw pain management. However, the patient's back pain started again last Monday, is located lower back, radiates down the right leg, worsen movement, and there are no current alleviating symptoms. The patient does state she had injections of Toradol, morphine, and Lortab which were working, however, she is now having breakthrough pain. She denies any focal weakness the right lower extremity denies any urinary or fecal incontinence. She denies any recent trauma to the low back and denies any recent falls. The patient was evaluated twice in the last several days in the emergency department and underwent a CT lumbar spine which revealed chronic degenerative changes but no acute fractures. PFSH Past Medical History Hx Anticoagulant Therapy: No Anemia: Yes Arthritis: Yes Asthma: No Autoimmune Disease: No Blood Disorders: No Anxiety: No Depression: No Heart Rhythm Problems: No Cancer: Yes (Leukemia, breast ) Cardiac Catheterization: Yes Cardiovascular Problems: Yes High Cholesterol: Yes Chemotherapy: Yes Chest Pain: Yes Congestive Heart Failure: Yes COPD: No Cerebrovascular Accident: Yes (TIA X's 2) Diabetes: Yes Diminished Hearing: No Endocrine: Yes Gastrointestinal Disorders: No GERD: Yes Genitourinary: Yes (Bladder prolapse, fibroid ) Headaches: Yes Hepatitis: No Hiatal Hernia: No Hypertension: Yes Immune Disorder: No Implanted Vascular Access Dvce: No Kidney Stones: No Musculoskeletal: Yes (Back, hip) Neurologic: No Psychiatric: No Reproductive: No Respiratory: Yes Migraines: No Radiation Therapy: No Renal Failure: No Seizures: No Shingles: Yes Sleep Apnea: No Thyroid Disease: Yes Ulcer: No Menopausal: Yes : 2 Para: 2 Tubal Ligation: Yes Past Surgical History Abdominal Surgery: Yes AICD: No Appendectomy: Yes Arteriovenous Shunt: No Cardiac Surgery: No Section: Yes Cholecystectomy: Yes Coronary Stent: Yes Ear Surgery: No Endocrine Surgery: No Eye Surgery: Yes (Cataract Rt. eye ) Genitourinary Surgery: Yes (Bladder, prolapse ) Gynecologic Surgery: Yes (PARTIAL HYSTERECTOMY, C SECTION) Hysterectomy: Yes (Partial ) Insulin Pump: No Joint Replacement: No Mastectomy: Yes (Rt. breast BX) Neurologic Surgery: No Oral Surgery: No Pacemaker: No Thoracic Surgery: Yes (back) Other Surgery: Yes (blood clot in lung, breast lump biopsy(CA)) Social History Alcohol Use: No Tobacco Use: No Substance Use: No Allergies-Medications (Allergen,Severity, Reaction): Coded Allergies: Sulfa (Sulfonamide Antibiotics) (Unverified Allergy, Severe, Facial swelling, 12/14/16) codeine (Unverified Adverse Reaction, Severe, Heart races, 12/14/16) Reported Meds & Prescriptions Reported Meds & Active Scripts Active [place] (Hydrocodone-Acetaminophen) 5-325 mg Tab 1 Tab PO Q6H PRN Naproxen Sodium 220 Mg Tab 440 Mg PO BID PRN 5 Days Flexeril (Cyclobenzaprine HCl) 5 Mg Tab 5 Mg PO TID 5 Days Potassium Chloride Microencaps 20 Meq Tab 20 Meq PO DAILY Metoprolol Tartrate 25 Mg Tab 25 Mg PO Q12HR Metformin (Metformin HCl) 1,000 Mg Tab 1,000 Mg PO BIDPC resume on 02/26/16 Reported Vitamin B-12 (Cyanocobalamin) 500 Mcg Tab 500 Mcg PO DAILY Tizanidine (Tizanidine HCl) 4 Mg Cap 4 Mg PO HS Furosemide 40 Mg Tab 40 Mg PO DAILY Calcium 500 +D (Calcium Carbonate-Cholecalciferol) 500-400 Mg-Unit Tab 2 Tab PO DAILY Atorvastatin (Atorvastatin Calcium) 80 Mg Tab 80 Mg PO HS Amaryl (Glimepiride) 4 Mg Tab 4 Mg PO BID Take with breakfast or first main meal Lorazepam 1 Mg Tab 1 Mg PO HS PRN Amitriptyline (Amitriptyline HCl) 10 Mg Tab 10 Mg PO HS Tasign[place] (Nilotinib) 150 Mg Cap 150 Mg PO Q12H Take on empty stomach Losartan (Losartan Potassium) 50 Mg Tab 50 Mg PO Q12HR Levothyroxine (Levothyroxine Sodium) 125 Mcg Tab 125 Mcg PO DAILY Review of Systems Except as stated in HPI: all other systems reviewed are Neg General / Constitutional: No: Fever Cardiovascular: No: Chest Pain or Discomfort Respiratory: No: Shortness of Breath Gastrointestinal: No: Nausea, Vomiting, Abdominal Pain Genitourinary: No: Dysuria, Incontinence Musculoskeletal: Positive: Pain, Other (difficulty ambulating secondary to pain ), No: Limited ROM Neurologic: No: Focal Abnormalities, Change in Mentation, Paresthesia, Incontinence, Sensory Disturbance Physical Exam Narrative GENERAL: Awake, alert, pleasant 86-year-old female who appears her stated age and is in no acute respiratory distress. SKIN: Focused skin assessment warm/dry. HEAD: Atraumatic. Normocephalic. EYES: No injection or drainage. ENT: No nasal bleeding or discharge. Mucous membranes pink and moist. NECK: Trachea midline. No JVD. CARDIOVASCULAR: Regular rate and rhythm. No murmur appreciated. RESPIRATORY: No accessory muscle use. Clear to auscultation. Breath sounds equal bilaterally. GASTROINTESTINAL: Abdomen soft, non-tender, nondistended. No rebound tenderness. Back: Mild tenderness of the lower lumbar and sacral region as well as the right sacroiliac joint. Negative CVA tenderness. MUSCULOSKELETAL: Negative straight leg on the right. Flexion right great toes 5 out of 5. Plantar flexion is 5 over 5 on the right. Dorsiflexion is 5 out of 5 in the right. Extension right knee is 4+5 on the right. Flexion of the right hip is 4+/5 on the right, most likely secondary to pain. Positive right dorsalis pedal pulse. No tenderness of lateral aspect of the right hip. NEUROLOGICAL: Awake and alert. No obvious cranial nerve deficits. Motor grossly within normal limits. Normal speech. Sensation is intact to the medial , lateral, dorsal aspect of the right leg. PSYCHIATRIC: Appropriate mood and affect; insight and judgment normal. Data Data Last Documented VS Vital Signs Date Time Temp Pulse Resp B/P (MAP) Pulse Ox O2 Delivery O2 Flow Rate FiO2 12/14/16 13:12 67 15 125/62 (83) 95 Room Air 12/14/16 11:49 97.7 Orders Orders Complete Blood Count With Diff (12/14/16 11:57) Basic Metabolic Panel (Bmp) (12/14/16 11:57) Urinalysis - C+S If Indicated (12/14/16 11:57) Morphine Inj (Morphine Inj) (12/14/16 12:00) Ketorolac Inj (Toradol Inj) (12/14/16 12:00) Ondansetron Inj (Zofran Inj) (12/14/16 12:00) Morphine Inj (Morphine Inj) (12/14/16 12:15) Ed Discharge Order (12/14/16 13:07) Urine Culture (12/14/16 13:09) Labs Laboratory Tests Test 12/14/16 12:08 12/14/16 13:09 White Blood Count 7.6 TH/MM3 Red Blood Count 3.45 MIL/MM3 Hemoglobin 9.6 GM/DL Hematocrit 29.7 % Mean Corpuscular Volume 86.0 FL Mean Corpuscular Hemoglobin 27.8 PG Mean Corpuscular Hemoglobin Concent 32.3 % Red Cell Distribution Width 16.5 % Platelet Count 284 TH/MM3 Mean Platelet Volume 8.5 FL Neutrophils (%) (Auto) 78.4 % Lymphocytes (%) (Auto) 12.2 % Monocytes (%) (Auto) 5.3 % Eosinophils (%) (Auto) 1.1 % Basophils (%) (Auto) 3.0 % Neutrophils # (Auto) 6.0 TH/MM3 Lymphocytes # (Auto) 0.9 TH/MM3 Monocytes # (Auto) 0.4 TH/MM3 Eosinophils # (Auto) 0.1 TH/MM3 Basophils # (Auto) 0.2 TH/MM3 CBC Comment DIFF FINAL Differential Comment Blood Urea Nitrogen 13 MG/DL Creatinine 0.55 MG/DL Random Glucose 164 MG/DL Calcium Level 9.1 MG/DL Sodium Level 130 MEQ/L Potassium Level 4.6 MEQ/L Chloride Level 95 MEQ/L Carbon Dioxide Level 24.4 MEQ/L Anion Gap 11 MEQ/L Estimat Glomerular Filtration Rate 104 ML/MIN Urine Collection Type CLEAN CATCH Urine Color YELLOW Urine Turbidity SLIGHT Urine pH 6.5 Urine Specific [place] 1.009 Urine Protein NEG mg/dL Urine Glucose (UA) NEG mg/dL Urine Ketones NEG mg/dL Urine Occult Blood NEG Urine Nitrite POS Urine Bilirubin NEG Urine Leukocyte Esterase SMALL Urine RBC 0-3 /hpf Urine WBC 6-8 /hpf Urine Squamous Epithelial Cells 6-8 /hpf Urine Bacteria MANY /hpf Microscopic Urinalysis Comment CULTURE INDICATED Urine Collection Time 13:09 MDM Medical Decision Making Medical Screen Exam Complete: Yes Emergency Medical Condition: Yes Medical Record Reviewed: Yes Interpretation(s) I reviewed the patient's CT lumbar spine without contrast that was performed on 12/11/2016. Conclusion revealed advanced discogenic degenerative changes throughout the lumbar spine with broad-based disc bulging extending into the neural foramina at each level. In addition, there is expansion of the L2 vertebral body with coarsened trabecula and the vertebral bodies and posterior elements characteristic of Paget's disease. Laboratory Tests Test 12/14/16 12:08 White Blood Count 7.6 TH/MM3 Red Blood Count 3.45 MIL/MM3 Hemoglobin 9.6 GM/DL Hematocrit 29.7 % Mean Corpuscular Volume 86.0 FL Mean Corpuscular Hemoglobin 27.8 PG Mean Corpuscular Hemoglobin Concent 32.3 % Red Cell Distribution Width 16.5 % Platelet Count 284 TH/MM3 Mean Platelet Volume 8.5 FL Neutrophils (%) (Auto) 78.4 % Lymphocytes (%) (Auto) 12.2 % Monocytes (%) (Auto) 5.3 % Eosinophils (%) (Auto) 1.1 % Basophils (%) (Auto) 3.0 % Neutrophils # (Auto) 6.0 TH/MM3 Lymphocytes # (Auto) 0.9 TH/MM3 Monocytes # (Auto) 0.4 TH/MM3 Eosinophils # (Auto) 0.1 TH/MM3 Basophils # (Auto) 0.2 TH/MM3 CBC Comment DIFF FINAL Differential Comment Blood Urea Nitrogen 13 MG/DL Creatinine 0.55 MG/DL Random Glucose 164 MG/DL Calcium Level 9.1 MG/DL Sodium Level 130 MEQ/L Potassium Level 4.6 MEQ/L Chloride Level 95 MEQ/L Carbon Dioxide Level 24.4 MEQ/L Anion Gap 11 MEQ/L Estimat Glomerular Filtration Rate 104 ML/MIN Differential Diagnosis Differential diagnosis includes chronic back pain, herniated disc, fracture, cauda equina, spinal stenosis, sciatica, breakthrough pain. Narrative Course IV was established, labs are drawn and sent, and the patient was placed on cardiac telemetry monitoring and continuous pulse oximetry monitoring. The patient was administered Toradol, morphine, and Zofran. I had a discussion with the patient's primary physician, Dr. Meza, at 12:05 PM and after discussion was agreed we tried pain management via IV, patient persists to have symptoms, case management will evaluate the patient for placement into short- term rehabilitation. I do discussion with the patient who is unsure if she would prefer to be discharged home to the [facility] or have short term rehabilitation. Therefore, the patient and her were allowed time to consider her options. The patient would prefer rehabilitation, therefore, discussed the patient once again with her primary physician, Dr. Meza. Dr. Meza notified [facility] case management who spoke with our case management and arranged shelter facility short term rehabilitation at [facility], per the patient's request. Diagnosis Primary Impression: Back pain with right-sided radiculopathy Additional Impressions: Inability to ambulate due to multiple joints UTI (urinary tract infection) Qualified Codes: N30.00 - Acute cystitis without hematuria Patient Instructions: General Instructions Med/Other Pt SpecificInfo: Prescription(s) given Scripts Ciprofloxacin (Cipro) 500 Mg Tab 500 MG PO BID for Infection for 3 Days, #6 TAB 0 Refills Prov: Philip Morales MD 12/14/16 Disposition: 70 TRANSFER TO OTHER FACILITY (transfer to [facility]) Condition: Stable Philip Morales MD Dec 14, 2016 12:05
[2016-12-14 12:14] LABS: BASOPHIL # 0.2 TH/MM3 (0-0.2); EOSINOPHIL # 0.1 TH/MM3 (0-0.4); EOSINOPHIL % 1.1 % (0.0-4.0); HEMATOCRIT 29.7 % (35.0-46.0); HEMO FLAGS DIFF FINAL; LYMPH % 12.2 % (9.0-44.0); LYMPHOCYTE # 0.9 TH/MM3 (1.0-4.8); MEAN CORPUSCULAR HEMOGLOBIN 27.8 PG (27.0-34.0); MEAN CORPUSCULAR HGB CONC 32.3 % (32.0-36.0); MONO % 5.3 % (0.0-8.0); NEUT % 78.4 % (16.0-70.0); PLATELET COUNT 284 TH/MM3 (150-450); RED BLOOD COUNT 3.45 MIL/MM3 (4.00-5.30); RED CELL DISTRIBUTION WIDTH 16.5 % (11.6-17.2); WHITE BLOOD COUNT 7.6 TH/MM3 (4.0-11.0)
[2016-12-14] MEDS ORDERED: MORPHINE SULFATE 8 MG/ML INJ IV PUSH ONE (12:15)
[2016-12-14 12:22] LABS: POTASSIUM 4.6 MEQ/L (3.5-5.1)
[2016-12-14 12:25] LABS: BICARBONATE 24.4 MEQ/L (21.0-32.0)
[2016-12-14 13:12] VITALS: BP 125/62; PULSE 67; RESP 15; O2SAT 95
[2016-12-14 13:18] LABS: BLOOD, URINE NEG (NEG); GLUCOSE,URINE NEG (NEG); KETONE, URINE NEG (NEG); NITRITE,URINE POS (NEG); PH, URINE 6.5 (5.0-8.5)
[2016-12-14 13:30] LABS: URINE COLOR YELLOW (YELLW/STRAW)
[2016-12-14 13:31] LABS: BACTERIA, URINE MANY /hpf; COMMENT (UR) CULTURE INDICATED; CULTURE IF INDICATED CULTURE INDICATED; METHOD OF COLLECTION CLEAN CATCH; RBC, URINE 0-3 /hpf (0-3)
[2016-12-14] MEDS ORDERED: CIPR-9 PO (13:41)
[2016-12-14] MEDS ORDERED: CIPROFLOXACIN 500 MG TAB PO ONE (13:45)
[2016-12-14] MEDS ORDERED: NORC5TAB PO (14:05)
[2016-12-14] MEDS ORDERED: LORA-474 PO (14:39)
[2016-12-14 15:00] VITALS: BP 129/75
== END 2016-12-14 15:37 | disposition short-term general hospital (02) ==
LOC: PHED 11:46
DX: M54.5 Low back pain (principal); N30.00 Acute cystitis without hematuria; B96.20 Unspecified Escherichia coli [E. coli] as the cause of diseases classified elsewhere; E11.9 Type 2 diabetes mellitus without complications; I11.0 Hypertensive heart disease with heart failure; I50.9 Heart failure, unspecified; Z79.84 Long term (current) use of oral hypoglycemic drugs
CPT/HCPCS: 80048; 81001; 85025; 87077; 87086; 87186; 96374; 96375; 99284; J1885; J2270; J2405

== ENCOUNTER 2017-01-30 10:32 | Emergency (ER) | payer MEDICARE ==
[~2017-01-30] VITALS: Ht 160 cm; Wt 75.0 kg
[~2017-01-30 10:32] MED LIST changes: +CIPR-9 PO; +LORA-474 PO; -MEDI220T PO
[2017-01-30 10:38] VITALS: BP 179/83; PULSE 82; RESP 18; TEMP 98.3; O2SAT 97
--- NOTE | 2017-01-30 10:53 | PD ---
HPI Chief Complaint: GI Complaint Time Seen by Provider: 10:43 Travel History International Travel<30 days: No Contact w/Intl Traveler<30days: No Traveled to known affect area: No History of Present Illness HPI Patient is an 86-year-old female presents emergency department for evaluation of bowel and bladder incontinence. Patient states that last week she had a MRI of her lumbar spine showing multiple degenerative changes, she states she was still having significant pain and went to a shipyard painter helper who did an epidural on her on Monday. She states her pain is now very well-controlled but now she is having bladder and bowel incontinence. She's also endorsing some dark stools. Denies any weakness numbness and tingling in the saddle distribution inability to ambulate. She called her primary care physician today Dr. Meza who directed her towards emergency department. PFSH Past Medical History Hx Anticoagulant Therapy: No Anemia: Yes Arthritis: Yes Asthma: No Autoimmune Disease: No Blood Disorders: No Anxiety: No Depression: No Heart Rhythm Problems: No Cancer: Yes (Leukemia, breast ) Cardiac Catheterization: Yes Cardiovascular Problems: Yes High Cholesterol: Yes Chemotherapy: Yes Chest Pain: Yes Congestive Heart Failure: Yes COPD: No Cerebrovascular Accident: Yes (TIA X's 2) Diabetes: Yes Patient Takes Glucophage: Yes Diminished Hearing: No Endocrine: Yes Gastrointestinal Disorders: No GERD: Yes Genitourinary: Yes (Bladder prolapse, fibroid ) Headaches: Yes Hepatitis: No Hiatal Hernia: No Hypertension: Yes Immune Disorder: No Implanted Vascular Access Dvce: No Kidney Stones: No Musculoskeletal: Yes (Back, hip) Neurologic: No Psychiatric: No Reproductive: No Respiratory: Yes Migraines: No Radiation Therapy: No Renal Failure: No Seizures: No Shingles: Yes Sleep Apnea: No Thyroid Disease: Yes Ulcer: No Tetanus Vaccination: < 5 Years Influenza Vaccination: Yes Menopausal: Yes : 2 Para: 2 Tubal Ligation: Yes Past Surgical History Abdominal Surgery: Yes AICD: No Appendectomy: Yes Arteriovenous Shunt: No Cardiac Surgery: No Section: Yes Cholecystectomy: Yes Coronary Stent: Yes Ear Surgery: No Endocrine Surgery: No Eye Surgery: Yes (Cataract Rt. eye ) Genitourinary Surgery: Yes (Bladder, prolapse ) Gynecologic Surgery: Yes (PARTIAL HYSTERECTOMY, C SECTION) Hysterectomy: Yes (Partial ) Insulin Pump: No Joint Replacement: No Mastectomy: Yes (Rt. breast BX) Neurologic Surgery: No Oral Surgery: No Pacemaker: No Thoracic Surgery: Yes (back) Other Surgery: Yes (blood clot in lung, breast lump biopsy(CA)) Social History Alcohol Use: No Tobacco Use: No Substance Use: No Allergies-Medications (Allergen,Severity, Reaction): Coded Allergies: Sulfa (Sulfonamide Antibiotics) (Unverified Allergy, Severe, Facial swelling, 01/30/17) codeine (Unverified Adverse Reaction, Severe, Heart races, 01/30/17) Reported Meds & Prescriptions Reported Meds & Active Scripts Active Keflex (Cephalexin) 500 Mg Cap 500 Mg PO Q6H 7 Days Ativan (Lorazepam) 1 Mg Tab 1 Mg PO HS PRN [place] (Hydrocodone-Acetaminophen) 5-325 mg Tab 1 Tab PO Q6H PRN Cipro (Ciprofloxacin HCl) 500 Mg Tab 500 Mg PO BID 3 Days [place] (Hydrocodone-Acetaminophen) 5-325 mg Tab 1 Tab PO Q6H PRN Flexeril (Cyclobenzaprine HCl) 5 Mg Tab 5 Mg PO TID 5 Days Potassium Chloride Microencaps 20 Meq Tab 20 Meq PO DAILY Metoprolol Tartrate 25 Mg Tab 25 Mg PO Q12HR Metformin (Metformin HCl) 1,000 Mg Tab 1,000 Mg PO BIDPC resume on 02/26/16 Reported Vitamin B-12 (Cyanocobalamin) 500 Mcg Tab 500 Mcg PO DAILY Tizanidine (Tizanidine HCl) 4 Mg Cap 4 Mg PO HS Furosemide 40 Mg Tab 40 Mg PO DAILY Calcium 500 +D (Calcium Carbonate-Cholecalciferol) 500-400 Mg-Unit Tab 2 Tab PO DAILY Atorvastatin (Atorvastatin Calcium) 80 Mg Tab 80 Mg PO HS Amaryl (Glimepiride) 4 Mg Tab 4 Mg PO BID Take with breakfast or first main meal Lorazepam 1 Mg Tab 1 Mg PO HS PRN Amitriptyline (Amitriptyline HCl) 10 Mg Tab 10 Mg PO HS Tasigna (Nilotinib) 150 Mg Cap 150 Mg PO Q12H Take on empty stomach Losartan (Losartan Potassium) 50 Mg Tab 50 Mg PO Q12HR Levothyroxine (Levothyroxine Sodium) 125 Mcg Tab 125 Mcg PO DAILY Review of Systems Except as stated in HPI: all other systems reviewed are Neg Physical Exam Narrative GENERAL: Well-developed well-nourished no obvious distress SKIN: Focused skin assessment warm/dry. HEAD: Atraumatic. Normocephalic. EYES: Pupils equal and round. No scleral icterus. No injection or drainage. ENT: No nasal bleeding or discharge. Mucous membranes pink and moist. NECK: Trachea midline. No JVD. CARDIOVASCULAR: Regular rate and rhythm. No murmur appreciated. RESPIRATORY: No accessory muscle use. Clear to auscultation. Breath sounds equal bilaterally. GASTROINTESTINAL: Abdomen soft, non-tender, nondistended. Hepatic and splenic margins not palpable. MUSCULOSKELETAL: No obvious deformities. No clubbing. No cyanosis. No edema. NEUROLOGICAL: Awake and alert. Cranial nerves II through XII are grossly intact and nonfocal, 5 out of 5 strength in plantar flexion and extension at the knee. Sensation is intact over L4-L5 and S1 nerve roots. Patient has no numbness or tingling at the rectum, rectal tone is normal, no hemorrhoids felt. Brown stool, weakly Hemoccult positive. PSYCHIATRIC: Appropriate mood and affect; insight and judgment normal. Data Data Last Documented VS Orders Orders Complete Blood Count With Diff (01/30/17 10:58) Comprehensive Metabolic Panel (01/30/17 10:58) Prothrombin Time / Inr (Pt) (01/30/17 10:58) Act Partial Throm Time (Ptt) (01/30/17 10:58) Urinalysis - C+S If Indicated (01/30/17 10:58) Iv Access Insert/Monitor (01/30/17 10:58) Ecg Monitoring (01/30/17 10:58) Oximetry (01/30/17 10:58) Sodium Chloride 0.9% Flush (Ns Flush) (01/30/17 11:00) Sodium Chlorid 0.9% 500 Ml Inj (Ns 500 M (01/30/17 11:00) Mri L Spine W&W/O Contrast (01/30/17 ) Gadodiamide Pf Inj (Omniscan Pf Inj) (01/30/17 13:01) Urine Culture (01/30/17 14:35) Ed Discharge Order (01/30/17 15:07) Labs Laboratory Tests Test 01/30/17 10:45 01/30/17 14:35 White Blood Count 10.7 TH/MM3 Red Blood Count 3.57 MIL/MM3 Hemoglobin 10.3 GM/DL Hematocrit 31.2 % Mean Corpuscular Volume 87.3 FL Mean Corpuscular Hemoglobin 28.9 PG Mean Corpuscular Hemoglobin Concent 33.1 % Red Cell Distribution Width 20.0 % Platelet Count 274 TH/MM3 Mean Platelet Volume 9.9 FL Neutrophils (%) (Auto) 82.1 % Lymphocytes (%) (Auto) 10.9 % Monocytes (%) (Auto) 6.6 % Eosinophils (%) (Auto) 0.2 % Basophils (%) (Auto) 0.2 % Neutrophils # (Auto) 8.8 TH/MM3 Lymphocytes # (Auto) 1.2 TH/MM3 Monocytes # (Auto) 0.7 TH/MM3 Eosinophils # (Auto) 0.0 TH/MM3 Basophils # (Auto) 0.0 TH/MM3 CBC Comment DIFF FINAL Differential Comment Prothrombin Time 10.7 SEC Prothromb Time International Ratio 1.1 RATIO Activated Partial Thromboplast Time 24.2 SEC Blood Urea Nitrogen 16 MG/DL Creatinine 0.75 MG/DL Random Glucose 287 MG/DL Total Protein 7.2 GM/DL Albumin 4.1 GM/DL Calcium Level 9.1 MG/DL Alkaline Phosphatase 107 U/L Aspartate Amino Transf (AST/SGOT) 36 U/L Alanine Aminotransferase (ALT/SGPT) 71 U/L Total Bilirubin 0.7 MG/DL Sodium Level 131 MEQ/L Potassium Level 4.6 MEQ/L Chloride Level 101 MEQ/L Carbon Dioxide Level 21.0 MEQ/L Anion Gap 9 MEQ/L Estimat Glomerular Filtration Rate 73 ML/MIN Urine Color YELLOW Urine Turbidity HAZY Urine pH 6.0 Urine Specific [place] 1.011 Urine Protein TRACE mg/dL Urine Glucose (UA) NEG mg/dL Urine Ketones NEG mg/dL Urine Occult Blood NEG Urine Nitrite POS Urine Bilirubin NEG Urine Urobilinogen LESS THAN 2.0 MG/DL Urine Leukocyte Esterase NEG Urine WBC 2 /hpf Urine Squamous Epithelial Cells 2 /hpf Urine Bacteria MANY /hpf Microscopic Urinalysis Comment CULTURE INDICATED MDM Medical Decision Making Medical Screen Exam Complete: Yes Emergency Medical Condition: Yes Differential Diagnosis Urinary tract infection, cauda equina seems unlikely, diarrheal illness, Narrative Course Patient roomed in emergency department, although I think that clinically cauda equina is unlikely the patient does have risk factors fallen at think that an MRI is indicated. She could have epidural hematoma as well given recent instrumentation. 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 I do not see evidence for hematoma. No significant impingement is at the tip of the conus at L2-L3. Noel oDwns MD FACR The patient was reassured, she does have urinary tract infection which may explain her urinary symptoms, she's not had bowel movement while in the emergency department. Results were discussed with the patient and recommended continued follow-up with Dr. Meza. She stable for discharge. Diagnosis Primary Impression: Back pain with left-sided radiculopathy Additional Impression: UTI (urinary tract infection) Qualified Codes: N39.0 - Urinary tract infection, site not specified Scripts Cephalexin (Keflex) 500 Mg Cap 500 MG PO Q6H for Infection for 7 Days, #28 CAP 0 Refills Prov: Mika Bertrand MD 01/30/17 Disposition: 01 DISCHARGE HOME Condition: Stable Mika Bertrand MD Jan 30, 2017 10:53
[2017-01-30] MEDS ORDERED: SODIUM CHLORID 0.9% 500 ML INJ 500 ML IV ONE (11:00)
[2017-01-30] MEDS ORDERED: SODIUM CHLORIDE 0.9% FLUSH 10 ML FLUSH IV FLUSH PRN (11:00)
[2017-01-30 11:33] LABS: AUTOMATED NEUTROPHIL # 8.8 TH/MM3 (1.8-7.7); BASOPHIL % 0.2 % (0.0-2.0); EOSINOPHIL % 0.2 % (0.0-4.0); HEMATOCRIT 31.2 % (35.0-46.0); HEMOGLOBIN 10.3 GM/DL (11.6-15.3); LYMPH % 10.9 % (9.0-44.0); LYMPHOCYTE # 1.2 TH/MM3 (1.0-4.8); MEAN CELL VOLUME 87.3 FL (80.0-100.0); MEAN CORPUSCULAR HEMOGLOBIN 28.9 PG (27.0-34.0); MEAN CORPUSCULAR HGB CONC 33.1 % (32.0-36.0); MEAN PLATELET VOLUME 9.9 FL (7.0-11.0); MONO % 6.6 % (0.0-8.0); MONOCYTE # 0.7 TH/MM3 (0-0.9); NEUT % 82.1 % (16.0-70.0); PLATELET COUNT 274 TH/MM3 (150-450); RED BLOOD COUNT 3.57 MIL/MM3 (4.00-5.30); WHITE BLOOD COUNT 10.7 TH/MM3 (4.0-11.0)
[2017-01-30 11:42] LABS: INTERNATIONAL NORMALIZED RATIO 1.1 RATIO; PROTHROMBIN TIME - PATIENT 10.7 SEC (9.8-11.6)
[2017-01-30 11:46] LABS: ALBUMIN 4.1 GM/DL (3.4-5.0); ALT (GPT) 71 U/L (10-53); AST (GOT) 36 U/L (15-37); BLOOD UREA NITROGEN 16 MG/DL (7-18); CALCIUM 9.1 MG/DL (8.5-10.1); CHLORIDE 101 MEQ/L (98-107); CREATININE 0.75 MG/DL (0.50-1.00); GLOMERULAR FILTRATION RATE 73 ML/MIN (>89); GLUCOSE,RANDOM 287 MG/DL (74-106); SODIUM (NA) 131 MEQ/L (136-145)
[2017-01-30 11:48] LABS: ALKALINE PHOSPHATASE 107 U/L (45-117); TOTAL BILIRUBIN ADULT 0.7 MG/DL (0.2-1.0); TOTAL PROTEIN 7.2 GM/DL (6.4-8.2)
[2017-01-30] MEDS ORDERED: GADODIAMIDE PF 287 MG/ML 5 ML VIAL (for RAD MRI) IVCONTRAST ONE (13:01)
--- NOTE | 2017-01-30 13:18 | RADRPT ---
EXAM DATE/TIME: 01/30/2017 12:14 [facility] COMPARISON: No previous studies available for comparison. INDICATIONS : Loss of bowel and bladder on Myke after interventional pain procedure. CONTRAST: 15 cc Omniscan (gadodiamide) IV MEDICAL HISTORY : Carcinoma, breast. Diabetes mellitus type 2. Hypertension. SURGICAL HISTORY : Hysterectomy. Appendectomy. Cholecystectomy. ENCOUNTER: Subsequent ACUITY: 4-6 days PAIN SCORE: 4/10 LOCATION: lower back TECHNIQUE: Multiplanar multisequence MRI of the lumbar spine was performed with and without contrast. FINDINGS: The most caudal appearing lumbar vertebra is numbered as L5. VERTEBRAE: Extensive degenerative changes are noted with discogenic changes at L2-L3. CONUS: Normal level and configuration. T12-L1: The thecal sac has a normal diameter. No evidence of disc bulge or protrusion. The neural foramina are patent bilaterally. L1-L2: Minimal stenosis is present with mild degenerative changes in the facets. L2-L3: Moderate stenosis is present the ligamentous hypertrophy and degenerative changes in the facets. L3-L4: Moderate spinal stenosis is present with bilateral foraminal encroachment. Stenosis is bony. L4-L5: Bulging is present with bilateral foraminal encroachment. Mild stenosis is evident. Moderate degene rative changes in the facets. L5-S1: Moderate facet changes with minimal bilateral foraminal encroachment. There is no abnormal contrast enhancement I do not see hematoma. 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 I do not see evidence for hematoma. No significant impingement is at the tip of the conus at L2-L3. Noel Downs MD FACR on January 30, 2017 at 13:12 Board Certified Radiologist. This report was verified electronically.
[2017-01-30 14:32] VITALS: BP 166/92; PULSE 79; RESP 18; O2SAT 99
[2017-01-30 15:02] LABS: BACTERIA, URINE MANY /hpf; BILIRUBIN, URINE NEG (NEG); BLOOD, URINE NEG (NEG); GLUCOSE,URINE NEG (NEG); KETONE, URINE NEG (NEG); NITRITE,URINE POS (NEG); SQUAMOUS EPITHELIAL CELL URINE 2 /hpf (0-5); URINE COLOR YELLOW (YELLW/STRAW); URINE LEUKOCYTE ESTERASE NEG (NEG)
[2017-01-30] MEDS ORDERED: CEPH-460 PO (15:10)
--- NOTE | 2017-01-30 15:10 | PD ---
HPI Chief Complaint: GI Complaint Time Seen by Provider: 10:43 Travel History International Travel<30 days: No Contact w/Intl Traveler<30days: No Traveled to known affect area: No PFSH Past Medical History Hx Anticoagulant Therapy: No Anemia: Yes Arthritis: Yes Asthma: No Autoimmune Disease: No Blood Disorders: No Anxiety: No Depression: No Heart Rhythm Problems: No Cancer: Yes (Leukemia, breast ) Cardiac Catheterization: Yes Cardiovascular Problems: Yes High Cholesterol: Yes Chemotherapy: Yes Chest Pain: Yes Congestive Heart Failure: Yes COPD: No Cerebrovascular Accident: Yes (TIA X's 2) Diabetes: Yes Patient Takes Glucophage: Yes Diminished Hearing: No Endocrine: Yes Gastrointestinal Disorders: No GERD: Yes Genitourinary: Yes (Bladder prolapse, fibroid ) Headaches: Yes Hepatitis: No Hiatal Hernia: No Hypertension: Yes Immune Disorder: No Implanted Vascular Access Dvce: No Kidney Stones: No Musculoskeletal: Yes (Back, hip) Neurologic: No Psychiatric: No Reproductive: No Respiratory: Yes Migraines: No Radiation Therapy: No Renal Failure: No Seizures: No Shingles: Yes Sleep Apnea: No Thyroid Disease: Yes Ulcer: No Tetanus Vaccination: < 5 Years Influenza Vaccination: Yes Menopausal: Yes : 2 Para: 2 Tubal Ligation: Yes Past Surgical History Abdominal Surgery: Yes AICD: No Appendectomy: Yes Arteriovenous Shunt: No Cardiac Surgery: No Section: Yes Cholecystectomy: Yes Coronary Stent: Yes Ear Surgery: No Endocrine Surgery: No Eye Surgery: Yes (Cataract Rt. eye ) Genitourinary Surgery: Yes (Bladder, prolapse ) Gynecologic Surgery: Yes (PARTIAL HYSTERECTOMY, C SECTION) Hysterectomy: Yes (Partial ) Insulin Pump: No Joint Replacement: No Mastectomy: Yes (Rt. breast BX) Neurologic Surgery: No Oral Surgery: No Pacemaker: No Thoracic Surgery: Yes (back) Other Surgery: Yes (blood clot in lung, breast lump biopsy(CA)) Social History Alcohol Use: No Tobacco Use: No Substance Use: No Allergies-Medications (Allergen,Severity, Reaction): Coded Allergies: Sulfa (Sulfonamide Antibiotics) (Unverified Allergy, Severe, Facial swelling, 01/30/17) codeine (Unverified Adverse Reaction, Severe, Heart races, 01/30/17) Reported Meds & Prescriptions Reported Meds & Active Scripts Active Keflex (Cephalexin) 500 Mg Cap 500 Mg PO Q6H 7 Days Ativan (Lorazepam) 1 Mg Tab 1 Mg PO HS PRN [place] (Hydrocodone-Acetaminophen) 5-325 mg Tab 1 Tab PO Q6H PRN Cipro (Ciprofloxacin HCl) 500 Mg Tab 500 Mg PO BID 3 Days [place] (Hydrocodone-Acetaminophen) 5-325 mg Tab 1 Tab PO Q6H PRN Flexeril (Cyclobenzaprine HCl) 5 Mg Tab 5 Mg PO TID 5 Days Potassium Chloride Microencaps 20 Meq Tab 20 Meq PO DAILY Metoprolol Tartrate 25 Mg Tab 25 Mg PO Q12HR Metformin (Metformin HCl) 1,000 Mg Tab 1,000 Mg PO BIDPC resume on 02/26/16 Reported Vitamin B-12 (Cyanocobalamin) 500 Mcg Tab 500 Mcg PO DAILY Tizanidine (Tizanidine HCl) 4 Mg Cap 4 Mg PO HS Furosemide 40 Mg Tab 40 Mg PO DAILY Calcium 500 +D (Calcium Carbonate-Cholecalciferol) 500-400 Mg-Unit Tab 2 Tab PO DAILY Atorvastatin (Atorvastatin Calcium) 80 Mg Tab 80 Mg PO HS Amaryl (Glimepiride) 4 Mg Tab 4 Mg PO BID Take with breakfast or first main meal Lorazepam 1 Mg Tab 1 Mg PO HS PRN Amitriptyline (Amitriptyline HCl) 10 Mg Tab 10 Mg PO HS Tasigna (Nilotinib) 150 Mg Cap 150 Mg PO Q12H Take on empty stomach Losartan (Losartan Potassium) 50 Mg Tab 50 Mg PO Q12HR Levothyroxine (Levothyroxine Sodium) 125 Mcg Tab 125 Mcg PO DAILY Data Data Last Documented VS Orders Orders Complete Blood Count With Diff (01/30/17 10:58) Comprehensive Metabolic Panel (01/30/17 10:58) Prothrombin Time / Inr (Pt) (01/30/17 10:58) Act Partial Throm Time (Ptt) (01/30/17 10:58) Urinalysis - C+S If Indicated (01/30/17 10:58) Iv Access Insert/Monitor (01/30/17 10:58) Ecg Monitoring (01/30/17 10:58) Oximetry (01/30/17 10:58) Sodium Chloride 0.9% Flush (Ns Flush) (01/30/17 11:00) Sodium Chlorid 0.9% 500 Ml Inj (Ns 500 M (01/30/17 11:00) Mri L Spine W&W/O Contrast (01/30/17 ) Gadodiamide Pf Inj (Omniscan Pf Inj) (01/30/17 13:01) Urine Culture (01/30/17 14:35) Ed Discharge Order (01/30/17 15:07) Labs Laboratory Tests Test 01/30/17 10:45 01/30/17 14:35 White Blood Count 10.7 TH/MM3 Red Blood Count 3.57 MIL/MM3 Hemoglobin 10.3 GM/DL Hematocrit 31.2 % Mean Corpuscular Volume 87.3 FL Mean Corpuscular Hemoglobin 28.9 PG Mean Corpuscular Hemoglobin Concent 33.1 % Red Cell Distribution Width 20.0 % Platelet Count 274 TH/MM3 Mean Platelet Volume 9.9 FL Neutrophils (%) (Auto) 82.1 % Lymphocytes (%) (Auto) 10.9 % Monocytes (%) (Auto) 6.6 % Eosinophils (%) (Auto) 0.2 % Basophils (%) (Auto) 0.2 % Neutrophils # (Auto) 8.8 TH/MM3 Lymphocytes # (Auto) 1.2 TH/MM3 Monocytes # (Auto) 0.7 TH/MM3 Eosinophils # (Auto) 0.0 TH/MM3 Basophils # (Auto) 0.0 TH/MM3 CBC Comment DIFF FINAL Differential Comment Prothrombin Time 10.7 SEC Prothromb Time International Ratio 1.1 RATIO Activated Partial Thromboplast Time 24.2 SEC Blood Urea Nitrogen 16 MG/DL Creatinine 0.75 MG/DL Random Glucose 287 MG/DL Total Protein 7.2 GM/DL Albumin 4.1 GM/DL Calcium Level 9.1 MG/DL Alkaline Phosphatase 107 U/L Aspartate Amino Transf (AST/SGOT) 36 U/L Alanine Aminotransferase (ALT/SGPT) 71 U/L Total Bilirubin 0.7 MG/DL Sodium Level 131 MEQ/L Potassium Level 4.6 MEQ/L Chloride Level 101 MEQ/L Carbon Dioxide Level 21.0 MEQ/L Anion Gap 9 MEQ/L Estimat Glomerular Filtration Rate 73 ML/MIN Urine Color YELLOW Urine Turbidity HAZY Urine pH 6.0 Urine Specific [place] 1.011 Urine Protein TRACE mg/dL Urine Glucose (UA) NEG mg/dL Urine Ketones NEG mg/dL Urine Occult Blood NEG Urine Nitrite POS Urine Bilirubin NEG Urine Urobilinogen LESS THAN 2.0 MG/DL Urine Leukocyte Esterase NEG Urine WBC 2 /hpf Urine Squamous Epithelial Cells 2 /hpf Urine Bacteria MANY /hpf Microscopic Urinalysis Comment CULTURE INDICATED MDM Medical Decision Making Medical Screen Exam Complete: Yes Emergency Medical Condition: Yes Diagnosis Primary Impression: UTI (urinary tract infection) Qualified Codes: N39.0 - Urinary tract infection, site not specified Med/Other Pt SpecificInfo: Prescription(s) given Scripts Cephalexin (Keflex) 500 Mg Cap 500 MG PO Q6H for Infection for 7 Days, #28 CAP 0 Refills Prov: Mika Bertrand MD 01/30/17 Disposition: 01 DISCHARGE HOME Condition: Stable Mika Bertrand MD Jan 30, 2017 15:10
== END 2017-01-30 16:18 | disposition home or self-care (01) ==
LOC: NEPC 10:32
DX: N39.0 Urinary tract infection, site not specified (principal); B96.89 Other specified bacterial agents as the cause of diseases classified elsewhere; M54.9 Dorsalgia, unspecified; I11.0 Hypertensive heart disease with heart failure; I50.9 Heart failure, unspecified; E78.00 Pure hypercholesterolemia, unspecified; E11.9 Type 2 diabetes mellitus without complications; K21.9 Gastro-esophageal reflux disease without esophagitis; Z79.84 Long term (current) use of oral hypoglycemic drugs
CPT/HCPCS: 72158; 80053; 81001; 85025; 85610; 85730; 87086; 96360; 99285; A9579; J7040

== ENCOUNTER 2017-04-19 13:13 | Observation (INO) | payer MEDICARE ==
[~2017-04-19] VITALS: Ht 161.3 cm; Wt 74.4 kg
[2017-04-19] VITALS (8 sets, daily range): BP systolic 136–172; BP diastolic 62–97; PULSE 78–109; RESP 16–20; TEMP 96.2–98.5; O2SAT 93–100
[~2017-04-19 13:13] MED LIST changes: +CEPH-460 PO
[2017-04-19 14:06] LABS: CHLORIDE 98 MEQ/L (98-107); SODIUM (NA) 133 MEQ/L (136-145)
[2017-04-19 14:09] LABS: ALBUMIN 3.8 GM/DL (3.4-5.0); BICARBONATE 25.8 MEQ/L (21.0-32.0); CALCIUM 9.2 MG/DL (8.5-10.1); GLUCOSE,RANDOM 279 MG/DL (74-106)
[2017-04-19 14:10] LABS: BLOOD UREA NITROGEN 17 MG/DL (7-18)
[2017-04-19 14:12] LABS: ALT (GPT) 41 U/L (10-53); AST (GOT) 26 U/L (15-37); CREATININE 0.68 MG/DL (0.50-1.00); GLOMERULAR FILTRATION RATE 82 ML/MIN (>89)
[2017-04-19 14:14] LABS: TOTAL BILIRUBIN ADULT 0.3 MG/DL (0.2-1.0); TOTAL PROTEIN 7.4 GM/DL (6.4-8.2)
[2017-04-19 14:15] LABS: ALKALINE PHOSPHATASE 105 U/L (45-117)
[2017-04-19 14:17] LABS: TROPONIN I LESS THAN 0.02 NG/ML (0.02-0.05)
[2017-04-19 14:18] LABS: BILIRUBIN, URINE NEG (NEG); BLOOD, URINE NEG (NEG); GLUCOSE,URINE 100 mg/dL (NEG); KETONE, URINE NEG (NEG); NITRITE,URINE NEG (NEG); URINE COLOR YELLOW (YELLW/STRAW); URINE LEUKOCYTE ESTERASE NEG (NEG)
[2017-04-19 14:18] LABS: AUTOMATED NEUTROPHIL # 8.6 TH/MM3 (1.8-7.7); BASOPHIL # 0.1 TH/MM3 (0-0.2); BASOPHIL % 1.3 % (0.0-2.0); EOSINOPHIL % 0.4 % (0.0-4.0); HEMATOCRIT 24.6 % (35.0-46.0); HEMOGLOBIN 8.4 GM/DL (11.6-15.3); LYMPH % 14.1 % (9.0-44.0); LYMPHOCYTE # 1.5 TH/MM3 (1.0-4.8); MEAN CELL VOLUME 87.7 FL (80.0-100.0); MEAN CORPUSCULAR HGB CONC 34.2 % (32.0-36.0); MEAN PLATELET VOLUME 9.6 FL (7.0-11.0); MONO % 7.3 % (0.0-8.0); MONOCYTE # 0.8 TH/MM3 (0-0.9); NEUT % 76.9 % (16.0-70.0); PLATELET COUNT 258 TH/MM3 (150-450); RED CELL DISTRIBUTION WIDTH 17.3 % (11.6-17.2); WHITE BLOOD COUNT 10.9 TH/MM3 (4.0-11.0)
[2017-04-19 14:46] LABS: MUCUS URINE RARE /lpf (OCC)
--- NOTE | 2017-04-19 14:46 | RADRPT ---
EXAM DATE/TIME: 04/19/2017 14:14 [facility] COMPARISON: CHEST SINGLE AP, October 03, 2016, 17:34. INDICATIONS : Patient states she had an iron infusion 3 days ago and now complains of shortness of breath. MEDICAL HISTORY : Leukemia. SURGICAL HISTORY : CABG. ENCOUNTER: Initial ACUITY: 3 days PAIN SCORE: 0/10 LOCATION: Bilateral chest FINDINGS: The heart is enlarged. The lungs demonstrate a 5 mm calcified granuloma at the left lung base. There are bronchiectatic changes in both lower lobes. The lungs are otherwise clear. The osseous structures are grossly intact. The exam is similar to previous dated 10/03/16. CONCLUSION: 1. Moderate cardiomegaly. Stable compared to previous. Jonathon Downs MD on April 19, 2017 at 14:38 Board Certified Radiologist. This report was verified electronically.
[2017-04-19 14:47] LABS: WHITE BLOOD CELL CLUMPS RARE
[2017-04-19 14:48] LABS: BACTERIA, URINE RARE /hpf; RBC, URINE 0-3 /hpf (0-3); SQUAMOUS EPITHELIAL CELL URINE 0-5 /hpf (0-5); TRANSITIONAL EPI CELLS, URINE 0-5 /hpf
[2017-04-19] MEDS ORDERED: SODIUM CHLOR 0.9% 250 ML INJ 250 ML IV ONE (15:30)
--- NOTE | 2017-04-19 15:34 | PD ---
HPI Chief Complaint: Respiratory Symptoms Time Seen by Provider: 13:41 Travel History International Travel<30 days: No Contact w/Intl Traveler<30days: No Traveled to known affect area: No History of Present Illness HPI This is a 86-year-old female who presents to the ER complaining of chest pain shortness of breath. Patient is a history of CML and was receiving iron transfusion couple days ago and states that she started having shortness of breath right after that. Denies any sweating or palpitations. Patient states that pain is 3 out of 10 comes and goes located in the mid chest no radiation nothing makes it better or worse. Patient has chronic anemia and has been treated for with Dr. Correa movie extra. PFSH Past Medical History Hx Anticoagulant Therapy: No Anemia: Yes Arthritis: Yes Asthma: No Autoimmune Disease: No Blood Disorders: No Anxiety: No Depression: No Heart Rhythm Problems: No Cancer: Yes (Leukemia, breast ) Cardiac Catheterization: Yes Cardiovascular Problems: Yes High Cholesterol: Yes Chemotherapy: Yes Chest Pain: Yes Congestive Heart Failure: Yes COPD: No Cerebrovascular Accident: Yes (TIA X's 2) Diabetes: Yes Patient Takes Glucophage: Yes (THIS MORNING) Diminished Hearing: No Endocrine: Yes Gastrointestinal Disorders: No GERD: Yes Genitourinary: Yes (Bladder prolapse, fibroid ) Headaches: Yes Hepatitis: No Hiatal Hernia: No Hypertension: Yes Immune Disorder: No Implanted Vascular Access Dvce: No Kidney Stones: No Musculoskeletal: Yes (Back, hip) Neurologic: No Psychiatric: No Reproductive: No Respiratory: Yes Immunizations Current: Yes (UTD) Migraines: No Radiation Therapy: No Renal Failure: No Seizures: No Shingles: Yes Sleep Apnea: No Thyroid Disease: Yes Ulcer: No Influenza Vaccination: Yes ?: Not Menopausal: Yes : 2 Para: 2 Tubal Ligation: Yes Past Surgical History Abdominal Surgery: Yes AICD: No Appendectomy: Yes Arteriovenous Shunt: No Cardiac Surgery: No Section: Yes Cholecystectomy: Yes Coronary Stent: Yes Ear Surgery: No Endocrine Surgery: No Eye Surgery: Yes (Cataract Rt. eye ) Genitourinary Surgery: Yes (Bladder, prolapse ) Gynecologic Surgery: Yes (PARTIAL HYSTERECTOMY, C SECTION) Hysterectomy: Yes (Partial ) Insulin Pump: No Joint Replacement: No Mastectomy: Yes (Rt. breast BX) Neurologic Surgery: No Oral Surgery: No Pacemaker: No Thoracic Surgery: Yes (back) Other Surgery: Yes (blood clot in lung, breast lump biopsy(CA)) Social History Alcohol Use: No Tobacco Use: No Substance Use: No Allergies-Medications (Allergen,Severity, Reaction): Coded Allergies: Sulfa (Sulfonamide Antibiotics) (Verified Allergy, Severe, Facial swelling , 04/19/17) codeine (Verified Adverse Reaction, Severe, Heart races, 04/19/17) Reported Meds & Prescriptions Reported Meds & Active Scripts Active Keflex (Cephalexin) 500 Mg Cap 500 Mg PO Q6H 7 Days Ativan (Lorazepam) 1 Mg Tab 1 Mg PO HS PRN [place] (Hydrocodone-Acetaminophen) 5-325 mg Tab 1 Tab PO Q6H PRN Cipro (Ciprofloxacin HCl) 500 Mg Tab 500 Mg PO BID 3 Days [place] (Hydrocodone-Acetaminophen) 5-325 mg Tab 1 Tab PO Q6H PRN Flexeril (Cyclobenzaprine HCl) 5 Mg Tab 5 Mg PO TID 5 Days Potassium Chloride Microencaps 20 Meq Tab 20 Meq PO DAILY Metoprolol Tartrate 25 Mg Tab 25 Mg PO Q12HR Metformin (Metformin HCl) 1,000 Mg Tab 1,000 Mg PO BIDPC resume on 02/26/16 Reported Vitamin B-12 (Cyanocobalamin) 500 Mcg Tab 500 Mcg PO DAILY Tizanidine (Tizanidine HCl) 4 Mg Cap 4 Mg PO HS Furosemide 40 Mg Tab 40 Mg PO DAILY Calcium 500 +D (Calcium Carbonate-Cholecalciferol) 500-400 Mg-Unit Tab 2 Tab PO DAILY Atorvastatin (Atorvastatin Calcium) 80 Mg Tab 80 Mg PO HS Amaryl (Glimepiride) 4 Mg Tab 4 Mg PO BID Take with breakfast or first main meal Lorazepam 1 Mg Tab 1 Mg PO HS PRN Amitriptyline (Amitriptyline HCl) 10 Mg Tab 10 Mg PO HS Tasigna (Nilotinib) 150 Mg Cap 150 Mg PO Q12H Take on empty stomach Losartan (Losartan Potassium) 50 Mg Tab 50 Mg PO Q12HR Levothyroxine (Levothyroxine Sodium) 125 Mcg Tab 125 Mcg PO DAILY Review of Systems Except as stated in HPI: all other systems reviewed are Neg Physical Exam Narrative GENERAL: Alert oriented 3 no acute distress. SKIN: Focused skin assessment warm/dry. HEAD: Atraumatic. Normocephalic. EYES: Pupils equal and round. No scleral icterus. No injection or drainage. ENT: No nasal bleeding or discharge. Mucous membranes pink and moist. NECK: Trachea midline. No JVD. CARDIOVASCULAR: Regular rate and rhythm. No murmur appreciated. RESPIRATORY: No accessory muscle use. Clear to auscultation. Breath sounds equal bilaterally. GASTROINTESTINAL: Abdomen soft, non-tender, nondistended. Hepatic and splenic margins not palpable. MUSCULOSKELETAL: No obvious deformities. No clubbing. No cyanosis. No edema. NEUROLOGICAL: Awake and alert. No obvious cranial nerve deficits. Motor grossly within normal limits. Normal speech. PSYCHIATRIC: Appropriate mood and affect; insight and judgment normal. Data Data Last Documented VS Vital Signs Date Time Temp Pulse Resp B/P (MAP) Pulse Ox O2 Delivery O2 Flow Rate FiO2 04/19/17 15:15 87 16 136/97 (110) 99 Nasal Cannula 2.00 04/19/17 13:20 98.3 Orders Orders Chest, Pa & Lat (04/19/17 ) D-Dimer (04/19/17 13:41) Troponin I (04/19/17 13:41) Urinalysis - C+S If Indicated (04/19/17 13:41) Comprehensive Metabolic Panel (04/19/17 13:41) Complete Blood Count With Diff (04/19/17 13:41) B-Type Natriuretic Peptide (04/19/17 13:41) Urine Culture (04/19/17 14:15) Electrocardiogram (04/19/17 ) Red Blood Cells (Rbc) (04/19/17 15:21) Blood Product Administration .UPON TRANSFUSION (04/19/17 15:21) Sodium Chlor 0.9% 250 Ml Inj (Ns 250 Ml (04/19/17 15:30) Type And Screen (04/19/17 15:21) Admit Order (Ed Use Only) (04/19/17 15:21) Labs Laboratory Tests Test 04/19/17 13:50 04/19/17 14:15 White Blood Count 10.9 TH/MM3 Red Blood Count 2.80 MIL/MM3 Hemoglobin 8.4 GM/DL Hematocrit 24.6 % Mean Corpuscular Volume 87.7 FL Mean Corpuscular Hemoglobin 30.0 PG Mean Corpuscular Hemoglobin Concent 34.2 % Red Cell Distribution Width 17.3 % Platelet Count 258 TH/MM3 Mean Platelet Volume 9.6 FL Neutrophils (%) (Auto) 76.9 % Lymphocytes (%) (Auto) 14.1 % Monocytes (%) (Auto) 7.3 % Eosinophils (%) (Auto) 0.4 % Basophils (%) (Auto) 1.3 % Neutrophils # (Auto) 8.6 TH/MM3 Lymphocytes # (Auto) 1.5 TH/MM3 Monocytes # (Auto) 0.8 TH/MM3 Eosinophils # (Auto) 0.0 TH/MM3 Basophils # (Auto) 0.1 TH/MM3 CBC Comment DIFF FINAL Differential Comment D-Dimer Quantitative (PE/DVT) 0.28 MG/L FEU Blood Urea Nitrogen 17 MG/DL Creatinine 0.68 MG/DL Random Glucose 279 MG/DL Total Protein 7.4 GM/DL Albumin 3.8 GM/DL Calcium Level 9.2 MG/DL Alkaline Phosphatase 105 U/L Aspartate Amino Transf (AST/SGOT) 26 U/L Alanine Aminotransferase (ALT/SGPT) 41 U/L Total Bilirubin 0.3 MG/DL Sodium Level 133 MEQ/L Potassium Level 4.7 MEQ/L Chloride Level 98 MEQ/L Carbon Dioxide Level 25.8 MEQ/L Anion Gap 9 MEQ/L Estimat Glomerular Filtration Rate 82 ML/MIN Troponin I LESS THAN 0.02 NG/ML B-Type Natriuretic Peptide 986 PG/ML Urine Color YELLOW Urine Turbidity CLEAR Urine pH 5.0 Urine Specific [place] LESS/EQUAL 1.005 Urine Protein NEG mg/dL Urine Glucose (UA) 100 mg/dL Urine Ketones NEG mg/dL Urine Occult Blood NEG Urine Nitrite NEG Urine Bilirubin NEG Urine Urobilinogen 0.2 MG/DL Urine Leukocyte Esterase NEG Urine RBC 0-3 /hpf Urine WBC 3-5 /hpf Urine WBC Clumps RARE Urine Squamous Epithelial Cells 0-5 /hpf Urine Transitional Epithelial Cells 0-5 /hpf Urine Bacteria RARE /hpf Urine Mucus RARE /lpf Microscopic Urinalysis Comment CULTURE INDICATED MDM Medical Decision Making Medical Screen Exam Complete: Yes Emergency Medical Condition: Yes Differential Diagnosis Pneumonia, pneumothorax, anemia. Narrative Course This is an 86-year-old female with history of CML. here for shortness of breath. Patient has iron deficiency anemia chronically, labs shows hemoglobin of 8.4 chest x-ray is unremarkable EKG shows T-wave inversion on V2 and V3 troponin is a negative. I spoke with Dr. Correa and he recommended 1 unit of blood transfusion since hemoglobin 8.4 is considered low for her. I agree with the plan of care since also patient has tachycardia. I believe patient would benefit from a 23 hour observation here to repeat troponin level and EKG to make sure there is no cardiac origin for this chest pain since patient has multiple risk factors including diabetes, CHF, hypertension. Diagnosis Primary Impression: Chest pain Qualified Codes: R07.1 - Chest pain on breathing Additional Impression: Anemia Qualified Codes: D50.0 - Iron deficiency anemia secondary to blood loss ( chronic) Admitting Information Admitting Physician Requests: Admit Condition: Stable Daniel Fay MD Apr 19, 2017 15:34
[2017-04-19] MEDS ORDERED: SODIUM CHLORIDE 0.9% FLUSH 10 ML FLUSH IV FLUSH PRN (17:15)
[2017-04-19] MEDS ORDERED: ONDANSETRON HCL 4 MG/2 ML VIAL IV PUSH PRN (17:15)
[2017-04-19] MEDS ORDERED: LORazepam 1 MG TAB PO PRN (18:30)
[2017-04-19] MEDS ORDERED: DEXTROSE 50% IN WATER 50 ML VIAL(D50) IV PUSH PRN (18:45)
[2017-04-19] MEDS ORDERED: GLUCAGON 1 MG/ML VIAL OTHER PRN (18:45)
[2017-04-19] MEDS ORDERED: PILL SPLITTER OTHER PRN (19:00)
[2017-04-19 19:25] LABS: TROPONIN I 0.02 NG/ML (0.02-0.05)
[2017-04-19] MEDS: SODIUM CHLORIDE 0.9% FLUSH 10 ML FLUSH IV FLUSH SCH (20:39)
[2017-04-19] MEDS ORDERED: AMITRIPTYLINE HCL 10 MG TAB PO SCH (21:00)
[2017-04-19] MEDS: INSULIN ASPART SUPPLEMENTAL SCALE SQ SCH (21:00)
[2017-04-19] MEDS ORDERED: NILOTINIB 150 MG PO SCH (21:00)
[2017-04-19] MEDS ORDERED: ATORVASTATIN 40 MG TAB PO SCH (21:00)
[2017-04-19] MEDS: LOSARTAN 50 MG TAB PO SCH (22:00)
[2017-04-19] MEDS: METOPROLOL TARTRATE 25 MG TAB PO SCH (22:04)
[2017-04-19 22:10] LABS: TROPONIN I 0.02 NG/ML (0.02-0.05)
[2017-04-19] MEDS: GLIMEPIRIDE 4 MG TAB PO SCH (22:40)
[2017-04-19] MEDS ORDERED: FUROSEMIDE 20 MG/2 ML VIAL IV PUSH ONE (23:15)
[2017-04-20] VITALS (7 sets, daily range): BP systolic 145–179; BP diastolic 71–79; PULSE 75–89; RESP 18–20; TEMP 96.8–98.5; O2SAT 93–100
[2017-04-20] MEDS ORDERED: LEVOTHYROXINE SODIUM 125 MCG TAB PO SCH (06:00)
[2017-04-20] MEDS ORDERED: POTASSIUM CHLORIDE 20 MEQ CONTROLLED RELEASE TAB PO SCH (09:00)
[2017-04-20] MEDS ORDERED: CALCIUM/VITAMIN D 250 MG/125 U TAB PO SCH ×2 (09:00→12:00)
[2017-04-20] MEDS ORDERED: FUROSEMIDE 20 MG TAB PO SCH (09:00)
[2017-04-20] MEDS ORDERED: CYANOCOBALAMIN 1,000 MCG TAB PO SCH (09:00)
[2017-04-20] MEDS: LOSARTAN 50 MG TAB PO SCH (09:19)
[2017-04-20] MEDS: METOPROLOL TARTRATE 25 MG TAB PO SCH (09:19)
[2017-04-20] MEDS: GLIMEPIRIDE 4 MG TAB PO SCH (09:19)
--- NOTE | 2017-04-20 09:27 | MH ---
cc: Claribel Rosado MD DATE OF ADMISSION: 04/19/2017 REASON FOR ADMISSION: Anemia, chest pain. HISTORY OF PRESENT ILLNESS: The patient is a very pleasant 86-year-old female who states that on Monday, she had an iron transfusion at her [employer]. She does have chronic iron deficiency and she tells me like maybe twice a year she will require an iron transfusion. She says right after the transfusion she started developing chest pain. She thinks the transfusion may have been a little bit faster than normally. She says she is transfused over 8 hours, this time it was over 6 hours. She does not know there is a relationship with that, but she does say that almost immediately she started developing chest pain, retrosternal, that persisted when she got home and throughout the night. She says she kept on taking Gaviscon the entire night, hoping that would relieve the pain. By the time she woke up in the morning, she no longer had the chest discomfort. She did say, however, she started developing shortness of breath that persisted until she came to the emergency room and that is actually what brought her to the emergency room. She says once they placed her on oxygen, she felt significantly better. Aside from this, she said she has been doing very well for herself. She had a good weekend. She has not had any new problems aside from her chronic health issues. She doses have a history of aortic stenosis and does follow with a metalsmith apprentice and is actually scheduled to be seeing him later this month. Currently, she is undergoing treatment for low back pain. She did say she had an injection on Monday and did well with that. She is no longer having any of the back pain as a presenting problem. She does have a history of diabetes, hypertension, hyperlipidemia. PAST MEDICAL HISTORY: Includes CML for which she follows with Dr. Correa as well and she is on Tasigna. She has a past history of breast cancer and had a lumpectomy. She does have a prior history of congestive heart failure and has had prior admissions for this. As stated, she has the hyperlipidemia and the type 2 diabetes. She tells me that they are going to be giving her insulin teaching tomorrow. She has a history of lumbar stenosis and back pain, as stated. She does have a past medical history significant for aortic stenosis that is being followed closely with Cardiology. They are determining whether or not she may be needing and is a candidate for a TABR. On her last admission, she had an ejection fraction range and an echocardiogram that was done. She had an ejection fraction in the range of 30-35%, with global left ventricular dysfunction. There was moderate aortic valve stenosis at that time, with moderate to severe tricuspid valve regurgitation and pulmonary hypertension at 74 millimeters of mercury. She has the iron deficiency as well, which is, as stated, followed by Dr. Correa. PAST SURGICAL HISTORY: Includes PTCA, , cholecystectomy, back surgery. She has got the left breast lumpectomy and she has had a total abdominal hysterectomy. ALLERGIES: ARE TO SULFA AND CODEINE. MEDICATIONS AT HOME: Include Tasigna 150 milligrams twice a day, tizanidine 4 milligrams at bedtime as needed, atorvastatin 80 milligrams daily, metoprolol 25 milligrams twice a day, losartan 50 milligrams twice a day, hydrocodone 5/325 every 6 hours as needed, amitriptyline 10 milligrams at bedtime for foot cramps, lorazepam 1 milligrams by mouth at bedtime as needed for anxiety or insomnia, calcium carbonate and potassium chloride 20 milliequivalents daily, furosemide 60 milligrams in the morning, metformin 1000 milligrams twice a day, glimepiride 4 milligrams twice a day, levothyroxine 125 micrograms daily and vitamin B12 once a day. HABITS: She rarely consumes alcohol. She no longer smokes. She stopped approximately 50 years ago. SOCIAL HISTORY: She is retired. She lives with her at [facility]. He was just recently here, left here for the evening. She uses a front-wheeled walker for steadiness at times. FAMILY HISTORY: Noncontributory. See History of Present Illness. REVIEW OF SYSTEMS: She denies any fevers, chills, cough. She has had no shortness of breath until this started on Monday morning. She had the chest pain overnight, Monday night to Monday. She denies any palpitations. No lightheadedness. She has not had any stomach problems or change in bowel function. She does state she has urinary frequency and at times is incontinent. She does have lower extremity swelling at little at times on her right leg. She says her left leg is her bad leg. She is not able to use it as well when she walks. She does have significant back pain, however, she says that ever since she has been getting her injections in her back starting in January, this is improved so that she is comfortable at present. PHYSICAL EXAMINATION: VITAL SIGNS: Temperature is 96.7, pulse of 109, respirations 20, blood pressure is 169/71, pulse oximetry on 2 liters is 92%. GENERAL: She is lying on the hospital bed. She is very pleasant, alert and conversant. Does not appear to be in any acute distress. She is wearing her glasses. HEENT: She is normocephalic, atraumatic. EOM is intact. She has got moist oral mucosa. NECK: Supple. I hear no bruits. CARDIOVASCULAR: Her lungs are clear to auscultation bilaterally. She has no rhonchi, rales or wheezes. Her heart when I listen was regular. I really did not hear any significant murmurs. ABDOMEN: Has good bowel sounds in all 4 quadrants. No rebound or guarding. EXTREMITIES: Showed just trace edema on the right. No real edema on the left. LABORATORY DATA: Work that was done showed a white count of 10.9, hemoglobin of 8.4, with hematocrit of 24.6, platelet count of 258. Sodium was 133, potassium 4.7, BUN was 17, with a creatinine of 0.68, her random glucose was 279. LFTs were normal. Troponin was less than 0.02. She did have a BNP of 986. Her D-dimer was 0.28. Her urine showed some glucose and they said a culture was indicated and that is pending. IMAGING: Chest x-ray was done and this shows that she had some cardiomegaly and a 5 millimeter calcified granuloma of the left lung base that is stable. Bronchiectatic changes in both lower lobes. Otherwise, the lungs were clear. ASSESSMENT AND PLAN: 1. This 86-year-old female presented to the emergency room after chest pain and shortness of breath after an iron infusion 2 days ago. Per the emergency room doctor, he spoke to Dr. Correa, who recommended the patient be transfused 1 unit of blood, as her hemoglobin and hematocrit are lower than she typically runs and this may be contributing factor to her symptomatology, so we have admitted her. We will go ahead and transfuse her and consult Dr. Correa. 2. Possible congestive heart failure. She is short of breath and her brain natriuretic peptide is elevated. She does have cardiomegaly. At this point, I am not so sure that her shortness of breath is from volume overload. She is going to get an unit of blood tonight and given her history of low ejection fraction, I will probably give her a little bit of additional diuretics. For her aortic stenosis, she is scheduled to see Dr. Andre later on this month on followup of her aortic stenosis. We did discuss that some of her symptoms may be secondary to this, that is something we will have to monitor to determine how she does after the transfusion. 3. For her diabetes, we will continue her on the sliding scale and a diabetic diet. She does seem to have perhaps a small urinary tract infection. Until we have more information on the culture, I will go ahead and give her a dose of Rocephin. Otherwise, we will continue the rest of her home medications. Further recommendations as the case develops. Claribel Rosado MD [facility]/MAR[facility] , 06:53 PM , 07:38 PM
[2017-04-20] MEDS: INSULIN ASPART SUPPLEMENTAL SCALE SQ SCH ×2 (09:32→12:00)
[2017-04-20] MEDS: SODIUM CHLORIDE 0.9% FLUSH 10 ML FLUSH IV FLUSH SCH (09:33)
--- NOTE | 2017-04-20 12:12 | HHI.PR ---
Subjective Remarks no sob, fels she doesnt need oxygen, no chest pain, able to move around the move and breathe easily Objective Vitals Vital Signs Date Time Temp Pulse Resp B/P (MAP) Pulse Ox O2 Delivery O2 Flow Rate FiO2 04/20/17 09:18 96.8 89 18 157/74 (101) 93 04/20/17 04:00 97.5 84 20 145/79 (101) 100 04/20/17 02:15 97.5 84 20 145/79 100 04/20/17 01:15 Nasal Cannula 2.00 04/20/17 00:00 98.5 85 20 147/71 (96) 100 04/19/17 23:40 98.5 84 16 150/80 100 04/19/17 23:11 98.5 83 17 147/71 100 04/19/17 20:00 96.9 98 20 172/73 (106) 96 04/19/17 17:00 96.2 109 20 169/71 (103) 95 04/19/17 16:30 04/19/17 16:10 78 16 155/72 (99) 99 Nasal Cannula 2.00 04/19/17 15:15 87 16 136/97 (110) 99 Nasal Cannula 2.00 04/19/17 14:26 88 20 143/62 (89) 98 Nasal Cannula 2.00 04/19/17 13:50 Nasal Cannula 2.00 04/19/17 13:20 98.3 97 18 140/86 (104) 93 Result Diagram: 04/19/17 1350 04/19/17 1350 Other Results Laboratory Tests Test 04/19/17 18:45 04/19/17 21:39 04/20/17 11:30 Total Creatine Kinase 30 U/L 28 U/L Troponin I 0.02 NG/ML 0.02 NG/ML White Blood Count 10.5 TH/MM3 Red Blood Count 3.65 MIL/MM3 Hemoglobin 10.0 GM/DL Hematocrit 31.6 % Mean Corpuscular Volume 86.5 FL Mean Corpuscular Hemoglobin 27.5 PG Mean Corpuscular Hemoglobin Concent 31.8 % Red Cell Distribution Width 17.5 % Platelet Count 261 TH/MM3 Mean Platelet Volume 9.2 FL Neutrophils (%) (Auto) 81.8 % Lymphocytes (%) (Auto) 11.2 % Monocytes (%) (Auto) 6.4 % Eosinophils (%) (Auto) 0.4 % Basophils (%) (Auto) 0.2 % Neutrophils # (Auto) 8.6 TH/MM3 Lymphocytes # (Auto) 1.2 TH/MM3 Monocytes # (Auto) 0.7 TH/MM3 Eosinophils # (Auto) 0.0 TH/MM3 Basophils # (Auto) 0.0 TH/MM3 CBC Comment DIFF FINAL Differential Comment Objective Remarks Lying in bed off oxygen, good color and spirits lungs cta zachery rrr good bs trace edema of rt A/P Problem List: (1) Anemia ICD Codes: D64.9 - Anemia, unspecified Status: Chronic Plan: gets iron transfusions h/h lower then normal on presentation to ER and Hematology recommended transfusion of blood, received 1 unit post transfusion cbc pending she feels much better (2) Aortic stenosis ICD Codes: I35.0 - Nonrheumatic aortic (valve) stenosis Plan: following with Dr Andre at the end of the month no episode of chest pain or sob until she had the transfusion on monday (3) Chest pain ICD Codes: R07.9 - Chest pain, unspecified Status: Resolved Plan: she developed chest pain after receiving iron infusion on monday present all night and resolved by next am troponins have been negative she has appt with [facility] later this month, will follow up with them (4) Type 2 diabetes mellitus ICD Codes: E11.9 - Type 2 diabetes mellitus without complications Status: Chronic Plan: on sliding scale and home regimen scheduled to get insulin teaching as outpatient Assessment and Plan discharge home today Problem Qualifiers (1) Anemia: Qualified Codes: D50.0 - Iron deficiency anemia secondary to blood loss ( chronic) (2) Aortic stenosis: Qualified Codes: I35.0 - Nonrheumatic aortic (valve) stenosis (3) Chest pain: Qualified Codes: R07.1 - Chest pain on breathing Claribel Rosado MD Apr 20, 2017 12:12
[2017-04-20 12:16] LABS: AUTOMATED NEUTROPHIL # 8.6 TH/MM3 (1.8-7.7); BASOPHIL % 0.2 % (0.0-2.0); EOSINOPHIL % 0.4 % (0.0-4.0); HEMATOCRIT 31.6 % (35.0-46.0); LYMPH % 11.2 % (9.0-44.0); LYMPHOCYTE # 1.2 TH/MM3 (1.0-4.8); MEAN CELL VOLUME 86.5 FL (80.0-100.0); MEAN CORPUSCULAR HEMOGLOBIN 27.5 PG (27.0-34.0); MEAN CORPUSCULAR HGB CONC 31.8 % (32.0-36.0); MEAN PLATELET VOLUME 9.2 FL (7.0-11.0); MONO % 6.4 % (0.0-8.0); MONOCYTE # 0.7 TH/MM3 (0-0.9); NEUT % 81.8 % (16.0-70.0); PLATELET COUNT 261 TH/MM3 (150-450); RED BLOOD COUNT 3.65 MIL/MM3 (4.00-5.30); RED CELL DISTRIBUTION WIDTH 17.5 % (11.6-17.2); WHITE BLOOD COUNT 10.5 TH/MM3 (4.0-11.0)
--- NOTE | 2017-04-20 15:35 | HHI.DS ---
Discharge Summary Admission Date Apr 19, 2017 at 15:23 Admitting Diagnosis CHEST PAIN, ANEMIA. (1) Anemia ICD Codes: D64.9 - Anemia, unspecified Status: Chronic (2) Aortic stenosis Diagnosis: Secondary ICD Codes: I35.0 - Nonrheumatic aortic (valve) stenosis (3) Chest pain Diagnosis: Secondary ICD Codes: R07.9 - Chest pain, unspecified Status: Resolved (4) Type 2 diabetes mellitus Diagnosis: Secondary ICD Codes: E11.9 - Type 2 diabetes mellitus without complications Status: Chronic CBC/BMP: 04/20/17 1130 04/19/17 1350 Significant Findings Laboratory Tests Test 04/19/17 13:50 04/19/17 14:15 04/19/17 18:45 04/19/17 21:39 Red Blood Count 2.80 MIL/MM3 (4.00-5.30) Hemoglobin 8.4 GM/DL (11.6-15.3) Hematocrit 24.6 % (35.0-46.0) Red Cell Distribution Width 17.3 % (11.6-17.2) Neutrophils (%) (Auto) 76.9 % (16.0-70.0) Neutrophils # (Auto) 8.6 TH/MM3 (1.8-7.7) Random Glucose 279 MG/DL (74-106) Sodium Level 133 MEQ/L (136-145) Estimat Glomerular Filtration Rate 82 ML/MIN (>89) Troponin I LESS THAN 0.02 NG/ML B-Type Natriuretic Peptide 986 PG/ML (0-100) Urine Glucose (UA) 100 mg/dL (NEG) Urine WBC Clumps RARE (NONE) Urine Bacteria RARE /hpf (NONE) Test 04/20/17 11:30 Red Blood Count 3.65 MIL/MM3 (4.00-5.30) Hemoglobin 10.0 GM/DL (11.6-15.3) Hematocrit 31.6 % (35.0-46.0) Mean Corpuscular Hemoglobin Concent 31.8 % (32.0-36.0) Red Cell Distribution Width 17.5 % (11.6-17.2) Neutrophils (%) (Auto) 81.8 % (16.0-70.0) Neutrophils # (Auto) 8.6 TH/MM3 (1.8-7.7) PE at Discharge Lying in bed off oxygen, good color and spirits lungs cta zachery rrr good bs trace edema of rt Pt Condition on Discharge: Good Discharge Disposition: Discharge Home Discharge Instructions DIET: Follow Instructions for: Heart Healthy Diet, Diabetic Diet Activities you can perform: Regular-No Restrictions Follow up Referrals: Cardiology - 05/11/17 with Shivam Suarez MD Oncology/Hematology with Atul Correa MD PCP Follow-up - 1 Week with Richy Meza MD PhD Claribel Rosado MD Apr 20, 2017 15:35
--- NOTE | 2017-04-20 21:26 | EKG ---
Date Performed: 04/19/2017 Time Performed: 21:16:48 PTAGE: 86 years EKG: Sinus rhythm NONSPECIFIC ST & T-WAVE ABNORMALITY BORDERLINE ECG PREVIOUS TRACING : 04/19/2017 18.31 No significant change from previous tracing noted. DOCTOR: Dutch Pelaez Interpretating Date/Time 04/20/2017 21:24:11
--- NOTE | 2017-04-20 21:33 | EKG ---
Date Performed: 04/19/2017 Time Performed: 18:31:58 PTAGE: 86 years EKG: Sinus rhythm NONSPECIFIC ST & T-WAVE ABNORMALITY ABNORMAL ECG PREVIOUS TRACING : 04/19/2017 15.22 No significant change from previous tracing noted. DOCTOR: Dutch Pelaez Interpretating Date/Time 04/20/2017 21:31:57
--- NOTE | 2017-04-20 21:40 | EKG ---
Date Performed: 04/19/2017 Time Performed: 15:22:38 PTAGE: 86 years EKG: Sinus rhythm WITH SINUS ARRHYTHMIA NONSPECIFIC ST & T-WAVE ABNORMALITY ABNORMAL ECG PREVIOUS TRACING : 10/03/2016 17.29 No significant change from previous tracing noted. DOCTOR: Dutch Pelaez Interpretating Date/Time 04/20/2017 21:38:55
== END 2017-04-20 16:29 | disposition home or self-care (01) ==
LOC: PHED 13:13 → PHEDA 15:23 → PH3B 16:35
PROVIDERS: ADMIT Legal Medicine; ATTEND Legal Medicine
DX: R07.89 Other chest pain (principal); R06.02 Shortness of breath; M54.5 Low back pain; D50.0 Iron deficiency anemia secondary to blood loss (chronic); R07.1 Chest pain on breathing; I35.0 Nonrheumatic aortic (valve) stenosis; I07.1 Rheumatic tricuspid insufficiency; I27.20 Pulmonary hypertension, unspecified; I49.9 Cardiac arrhythmia, unspecified; R94.31 Abnormal electrocardiogram [ECG] [EKG]; I11.0 Hypertensive heart disease with heart failure; I50.9 Heart failure, unspecified; E78.00 Pure hypercholesterolemia, unspecified; E11.9 Type 2 diabetes mellitus without complications; E07.9 Disorder of thyroid, unspecified; K21.9 Gastro-esophageal reflux disease without esophagitis; M19.90 Unspecified osteoarthritis, unspecified site; Z85.3 Personal history of malignant neoplasm of breast; Z85.6 Personal history of leukemia; Z87.891 Personal history of nicotine dependence; Z86.73 Personal history of transient ischemic attack (TIA), and cerebral infarction without residual deficits; Z95.1 Presence of aortocoronary bypass graft
CPT/HCPCS: 36430; 71046; 80053; 81001; 82550; 82948; 83880; 84484; 85025; 85379; 86850; 86900; 86901; 86920; 87086; 93005; 96372; 99285; G0378; J1815; J1940; P9016